=== PATIENT | female | born 1950 | race African-American/Black ===

== ENCOUNTER 2016-08-16 08:04 | Outpatient (CLI) | payer MEDICARE, MEDICAID ==
[~2016-08-16 08:04] MED LIST: ACETAMINOPHEN 325 MG TABLET PO PRN; DIPHENHYDRAMINE HCL 50 MG/ML VIAL IV PRN; FERRIC CARBOXYMALTOSE 750 MG in NORMAL SALINE 250 ML IV PRN; NORMAL SALINE 250 ML IV PRN
[2016-08-16 09:12] VITALS: BP 104/69
== END 2016-08-16 10:18 | disposition home or self-care (01) ==
LOC: II 08:04 → 5TH 08:07 → II 10:18
PROVIDERS: ATTEND Specialist
PROC: 3E033GC Introduction of Other Therapeutic Substance into Peripheral Vein, Percutaneous Approach (ICD-10-PCS; principal; 2016-08-16)
DX: D50.8 Other iron deficiency anemias (principal); K90.9 Intestinal malabsorption, unspecified
CPT/HCPCS: 96365; 96375; A9270; J1200; J7050; J1439; 96374

== ENCOUNTER 2016-08-23 09:24 | Outpatient (CLI) | payer MEDICARE, MEDICAID ==
[~2016-08-23 09:24] MED LIST changes: -DIPHENHYDRAMINE HCL 50 MG/ML VIAL IV PRN
[2016-08-23] MEDS: DIPHENHYDRAMINE HCL 50 MG/ML VIAL IV PRN ×2 (09:38→09:48)
== END 2016-08-23 10:28 | disposition home or self-care (01) ==
LOC: II 09:24 → 5TH 09:32 → II 10:28
PROVIDERS: ATTEND Specialist
PROC: 3E033GC Introduction of Other Therapeutic Substance into Peripheral Vein, Percutaneous Approach (ICD-10-PCS; principal; 2016-08-23)
DX: D50.8 Other iron deficiency anemias (principal); K90.9 Intestinal malabsorption, unspecified
CPT/HCPCS: 96365; 96375; A9270; J1200; J7050; J1439; 96374

== ENCOUNTER 2016-09-04 10:34 | Observation (INO) | payer MEDICARE, MEDICAID ==
--- NOTE | 2016-09-04 10:41 | ER Document Report ---
ED Medical Screen (RME) - General Chief Complaint: Slurred Speech Stated Complaint: WEAKNESS Time seen by provider: 10:39 Mode of Arrival: Wheelchair Information source: Patient Notes: 66 year old female presents to ED for slurred speech increased weakness and heaviness to the left arm jerking motion to the left arm for the last 3 days. She's had TIAs and strokes in the past with left-sided weakness. She does have a facial droop to the left. States has a little bit of a headache. She states her family tried to get her to, couple days ago she did not want to. I have greeted and performed a rapid initial assessment of this patient. A comprehensive ED assessment and evaluation of the patient, analysis of test results and completion of medical decision making process will be conducted by an additional ED providers. TRAVEL OUTSIDE OF THE [place] IN LAST 30 DAYS: No - Related Data Allergies/Adverse Reactions: No Known Allergies Allergy (Verified 07/04/16 09:25) Past Medical History - Past Medical History Cardiac Medical History: Reports: Hx Hypercholesterolemia Denies: Hx Coronary Artery Disease, Hx Heart Attack, Hx Hypertension Pulmonary Medical History: Reports: Hx Bronchitis, Hx COPD, Hx Pneumonia - hx of Denies: Hx Asthma Neurological Medical History: Denies: Hx Cerebrovascular Accident, Hx Seizures Renal/ Medical History: Reports: Hx Kidney Stones GI Medical History: Reports: Hx Gastroesophageal Reflux Disease, Hx Ulcer. Denies: Hx Hepatitis, Hx Hiatal Hernia Musculoskeltal Medical History: Reports Hx Arthritis - Back & legs Psychiatric Medical History: Reports: Hx Anxiety, Hx Depression, Hx Schizophrenia Infectious Medical History: Denies: Hx Hepatitis Past Surgical History: Reports: Hx Cholecystectomy, Hx Hysterectomy, Hx Orthopedic Surgery - Cervical fusion, Hx Tubal Ligation. Denies: Hx Mastectomy , Hx Open Heart Surgery, Hx Pacemaker - Immunizations Immunizations up to date: Yes Hx Diphtheria, Pertussis, Tetanus Vaccination: No - unknown
[2016-09-04 11:42] LABS: ABSOLUTE EOSINOPHILS # (AUTO) 0.2 10^3/uL (0.0-0.6); ABSOLUTE LYMPHOCYTES (AUTO) 1.9 10^3/uL (0.5-4.7); ABSOLUTE MONOCYTES (AUTO) 0.4 10^3/uL (0.1-1.4); ABSOLUTE NEUT (AUTO) 2.5 10^3/uL (1.7-8.2); BASOPHILS % (AUTO) 0.3 % (0-2); EOSINOPHILS % (AUTO) 3.6 % (0-6); HEMATOCRIT 33.7 % (36.0-47.0); HEMOGLOBIN 10.4 g/dL (12.0-15.5); HGB HCT DIFFERENCE -2.5; MEAN CORPUSCULAR HEMOGLOBIN 23.2 pg (27.0-33.4); MEAN CORPUSCULAR HGB CONC 30.9 g/dL (32.0-36.0); MEAN CORPUSCULAR VOLUME 75 fl (80-97); MONOCYTES % (AUTO) 8.7 % (3-13); RED BLOOD COUNT 4.49 10^6/uL (3.72-5.28); RED CELL DISTRIBUTION WIDTH 17.3 % (11.5-14.0); SEGMENTED NEUTROPHILS % (AUTO) 49.4 % (42-78); WHITE BLOOD COUNT 5.1 10^3/uL (4.0-10.5)
[2016-09-04 11:45] LABS: PROTHROMBIN TIME 11.7 SEC (11.4-15.4)
[2016-09-04 11:46] LABS: PARTIAL THROMBOPLASTIN TIME 24.2 SEC (23.5-35.8)
[2016-09-04 11:55] LABS: ALANINE AMINOTRANSFERASE 61 U/L (9-52); ALBUMIN 4.2 g/dL (3.5-5.0); ALKALINE PHOSPHATASE 66 U/L (38-126); ANION GAP 9 (5-19); ASPARTATE AMINO TRANSFERASE 48 U/L (14-36); BILIRUBIN,TOTAL 0.4 mg/dL (0.2-1.3); BLOOD UREA NITROGEN 14 mg/dL (7-20); CALCIUM 9.3 mg/dL (8.4-10.2); CARBON DIOXIDE 31 mmol/L (22-30); CHLORIDE 102 mmol/L (98-107); CREATINE KINASE 79 U/L (30-135); GLUCOSE 71 mg/dL (75-110); SODIUM 142.1 mmol/L (137-145); TOTAL PROTEIN 7.3 g/dL (6.3-8.2)
[2016-09-04 12:22] LABS: CREATINE KINASE MB 0.63 ng/mL (<4.55)
[2016-09-04 12:23] LABS: TROPONIN I < 0.012 ng/mL
--- NOTE | 2016-09-04 13:40 | ER Document Report ---
[id number] Patient Notes: Patient is a 66 year old female with significant past medical history including CVA in 2013 that presents to the emergency department today with complaints of "feeling sick". Upon questioning, the patient elaborates and includes that she has been having left sided upper/lower extremity weakness and slurred speech. Patient states she has been having visual disturbances as well. Patient states all of these complaints began two days ago and have remained present. Patient states she has had a headache and chest pain as well but the chest pain subsided yesterday. Patient denies any falls or shortness of breath. TRAVEL OUTSIDE OF THE [place] IN LAST 30 DAYS: No - HPI Patient complains to provider of: Speech Impairment, Vision Changes, Weakness Onset: Other - x2 days Symptoms are: Worse/persistent Duration: Continues in ED Quality of pain: Achy Loss of consciousness: No loss of consciousness New weakness: LUE, LLE Impaired speech/swallowing: Difficult Vision problem/glaucoma: Yes Similar symptoms previously: Yes Recently seen / treated by doctor: Yes <MARILUZ JARRELL - Last Filed: 09/04/16 14:29> <THANIA CASTELLON - Last Filed: 09/19/16 01:02> - General Chief Complaint: S/S of Possible Stroke Stated Complaint: WEAKNESS - Related Data Allergies/Adverse Reactions: No Known Allergies Allergy (Verified 09/04/16 10:39) Home Medications: Current Home Medications Aspirin/Dipyridamole [Aggrenox 25 mg-200 mg Capsule] 1 each PO DAILY 09/04/16 [ History] Buprenorphine [Butrans] 1 each TD MO@1000 09/04/16 [History] Calcium Carb & Citrate/Vit D3 [Calcium + D3 ER Tablet] 1 each PO DAILY 09/04/16 [History] Doxepin HCl 150 mg PO QHS 09/04/16 [History] Esomeprazole Magnesium [Nexium 24Hr] 20 mg PO DAILY 09/04/16 [History] Past Medical History - General Information source: Patient - Social History Smoking Status: Never Smoker Cigarette use (# per day): No Chew tobacco use (# tins/day): No Frequency of alcohol use: None Drug Abuse: None Lives with: Family Family History: Reviewed & Not Pertinent Patient has suicidal ideation: No Patient has homicidal ideation: No - Past Medical History Cardiac Medical History: Reports: Hx Hypercholesterolemia Pulmonary Medical History: Reports: Hx Bronchitis, Hx COPD, Hx Pneumonia - hx of Neurological Medical History: Reports: Hx Migraine Renal/ Medical History: Reports: Hx Kidney Stones GI Medical History: Reports: Hx Gastroesophageal Reflux Disease, Hx Ulcer Musculoskeltal Medical History: Reports Hx Arthritis - Back & legs Psychiatric Medical History: Reports: Hx Anxiety, Hx Depression, Hx Schizophrenia Past Surgical History: Reports: Hx Cholecystectomy, Hx Hysterectomy, Hx Orthopedic Surgery - Cervical fusion, Hx Tubal Ligation - Immunizations Immunizations up to date: Yes Hx Diphtheria, Pertussis, Tetanus Vaccination: No - unknown Hx Pneumococcal Vaccination: 08/12/09 <MARILUZ JARRELL - Last Filed: 09/04/16 14:29> Review of Systems - Review of Systems Constitutional: No symptoms reported EENT: No symptoms reported Cardiovascular: See HPI, Chest pain Respiratory: denies: Short of breath Gastrointestinal: No symptoms reported Genitourinary: No symptoms reported Female Genitourinary: No symptoms reported Musculoskeletal: No symptoms reported Skin: No symptoms reported Hematologic/Lymphatic: No symptoms reported Neurological/Psychological: See HPI, Headaches, Other - Slurred speech, Left Arm /Leg weakness -: Yes All other systems reviewed and negative <MARILUZ JARRELL - Last Filed: 09/04/16 14:29> Physical Exam - Vital signs Vitals: Temp Pulse Resp BP Pulse Ox 98.0 F 112 H 18 125/77 98 09/04/16 10:40 09/04/16 10:40 09/04/16 10:40 09/04/16 10:40 09/04/16 10:40 - General General appearance: Appears well, Alert In distress: None - HEENT Head: Normocephalic, Atraumatic Eyes: Normal Extraocular movements intact: Yes - Respiratory Respiratory status: No respiratory distress Chest status: Nontender Breath sounds: Normal - Cardiovascular Rhythm: Regular Heart sounds: Normal auscultation Murmur: No - Abdominal Inspection: Normal Distension: No distension Bowel sounds: Normal Tenderness: Nontender - Extremities General upper extremity: Nontender. No: Edema General lower extremity: Nontender. No: Edema - Neurological Cognition: Normal Speech: Other - slurred speech Motor strength normal: RUE, RLE Notes: 2/4 strength in both upper and lower extremities on the left, right sided facial droop. - Psychological Associated symptoms: Normal affect, Normal mood - Skin Skin Temperature: Warm Skin Moisture: Dry Skin Color: Normal <MARILUZ JARRELL - Last Filed: 09/04/16 14:29> - Vital signs Vitals: Temp Pulse Resp BP Pulse Ox 98.0 F 112 H 18 125/77 98 09/04/16 10:40 09/04/16 10:40 09/04/16 10:40 09/04/16 10:40 09/04/16 10:40 <THANIA CASTELLON - Last Filed: 09/19/16 01:02> Course - Vital Signs Vital signs: Temp Pulse Resp BP Pulse Ox 98.0 F 85 25 H 111/75 98 09/04/16 10:40 09/04/16 12:10 09/04/16 12:10 09/04/16 12:10 09/04/16 12:10 - Laboratory Result Diagrams: 09/04/16 11:15 09/04/16 11:15 Laboratory results interpreted by me: 09/04/16 09/04/16 11:15 11:15 Hgb 10.4 L Hct 33.7 L MCV 75 L MCH 23.2 L MCHC 30.9 L RDW 17.3 H Carbon Dioxide 31 H Glucose 71 L AST 48 H ALT 61 H <MARILUZ JARRELL - Last Filed: 09/04/16 14:29> - Re-evaluation Re-evalutation: 09/04/16 14:27 I personally performed the services described in the documentation, reviewed and edited the documentation which was dictated to my scribe in my presence, and it accurately records my words and actions. Patient presents emergency Department with a 2 day history of slurred speech left upper extremity left lower extremity weakness. She has history of CVA in the past and uses a walker or cane for left-sided weakness she does not normally have slurred speech that the slurred speech started 2 days ago and has been consistent which brought her in. She said she's definitely weaker in the left upper extremity left lower extremity to the point where she can't ambulate with walker and a cane. Denies any history of fall well-appearing nontoxic does have slurred speech on examination otherwise normal mental status 2 out of 4 strength in left upper extremity left lower extremity compared to 5 out of 5 on the right. Negative acute CT of the head labs are stable EKG is stable. We will admit to the hospital CVA not in the window of opportunity for thrombolytics further assessment and evaluation - Vital Signs Vital signs: Temp Pulse Resp BP Pulse Ox 98.0 F 85 25 H 111/75 98 09/04/16 10:40 09/04/16 12:10 09/04/16 12:10 09/04/16 12:10 09/04/16 12:10 - Laboratory Result Diagrams: 09/04/16 11:15 09/04/16 11:15 Laboratory results interpreted by me: 09/04/16 09/04/16 11:15 11:15 Hgb 10.4 L Hct 33.7 L MCV 75 L MCH 23.2 L MCHC 30.9 L RDW 17.3 H Carbon Dioxide 31 H Glucose 71 L AST 48 H ALT 61 H - EKG Interpretation by Me Additional EKG results interpreted by me: 09/04/16 14:25 EKG interpreted by myself normal sinus rhythm at [address] segment elevation or depression <THANIA CASTELLON - Last Filed: 09/19/16 01:02> Critical Care Note - Critical Care Note Total time excluding time spent on procedures (mins): 45 <THANIA CASTELLON - Last Filed: 09/19/16 01:02> ED [employer]/Exc Criteria ED NIH Stroke Scale Discharge <MARILUZ JARRELL - Last Filed: 09/04/16 14:29> - Discharge Admitting Provider: Hospitalist Unit Admitted: Telemetry <THANIA CASTELLON - Last Filed: 09/19/16 01:02> - Discharge Clinical Impression: CVA (cerebral vascular accident) Qualifiers: CVA mechanism: other Qualified Code(s): I63.8 - Other cerebral infarction Condition: Stable Disposition: ADMITTED INPATIENT Scribe Documentation - Scribe Written by Patel:: Patel Bae, 09/04/16 [id number] acting as scribe for :: Stevo <MARILUZ JARRELL - Last Filed: 09/04/16 14:29>
[2016-09-04 14:41] LABS: APPEARANCE,URINE CLEAR; BILIRUBIN,URINE NEGATIVE (NEGATIVE); GLUCOSE, URINE NEGATIVE (NEGATIVE); KETONES,URINE NEGATIVE (NEGATIVE); LEUKOCYTE ESTERASE,URINE NEGATIVE (NEGATIVE); NITRITE,URINE NEGATIVE (NEGATIVE); PROTEIN,URINE NEGATIVE (NEGATIVE); URINE SPECIFIC GRAVITY 1.012; UROBILINOGEN,URINE NEGATIVE mg/dL (<2.0)
[2016-09-04] MEDS ORDERED: DOCUSATE SODIUM 100 MG CAPSULE PO PRN (16:47)
[2016-09-04] MEDS ORDERED: ONDANSETRON HCL INJ/PF 4 MG/2 ML SDV IV PRN (16:47)
[2016-09-04] MEDS ORDERED: ACETAMINOPHEN 325 MG TABLET PO PRN (16:47)
[2016-09-04] MEDS ORDERED: TRAMADOL HCL 50 MG TABLET PO PRN (16:56)
--- NOTE | 2016-09-04 17:21 | PDOC H&P ---
History of Present Illness Admission Date/PCP: 09/04/16 14:45 BATOOL THOMAS PA-C Patient complains of: Worsening left-sided weakness and slurring of speech History of Present Illness: DIPESH BRAUN is a 66 year old female, with prior history of stroke with residual slurring of speech and left-sided weakness walks using a walker or cane percentage to the emergency room with worsening symptoms for the past 3 days. Patient noted dragging the left side more than usual and having more speech difficulty than usual. Patient does have a headache, but no doubling of vision, dizziness, lightheadedness or any fever and chills. No sinus congestion as well. Patient did have some chest pain 2 days ago characterized as tightness that resolved yesterday. The patient went to the emergency room, had multiple TIAs in the past, recent echocardiogram June 2016 shows a normal ejection fraction with no source of emboli. Carotid Doppler on February 2016 shows no hemodynamically significant stenosis. Initial CT scan in the emergency room was negative for any acute abnormality. The patient was then referred for admission. Past Medical History Past Medical History: Medication reconciliation pending verification from the patient's pharmacist. Cardiac Medical History: Reports: Hyperlipidema Denies: Coronary Artery Disease, Myocardial Infarction, Hypertension Pulmonary Medical History: Reports: Bronchitis, Chronic Obstructive Pulmonary Disease (COPD), Pneumonia - hx of Denies: Asthma Neurological Medical History: Reports: Ischemic CVA, Migraine Denies: Seizures Renal/ Medical History: Reports: Nephrolithiasis GI Medical History: Reports: Gastroesophageal Reflux Disease Denies: Hepatitis, Hiatal Hernia Musculoskeltal Medical History: Reports: Arthritis - Back & legs Psychiatric Medical History: Reports: Depression, General Anxiety Disorder Hematology: Reports: Anemia - Thalassemia trait, Sickle Cell Disease, Bleeding Tendencies Past Surgical History Past Surgical History: Reports: Cholecystectomy, Hysterectomy, Orthopedic Surgery - Cervical fusion, Tubal Ligation Denies: Amputation, Mastectomy, Pacemaker Social History Information Source: Patient Lives with: Family Smoking Status: Never Smoker Frequency of Alcohol Use: None Hx Recreational Drug Use: No Drugs: None Hx Prescription Drug Abuse: No Family History Family History: Hypertension Parental Family History Reviewed: Yes Children Family History Reviewed: Yes Sibling(s) Family History Reviewed.: Yes Medication/Allergy Home Medications: Aspirin/Acetaminophen/Caffeine [Excedrin Migraine Caplet] 1 tab-cap PO DAILY PRN 05/04/16 Aspirin/Dipyridamole [Aggrenox 25 mg-200 mg Capsule] 1 each PO DAILY 05/04/16 Buprenorphine [Butrans] 1 each TD ASDIR PRN 05/04/16 Calcium Carb & Citrate/Vit D3 [Calcium + D3 ER Tablet] 1 each PO DAILY 05/04/16 Doxepin HCl 150 mg PO QHS 05/04/16 Folic Acid 1 mg PO DAILY 05/04/16 Famotidine 40 mg PO BID #60 tablet 05/19/16 Nicotine Polacrilex [Nicotine Lozenge] 4 mg BC ASDIR PRN 05/24/16 Nicotine [Nicotine Patch] 1 each TD DAILY 05/24/16 Allergies/Adverse Reactions: No Known Allergies Allergy (Verified 09/04/16 10:39) Review of Systems Constitutional: PRESENT: headache(s), weakness - Left side. ABSENT: chills, fever(s), weight gain, weight loss Eyes: PRESENT: visual disturbances - Blurring of vision chronically, other - No eye pain Ears: ABSENT: hearing changes Nose, Mouth, and Throat: ABSENT: mouth pain, sore throat, vertigo Cardiovascular: PRESENT: chest pain. ABSENT: dyspnea on exertion, edema, orthropnea, palpitations Respiratory: ABSENT: cough, dyspnea, hemoptysis, sputum Gastrointestinal: ABSENT: abdominal pain, constipation, diarrhea, hematemesis, hematochezia, melena, nausea, vomiting Genitourinary: ABSENT: dysuria, hematuria Musculoskeletal: ABSENT: joint swelling Integumentary: ABSENT: pruritus, rash, wounds Neurological: PRESENT: abnormal gait - Chronic, uses a walker and cane for ambulation, abnormal speech - Chronic, but worse today.. ABSENT: confusion, dizziness, focal weakness, frequent falls, numbness, paresthesias, syncope Psychiatric: ABSENT: hallucinations, homidical ideation, suicidal ideation Endocrine: ABSENT: cold intolerance, heat intolerance, polydipsia, polyphagia, polyuria Hematologic/Lymphatic: ABSENT: easy bleeding, easy bruising Allergic/Immunologic: ABSENT: seasonal rhinorrhea Physical Exam Vital Signs: Temp Pulse Resp BP Pulse Ox 98.0 F 91 13 113/81 93 09/04/16 10:40 09/04/16 16:17 09/04/16 16:20 09/04/16 16:20 09/04/16 16:20 General appearance: PRESENT: no acute distress, cooperative, well-developed Head exam: PRESENT: atraumatic, normocephalic Eye exam: PRESENT: conjunctiva pink, EOMI, PERRLA. ABSENT: scleral icterus Ear exam: PRESENT: normal external ear exam. ABSENT: drainage Mouth exam: PRESENT: moist, neck supple, tongue midline, other - Uses dentures Throat exam: ABSENT: post pharyngeal erythema, tonsillar erythema Neck exam: ABSENT: carotid bruit, JVD, lymphadenopathy, thyromegaly Respiratory exam: PRESENT: clear to auscultation gerard. ABSENT: rales, rhonchi, wheezes Cardiovascular exam: PRESENT: RRR, +S1, +S2. ABSENT: diastolic murmur, gallop, rubs, systolic murmur Pulses: PRESENT: normal dorsalis pedis pul Vascular exam: PRESENT: normal capillary refill GI/Abdominal exam: PRESENT: normal bowel sounds, soft. ABSENT: distended, guarding, mass, organolmegaly, rebound, tenderness Rectal exam: PRESENT: deferred Extremities exam: PRESENT: full ROM, other - Trace lower extremity edema bilateral. ABSENT: calf tenderness, clubbing Neurological exam: PRESENT: alert, awake, oriented to person, oriented to place , oriented to time, oriented to situation, other - Speech is fluid but relates mild slurring, shallow left nasolabial fold, manual muscle testing 4 minus over 5 on the left, 4+ on the right. Psychiatric exam: PRESENT: appropriate affect, normal mood. ABSENT: agitated, homicidal ideation, suicidal ideation Focused psych exam: ABSENT: restlessness Skin exam: PRESENT: dry, intact, warm. ABSENT: cyanosis, rash Results Impressions: Head CT 09/04/16 10:37 IMPRESSION: NORMAL BRAIN CT WITHOUT CONTRAST. Assessment & Plan - Diagnosis (1) CVA (cerebral vascular accident) Qualifiers: CVA mechanism: other Qualified Code(s): I63.8 - Other cerebral infarction Is this a current diagnosis for this admission?: Yes (2) TIA (transient ischemic attack) Qualifiers: Transient cerebral ischemia type: unspecified Qualified Code(s): G45.9 - Transient cerebral ischemic attack, unspecified Is this a current diagnosis for this admission?: Yes (3) Chest pain Qualifiers: Chest pain type: unspecified Qualified Code(s): R07.9 - Chest pain, unspecified Is this a current diagnosis for this admission?: Yes (4) Anemia of chronic disease Is this a current diagnosis for this admission?: Yes (5) Chronic obstructive pulmonary disease (COPD) Qualifiers: Emphysema type: unspecified Is this a current diagnosis for this admission?: Yes (6) Migraine Qualifiers: Migraine type: unspecified Status migrainosus presence: without status migrainosus Intractability: not intractable Qualified Code(s): G43.909 - Migraine, unspecified, not intractable, without status migrainosus Is this a current diagnosis for this admission?: Yes (7) GERD (gastroesophageal reflux disease) Qualifiers: Esophagitis presence: without esophagitis Qualified Code(s): K21.9 - Gastro-esophageal reflux disease without esophagitis Is this a current diagnosis for this admission?: Yes (8) Anxiety and depression Is this a current diagnosis for this admission?: Yes - Time Time Spent: 30 to 50 Minutes - Plan Summary Plan Summary: The patient will be admitted to observation telemetry. We will continue the patient's Aggrenox and add aspirin. We will obtain MRI of the brain. Patient already had a recent echocardiogram and carotid Doppler. We will have physical therapy evaluate the patient. We will have speech therapy evaluate the swallowing. A fasting lipid panel will be obtained. Anemia profile will also be done. We will check serial cardiac enzymes 3. Further testing depends on the initial evaluation as outlined above.
[2016-09-04] MEDS ORDERED: ENOXAPARIN SODIUM INJ 40 MG/0.4 ML DISP.SYRIN SUBCUT ONE (17:45)
--- NOTE | 2016-09-04 18:42 | EKG REPORT ---
SEVERITY:- NORMAL ECG - SINUS RHYTHM : Confirmed by: Tammy Hendrix MD 04-Sep-2016 18:40:47
[2016-09-04 18:48] LABS: CREATINE KINASE 52 U/L (30-135)
[2016-09-04 20:00] LABS: FOLATE > 20.00 ng/mL (>2.76)
[2016-09-04] MEDS ORDERED: (PENDING PHARMACY ID) (Doxepin Hcl [Doxepin Hcl] 150 MG) PO SCH (22:00)
[2016-09-04] MEDS ORDERED: DOXEPIN HCL 25 MG CAPSULE PO ONE (23:30)
[2016-09-05] MEDS: LABETALOL HCL INJ 20 MG/4 ML DISP.SYRIN IV PRN ×5 (03:25→16:54)
[2016-09-05] MEDS ORDERED: LANSOPRAZOLE 30 MG TAB.RAP.DR PO SCH (06:00)
[2016-09-05 07:33] LABS: CHOLESTEROL 151.51 mg/dL (0-200); Direct HDL 34 mg/dL (>40); TRIGLYCERIDES 183 mg/dL (<150)
[2016-09-05 07:44] LABS: DIRECT LDL 88 mg/dL (<100)
[2016-09-05] MEDS ORDERED: ENOXAPARIN SODIUM INJ 40 MG/0.4 ML DISP.SYRIN SUBCUT SCH (08:00)
[2016-09-05 08:02] LABS: VLDL CHOLESTEROL 36.6 mg/dL (10-31)
[2016-09-05] MEDS ORDERED: ASPIRIN/DIPYRIDAMOLE 25-200 MG 1 CAP.SR CPMP.12HR PO SCH (10:00)
[2016-09-05] MEDS ORDERED: FOLIC ACID 1 MG TABLET PO SCH (10:00)
[2016-09-05] MEDS ORDERED: ASPIRIN 81 MG TABLET, CHEWABLE PO SCH (10:00)
--- NOTE | 2016-09-05 16:32 | Physician Advisory Note ---
Physician Advisor ProgressNote .: [facility], I have reviewed the medical record for this patient. Physician Advisor Statement: Possible documentation opportunities if attending agrees: 1A. "Acute TIA of ___ [site] w/worsened Lt nondominant hemiplegia & dysarthria "? - or - 1B. "Acute Rt-sided thrombotic [or embolic, or other etiology] ___ artery* CVA with cerebral infarction, with worsened Lt nondominant hemiparesis & dysarthria, both resolved/improved " [*Ant/middle/post cerebral , sup cerebellar, or ant/post inf cerebellar artery?] - or - 1C. "Acute due to atherosclerotic cerebrovascular dz with Lt nondominant hemiparesis & dysarthria, resolved. " [ or due to ] [ cerebrovascular insufficiency vs "reversible cerebrovascular vasoconstriction syndrome" - vs "Acute cerebral ischemia"] 2. ? - "chronic Lt hemiplegia due to possible previous CVA" [or ...] 3. "Chest pain, most likely due to ____" ["noncardiac" is not specific enough for coding, though] 4. "Chronic Anemia of chronic sickle thall dz" [or ...] - Need to specify type of chronic dz now. As always, if concerned about any unstable VS or abnormal labs, please comment on them & note what doing about them, & please document each day the potential clinical problems you are concerned could occur if pt not kept in hospital for tx at this time. Thanks for your help with documentation accuracy/specificity improvement! Sarai Borja MD [facility] Physician Advisor, Fellow of Hospital Medicine
--- NOTE | 2016-09-05 16:50 | PDOC DISCHARGE SUMMARY ---
General - Admit/Disc Date/PCP Admission Date/Primary Care Provider: 09/04/16 16:47 BATOOL THOMAS PA-C Discharge Date: 09/05/16 - Discharge Diagnosis (1) TIA (transient ischemic attack) Is this a current diagnosis for this admission?: Yes (2) Chest pain Is this a current diagnosis for this admission?: Yes (3) Anemia of chronic disease Is this a current diagnosis for this admission?: Yes (4) Chronic obstructive pulmonary disease (COPD) Is this a current diagnosis for this admission?: Yes (5) Migraine Is this a current diagnosis for this admission?: Yes (6) GERD (gastroesophageal reflux disease) Is this a current diagnosis for this admission?: Yes (7) Anxiety and depression Is this a current diagnosis for this admission?: Yes (8) History of stroke Is this a current diagnosis for this admission?: Yes - Additional Information Discharge Diet: Cardiac - low-fat low-salt Discharge Activity: Activity As Tolerated, Balance Activity w/Rest Home Medications: Aspirin/Dipyridamole [Aggrenox 25 mg-200 mg Capsule] 1 each PO DAILY 09/04/16 Buprenorphine [Butrans] 1 each TD MO@1000 09/04/16 Calcium Carb & Citrate/Vit D3 [Calcium + D3 ER Tablet] 1 each PO DAILY 09/04/16 Doxepin HCl 150 mg PO QHS 09/04/16 Esomeprazole Magnesium [Nexium 24Hr] 20 mg PO DAILY 09/04/16 Aspirin [Aspirin 81 mg Chewable Tablet] 81 mg PO DAILY tab.chew 09/05/16 Tramadol HCl [Ultram 50 mg Tablet] 50 mg PO Q8HP PRN #30 tablet 09/05/16 Additional Information: Stress test as outpatient with primary care physician History of Present Illness Patient complains of: Increasing weakness and slurring of speech History of Present Illness: DIPESH BRAUN is a 66 year old female, with prior history of stroke with residual slurring of speech and left-sided weakness walks using a walker or cane percentage to the emergency room with worsening symptoms for the past 3 days. Patient noted dragging the left side more than usual and having more speech difficulty than usual. Patient does have a headache, but no doubling of vision, dizziness, lightheadedness or any fever and chills. No sinus congestion as well. Patient did have some chest pain 2 days ago characterized as tightness that resolved yesterday. The patient went to the emergency room, had multiple TIAs in the past, recent echocardiogram June 2016 shows a normal ejection fraction with no source of emboli. Carotid Doppler on February 2016 shows no hemodynamically significant stenosis. Initial CT scan in the emergency room was negative for any acute abnormality. The patient was then referred for admission. Hospital Course Hospital Course: The patient was admitted to telemetry under observation. An MRI of the brain was ordered. The patient was placed on antiplatelet therapy with aspirin in addition to her Aggrenox. She was given supplemental oxygen and likewise DVT prophylaxis with Lovenox. Serial cardiac enzymes were obtained and they were negative for myocardial infarction. Patient does not want to have a stress test done while in the hospital facility. Speech therapy was obtained and recommended to have therapy on an outpatient basis for improvement in function. Physical therapy will be added as well with home health. MRI of the brain eventually was obtained and was negative for any acute stroke. Patient had a recent Doppler of her carotids that was negative for significant stenosis. She had a recent echocardiogram done as well showing no significant valvular disease. The patient's symptoms had improved. Likely transient ischemic attack could have attributed to her symptoms of which she has always been aware. The rest of the hospital stay is unremarkable. Physical Exam Vital Signs: Temp Pulse Resp BP Pulse Ox 98.2 F 102 H 19 115/81 98 09/05/16 15:51 09/05/16 16:00 09/05/16 16:00 09/05/16 16:00 09/05/16 16:00 Intake & Output 09/04/16 09/05/16 09/06/16 06:59 06:59 06:59 Intake Total 5 0 Balance 5 0 Weight 65.4 kg General appearance: PRESENT: no acute distress, cooperative Head exam: PRESENT: normocephalic Eye exam: PRESENT: EOMI Mouth exam: PRESENT: moist, neck supple Neck exam: ABSENT: JVD Respiratory exam: PRESENT: clear to auscultation gerard Cardiovascular exam: PRESENT: RRR GI/Abdominal exam: PRESENT: normal bowel sounds, soft. ABSENT: distended, tenderness Extremities exam: ABSENT: pedal edema Neurological exam: PRESENT: alert, awake, oriented to situation, other - Shallow left nasolabial fold unchanged, right-sided 4+/5, left side 4-/5. Psychiatric exam: PRESENT: normal mood. ABSENT: agitated Focused psych exam: ABSENT: restlessness Skin exam: PRESENT: dry, warm. ABSENT: cyanosis Results Laboratory Results: 09/04/16 09/05/16 18:30 06:39 Iron 124 TIBC 273 % Saturation 45 Ferritin 907.00 H Triglycerides 183 H Cholesterol 151.51 LDL Cholesterol Direct 88 VLDL Cholesterol 36.6 H HDL Cholesterol 34 L Vitamin B12 281.0 Folate > 20.00 09/04/16 09/04/16 09/05/16 18:30 18:30 00:26 Creatine Kinase 52 61 Troponin I < 0.012 09/05/16 09/05/16 09/05/16 00:26 06:39 06:39 Creatine Kinase 58 Troponin I < 0.012 0.017 Impressions: Head CT 09/04/16 10:37 IMPRESSION: NORMAL BRAIN CT WITHOUT CONTRAST. Head MRI 09/05/16 07:09 IMPRESSION: NORMAL MRI OF THE BRAIN WITHOUT INTRAVENOUS GADOLINIUM CONTRAST. Qualifiers PATEINT BEING DISCHARGED WITH ANY OF THE FOLLOWING DIAGNOSIS?: No Plan Discharge Plan: Follow-up with primary care physician in one week. Time Spent: Less than 30 Minutes
[2016-09-05 16:56] VITALS: BP 114/79
[2016-09-05] MEDS ORDERED: DOXEPIN HCL 25 MG CAPSULE PO SCH (22:00)
== END 2016-09-05 17:09 | disposition home health service (06) ==
LOC: ER 10:34 → INTOOBSV 14:45 → EH 14:45 → UNDOADMOB 14:45 → EH 16:47 → 3N 09-05 01:50
DX: G45.9 Transient cerebral ischemic attack, unspecified (principal); R07.9 Chest pain, unspecified; D57.40 Sickle-cell thalassemia without crisis; J44.9 Chronic obstructive pulmonary disease, unspecified; G43.909 Migraine, unspecified, not intractable, without status migrainosus; K21.9 Gastro-esophageal reflux disease without esophagitis; F41.8 Other specified anxiety disorders; E78.5 Hyperlipidemia, unspecified; M19.90 Unspecified osteoarthritis, unspecified site; Z79.82 Long term (current) use of aspirin
CPT/HCPCS: 93005; 99291; 51701; 36415 ×2; 82553; 82607; 82550 ×2; 82728; 82746; 83540; 83550; 85025; 85610; 85730; 85045; 80053; 81001; 84484 ×2; 80061; 70551; 70450; 93010; 97162; 92610; 92523; 97167; G0378 ×3; A9270 ×6; J1650 ×2; J3490; G8978; G8979; G8980; G8999; G9186; G9158; G8987; G8988; G8989

== ENCOUNTER → 2017-04-22 | Outpatient (CLI) | payer MEDICARE, MEDICAID ==
--- NOTE | 2017-04-22 11:32 | WOMENS IMAGING REPORT ---
EXAM DESCRIPTION: BILAT SCREENING MAMMO W/CAD COMPLETED DATE/TIME: 04/22/2017 8:38 am REASON FOR STUDY: SCREENING MAMMO Z12.31 ENCNTR SCREEN MAMMOGRAM FOR MALIGNANT NEOPLASM OF LILY COMPARISON: 2011 TECHNIQUE: Standard craniocaudal and mediolateral oblique views of each breast recorded using digita l acquisition. LIMITATIONS: None. FINDINGS: No masses, calcifications or architectural distortion. No areas of suspicion. Read with the assistance of CAD. .[facility] - R2 Cenova Version 1.3 .[facility] Imaging - R2 Cenova Version 1.3 .[facility] Imaging - R2 Cenova Version 2.4 .[facility] [place]2 Cenova Version 2.4 .[facility] - R2 Balance Truer Version 9.2 IMPRESSION: NORMAL MAMMOGRAM. BIRADS 1. BREAST DENSITY: c. The breasts are heterogeneously dense, which may obscure small masses. BIRAD: 1 NEGATIVE RECOMMENDATION: ROUTINE SCREENING COMMENT: The patient has been notified of the results by letter per SA requirements. Additional no tification policies are in place for contacting patient with suspicious or incomplete findings. Quality ID #[id number]: The [employer] recommends an annual screening mammogram for women aged 40 years or over. This facility utilizes a reminder system to ensure that all patients receive reminder letters, and/or direct phone calls for appointments. This includes reminders for routine scr eening mammograms, diagnostic mammograms, or other Breast Imaging Interventions when appropriate. Th is patient will be placed in the appropriate reminder system. The [employer] (ACR) has developed recommendations for screening MRI of the breast s in certain patient populations, to be used in conjunction with mammography. Breast MRI surveillanc e may be appropriate for women with more than 20% lifetime risk of developing breast cancer as deter mined by genetic testing, significant family history of the disease, or history of mantle radiation f or Hodgkins Disease. ACR Practice Guidelines 2008. TECHNICAL DOCUMENTATION: FINDING NUMBER: (1) ASSESSMENT: (1) JOB ID: [id number] [employer]- All Rights Reserved
== END ==
LOC: WI 08:02
PROVIDERS: ATTEND Physician Assistant
DX: Z12.31 Encounter for screening mammogram for malignant neoplasm of breast (principal)
CPT/HCPCS: 77067; G0202

== ENCOUNTER → 2017-06-28 | Outpatient (CLI) | payer MEDICARE, MEDICAID ==
--- NOTE | 2017-06-28 11:34 | RADIOLOGY REPORT (SQ) ---
EXAM DESCRIPTION: CHEST PA/LATERAL COMPLETED DATE/TIME: 06/28/2017 11:21 am REASON FOR STUDY: COUGH COMPARISON: CT angio chest 03/05/2015 Chest films 05/29/2015, 02/10/2016 EXAM PARAMETERS: NUMBER OF VIEWS: two views TECHNIQUE: Digital Frontal and Lateral radiographic views of the chest acquired. RADIATION DOSE: NA LIMITATIONS: none FINDINGS: LUNGS AND PLEURA: No acute infiltrates. No pleural effusion or pneumothorax. Minimal lef t basilar scarring or atelectasis similar compared to CT angio chest 03/05/2015. MEDIASTINUM AND HILAR STRUCTURES: No masses or contour abnormalities. HEART AND VASCULAR STRUCTURES: Heart normal size. No evidence for failure. BONES: Multiple old healed right rib fractures. Lower cervical fusion hardware. HARDWARE: Clips right upper quadrant post cholecystectomy OTHER: No other significant finding. IMPRESSION: No acute findings TECHNICAL DOCUMENTATION: JOB ID: [id number] [employer]- All Rights Reserved
== END ==
LOC: OD 11:04
PROVIDERS: ATTEND Physician Assistant
DX: R05 Cough (principal)
CPT/HCPCS: 71020

== ENCOUNTER 2017-07-04 16:26 | Emergency (ER) | payer MEDICARE, MEDICAID ==
--- NOTE | 2017-07-04 18:04 | RADIOLOGY REPORT (SQ) ---
EXAM DESCRIPTION: CT HEAD WITHOUT COMPLETED DATE/TIME: 07/04/2017 5:41 pm REASON FOR STUDY: Sharp pain right scalp for 2 days, Hx stroke 3 COMPARISON: MRI brain 09/05/[address] exams since 12/03/2006, most recently 09/04/2016 TECHNIQUE: Axial images acquired through the brain without intravenous contrast. Images reviewed wi th bone, brain and subdural windows. Images stored on PACS. All CT scanners at this facility use dose modulation, iterative reconstruction, and/or weight based d osing when appropriate to reduce radiation dose to as low as reasonably achievable (ALARA). [facility]: Dose Right [facility]: CareDose [facility]: Dose Right [facility]: Teradose 4D [facility]: Duplia RADIATION DOSE: CT Rad equipment meets quality standard of care and radiation dose reduction techniq ues were employed. CTDIvol: 64.6 mGy. DLP: 1034 mGy-cm. mGy. LIMITATIONS: Motion artifact FINDINGS: VENTRICLES: Normal size and contour. CEREBRUM: No masses. No hemorrhage. No midline shift. No evidence for acute infarction. Normal gra y/white matter differentiation. No areas of low density in the white matter. CEREBELLUM: No masses. No hemorrhage. No alteration of density. No evidence for acute infarction. EXTRAAXIAL SPACES: No fluid collections. No masses. ORBITS AND GLOBE: No intra- or extraconal masses. Normal contour of globe without masses. CALVARIUM: No fracture. PARANASAL SINUSES: No fluid or mucosal thickening. SOFT TISSUES: No mass or hematoma. OTHER: No other significant finding. IMPRESSION: Motion artifact. Limited negative study EVIDENCE OF ACUTE STROKE: NO. COMMENT: Quality ID # [id number]: Final reports with documentation of one or more dose reduction techniques (e.g., Automated exposure control, adjustment of the mA and/or kV according to patient size, use of iterative reconstruction technique) TECHNICAL DOCUMENTATION: JOB ID: [id number] [employer]- All Rights Reserved
[2017-07-04] MEDS ORDERED: HYDROCODONE/ACETAMINOPHEN 5-325 MG 6 TAB/DSPK PO PRN ×2 (18:26→18:28)
[2017-07-04 18:31] VITALS: BP 106/77
--- NOTE | 2017-07-04 18:34 | ER Document Report ---
ED Headache - General Chief Complaint: Headache Stated Complaint: HEADACHE Time Seen by Provider: 07/04/17 16:53 Notes: Patient says she is experiencing a sharp pain in the right side of her scalp since Saturday. She has a history of migraine headaches which she gets headaches all over her abdomen, but this pain is different. She is also having her 1 of her migraine headaches. The sharp pain comes and goes. She is tried Aleve and Tylenol and Tylenol 3's which she has to take for her migraine headaches, which are global in nature. Her vision is somewhat blurred. Denies any fever. Is nauseated but not vomiting. No head congestion or sinus congestions. Denies fever. Patient has had 3 strokes in the past, primarily affecting her left side, resulting in her walking with a cane or walker. TRAVEL OUTSIDE OF THE [place] IN LAST 30 DAYS: No - Related Data Allergies/Adverse Reactions: No Known Allergies Allergy (Verified 07/04/17 16:27) Past Medical History - Social History Smoking Status: Unknown if Ever Smoked Cigarette use (# per day): No Family History: Reviewed & Not Pertinent, Hypertension - Past Medical History Cardiac Medical History: Reports: Hx Hypercholesterolemia Denies: Hx Coronary Artery Disease, Hx Heart Attack, Hx Hypertension Pulmonary Medical History: Reports: Hx Bronchitis, Hx COPD, Hx Pneumonia - hx of Denies: Hx Asthma Neurological Medical History: Reports: Hx Cerebrovascular Accident - 3 prior strokes resulting in left-sided weakness., Hx Migraine. Denies: Hx Seizures Renal/ Medical History: Reports: Hx Kidney Stones GI Medical History: Reports: Hx Gastroesophageal Reflux Disease, Hx Ulcer Musculoskeltal Medical History: Reports Hx Arthritis - Back & legs Psychiatric Medical History: Reports: Hx Anxiety, Hx Depression, Hx Schizophrenia Past Surgical History: Reports: Hx Cholecystectomy, Hx Gynecologic Surgery - Pelvic abscess surgery, Hx Hysterectomy, Hx Orthopedic Surgery - Cervical fusion , Hx Tubal Ligation, Other - Cataract surgery - Immunizations Immunizations up to date: Yes Hx Diphtheria, Pertussis, Tetanus Vaccination: No - unknown Hx Pneumococcal Vaccination: 08/12/09 Review of Systems - Review of Systems Notes: REVIEW OF SYSTEMS: CONSTITUTIONAL : Denies fever. EENT: Denies eye, ear, nose or mouth or throat pain or other symptoms. CARDIOVASCULAR: Denies chest pain. RESPIRATORY: Denies cough, chest congestion, or shortness of breath. GASTROINTESTINAL: Denies abdominal pain or vomiting, or diarrhea. Has some nausea. GENITOURINARY: Denies difficulty or painful urinating, urinary frequency, blood in urine. MUSCULOSKELETAL: Denies back or neck pain. Denies joint pain or swelling. SKIN: Denies rash or skin lesions. NEUROLOGICAL: Denies LOC or altered mental status. Denies sensory loss or motor deficits. ALL OTHER SYSTEMS REVIEWED AND NEGATIVE. Physical Exam - Vital signs Vitals: Temp Pulse Resp BP Pulse Ox 98.1 F 85 22 H 141/75 H 96 07/04/17 16:27 07/04/17 16:27 07/04/17 16:27 07/04/17 16:27 07/04/17 16:27 Interpretation: Normal - Notes Notes: PHYSICAL EXAMINATION: GENERAL: Well-appearing, in no acute distress. Vital signs are all essentially normal. HEAD: Atraumatic, normocephalic. EYES: Pupils equal round and reactive to light, extraocular movements intact. ENT: oropharynx clear without exudates. Moist mucous membranes. NECK: Normal range of motion, supple. LUNGS: Breath sounds clear and equal bilaterally. HEART: Regular rate and rhythm without murmurs. ABDOMEN: Soft, nontender. No guarding or rebound. BACK: No tenderness throughout entire back. EXTREMITIES: Normal range of motion without pain. NEUROLOGICAL: Normal speech, patient's gait is affected by her residual weakness of the left side for which she needs to use a cane in order to walk.. Normal sensory, motor, and reflex exams. Awake, alert, and oriented x3. PSYCH: Normal mood, normal affect. SKIN: Warm, dry, no rashes. Course - Vital Signs Vital signs: Temp Pulse Resp BP Pulse Ox 97.8 F 78 20 106/77 98 07/04/17 18:29 07/04/17 18:29 07/04/17 18:29 07/04/17 18:29 07/04/17 18:29 - Diagnostic Test Radiology reviewed: Image reviewed, Reports reviewed - CT scan was limited by motion artifact, but no acute conditions noted. Discharge - Discharge Clinical Impression: Headache Condition: Stable Disposition: HOME, SELF-CARE Additional Instructions: HEADACHE: The physician does not feel that the headache you are experiencing has a serious underlying cause. Most headaches are due to emotional stress, with resultant muscle tension (tension headache). Occasionally, headaches are secondary to changes in the blood vessels of the scalp (vascular headache and migraine headache). Sometimes, a headache is the first symptom of another developing illness, such as a viral infection. You have no evidence of stroke, bleeding, meningitis, or other serious cause of your headache. The treatment of headaches varies with the severity and cause of the pain. Not all headaches need pain shots. In fact, there is evidence that using narcotics for headaches may make them worse in the long run. The physician will determine the therapy that's in your best interest. If you develop a fever, if the headache is different from any you've previously experienced, or if the headache progressively worsens, then call your physician at once or go to the emergency room. Your CT scan did not show any acute abnormality. There is no evidence of another stroke. ORAL NARCOTIC MEDICATION: You have been given a prescription for pain control. This medication is a narcotic. It's best taken with food, as nausea can result if taken on an empty stomach. Don't operate machinery or drive within six hours of taking this medication. Do not combine this medicine with alcohol, or with any medication which can cause sedation (such as cold tablets or sleeping pills) unless you get permission from the physician. Narcotics tend to cause constipation. If possible, drink plenty of fluids and eat a diet high in fiber and fruits. FOLLOW-UP CARE: If you have been referred to a physician for follow-up care, call the physician s office for an appointment as you were instructed or within the next two days. If you experience worsening or a significant change in your symptoms, notify the physician immediately or return to the Emergency Department at any time for re-evaluation. Follow-up with your primary care provider on Saturday if you are not doing any better. Return to the emergency department for reevaluation at any time if you have further concerns. Referrals: BATOOL THOMAS PA-C [Primary Care Provider] - Follow up in 3-5 days
== END 2017-07-04 19:20 | disposition home or self-care (01) ==
LOC: ER 16:26
DX: R51 Headache (principal); Z79.899 Other long term (current) drug therapy
CPT/HCPCS: 99283; 70450; A9270

== ENCOUNTER 2017-07-28 08:42 | Emergency (ER) | payer MEDICARE, MEDICAID ==
[2017-07-28 08:49] VITALS: BP 113/75
[2017-07-28] MEDS ORDERED: CYCLOBENZAPRINE HCL 10 MG TABLET PO ONE (09:29)
--- NOTE | 2017-07-28 09:34 | ER Document Report ---
ED Fall - General Chief Complaint: Fall Stated Complaint: FALL/NECK PAIN Time Seen by Provider: 07/28/17 09:13 Mode of Arrival: Ambulatory Information source: Patient Notes: Patient is a 67-year-old female with history of 3 strokes and left-sided weakness who presents to the ER today for a fall after she lost her footing going to the bathroom yesterday. Patient states that she fell onto her knees and caught herself with the door jam with her hands. Patient is complaining that since the fall she is felt not to her left upper chest, collarbone and pain with rotating her head to the left or looking upwards. She states that she can look to the right without any pain. She also complains of right lower back pain with no radiation down her legs or numbness or tingling. She denies any loss of bladder or bowel function. TRAVEL OUTSIDE OF THE [place] IN LAST 30 DAYS: No - Related data Allergies/Adverse Reactions: No Known Allergies Allergy (Verified 07/04/17 16:27) Past Medical History - General Information source: Patient - Social History Smoking Status: Current Some Day Smoker Chew tobacco use (# tins/day): No Frequency of alcohol use: None Drug Abuse: None Family History: Reviewed & Not Pertinent, Hypertension Patient has suicidal ideation: No Patient has homicidal ideation: No - Past Medical History Cardiac Medical History: Reports: Hx Hypercholesterolemia Denies: Hx Coronary Artery Disease, Hx Heart Attack, Hx Hypertension Pulmonary Medical History: Reports: Hx Bronchitis, Hx COPD, Hx Pneumonia - hx of Denies: Hx Asthma Neurological Medical History: Reports: Hx Cerebrovascular Accident - 3 prior strokes resulting in left-sided weakness., Hx Migraine. Denies: Hx Seizures Renal/ Medical History: Reports: Hx Kidney Stones. Denies: Hx Peritoneal Dialysis GI Medical History: Reports: Hx Gastroesophageal Reflux Disease, Hx Ulcer. Denies: Hx Hepatitis, Hx Hiatal Hernia Musculoskeltal Medical History: Reports Hx Arthritis - Back & legs Psychiatric Medical History: Reports: Hx Anxiety, Hx Depression, Hx Schizophrenia Infectious Medical History: Denies: Hx Hepatitis Past Surgical History: Reports: Hx Cholecystectomy, Hx Gynecologic Surgery - Pelvic abscess surgery, Hx Hysterectomy, Hx Orthopedic Surgery - Cervical fusion , Hx Tubal Ligation, Other - Cataract surgery. Denies: Hx Mastectomy, Hx Open Heart Surgery, Hx Pacemaker - Immunizations Immunizations up to date: Yes Hx Diphtheria, Pertussis, Tetanus Vaccination: No - unknown Hx Pneumococcal Vaccination: 08/12/09 Review of Systems - Review of Systems Constitutional: No symptoms reported EENT: No symptoms reported Cardiovascular: No symptoms reported Respiratory: No symptoms reported Gastrointestinal: No symptoms reported Genitourinary: No symptoms reported Female Genitourinary: No symptoms reported Musculoskeletal: See HPI Skin: See HPI Hematologic/Lymphatic: No symptoms reported Neurological/Psychological: No symptoms reported Physical Exam - Vital signs Vitals: Temp Pulse Resp BP Pulse Ox 98.5 F 102 H 16 113/75 98 07/28/17 08:48 07/28/17 08:48 07/28/17 08:48 07/28/17 08:48 07/28/17 08:48 - Notes Notes: PHYSICAL EXAMINATION: GENERAL: Appears older than stated age, walking with cane, in no acute distress. HEAD: Atraumatic, normocephalic. EYES: Pupils equal round and reactive to light, extraocular movements intact, sclera anicteric, conjunctiva are normal. NECK: Limited range of motion with rotation of the head to the left and extension looking upwards, supple without lymphadenopathy LUNGS: CTAB and equal. No wheezes rales or rhonchi. HEART: Regular rate and rhythm without murmurs EXTREMITIES: tender to right medial clavicle, Normal range of motion, no pitting edema. No cyanosis. NEUROLOGICAL: Cranial nerves grossly intact. Normal sensory/motor exams. PSYCH: Normal mood, normal affect. SKIN: Warm, Dry, normal turgor, no rashes or lesions noted Course - Re-evaluation Re-evalutation: 07/28/17 10:39 Clavicle and cervical x-rays negative for any acute pathology today. Patient will be given a low dose of Flexeril and discharged home. - Vital Signs Vital signs: Temp Pulse Resp BP Pulse Ox 98.5 F 102 H 16 113/75 98 07/28/17 08:48 07/28/17 08:48 07/28/17 08:48 07/28/17 08:48 07/28/17 08:48 Discharge - Discharge Clinical Impression: Neck pain Fall Qualifiers: Encounter type: initial encounter Qualified Code(s): W19.XXXA - Unspecified fall, initial encounter Condition: Stable Disposition: HOME, SELF-CARE Additional Instructions: Return immediately for any new or worsening symptoms. Follow up with primary care provider, call tomorrow to make followup appointment. Prescriptions: Cyclobenzaprine HCl [Flexeril 5 mg Tablet] 5 mg PO TID #15 tablet
--- NOTE | 2017-07-28 10:33 | RADIOLOGY REPORT (SQ) ---
EXAM DESCRIPTION: CLAVICLE LEFT COMPLETED DATE/TIME: 07/28/2017 10:04 am REASON FOR STUDY: fall, pain COMPARISON: Chest films 06/28/2017 NUMBER OF VIEWS: Two views. TECHNIQUE: Frontal and angled images were acquired of the left clavicle. LIMITATIONS: None. FINDINGS: MINERALIZATION: Osteopenic BONES: No acute fracture or dislocation. No worrisome bone lesions. No widening of the acromioclavi cular display fabricator. No gross glenohumeral malalignment. SOFT TISSUES: No obvious swelling or foreign body. OTHER: Lower cervical fusion hardware. IMPRESSION: NEGATIVE STUDY OF THE LEFT CLAVICLE. NO RADIOGRAPHIC EVIDENCE OF ACUTE INJURY. TECHNICAL DOCUMENTATION: JOB ID: [id number] [employer]- All Rights Reserved
--- NOTE | 2017-07-28 10:34 | RADIOLOGY REPORT (SQ) ---
EXAM DESCRIPTION: CERV SP 3 VIEW OR LESS COMPLETED DATE/TIME: 07/28/2017 10:04 am REASON FOR STUDY: fall, pain COMPARISON: Cervical spine films 09/13/2010 NUMBER OF VIEWS: Three views. TECHNIQUE: AP, lateral and odontoid radiographic images acquired of the cervical spine. LIMITATIONS: None. FINDINGS: MINERALIZATION: Osteoporotic ALIGNMENT: Anatomic. VERTEBRAE: Vertebral bodies of normal height. DISCS: Old fusion with anterior hardware at C5, C6, and C7. Advanced disc space loss of height at C3 -4 and C4-5 HARDWARE: None in the spine. SOFT TISSUES: No masses or calcifications. Lung apices clear. OTHER: No other significant finding. IMPRESSION: No acute findings TECHNICAL DOCUMENTATION: JOB ID: [id number] [employer]- All Rights Reserved
== END 2017-07-28 10:44 | disposition home or self-care (01) ==
LOC: ER 08:42
DX: M54.2 Cervicalgia (principal); R53.1 Weakness; M54.5 Low back pain; W19.XXXA Unspecified fall, initial encounter; F17.200 Nicotine dependence, unspecified, uncomplicated
CPT/HCPCS: 99283; 72040; 73000; A9270

== ENCOUNTER 2017-10-09 15:14 | Emergency (ER) | payer MEDICARE, MEDICAID ==
--- NOTE | 2017-10-09 16:24 | ER Document Report ---
ED General - General Chief Complaint: Numbness Stated Complaint: NUMB ON LEFT SIDE Time Seen by Provider: 10/09/17 15:44 Notes: Patient says she is experiencing sharp pains in the left side of her neck since Saturday. It hurts to turn her head to the right. She has had this once previously many years ago and it lasted 1 day and went away and she has never had any more problem. She recalls no unusual activity and definitely no injury to the neck. Also, for these 2 days, her left arm feels heavy and numb. The numbness includes her hand and fingers of the left arm. Does not involve the right arm and does not involve the legs. Patient has had previous TIAs, mini strokes, but has not had these symptoms with those conditions. Patient is currently on Aggrenox to prevent TIAs. Says she had surgery and a metal plate was placed in her throat for scoliosis. Patient says the doctor made a mistake and that was supposed to go in her lower back?? TRAVEL OUTSIDE OF THE [place] IN LAST 30 DAYS: No - Related Data Allergies/Adverse Reactions: No Known Allergies Allergy (Verified 10/09/17 15:18) Past Medical History - Social History Smoking Status: Unknown if Ever Smoked Family History: Reviewed & Not Pertinent, Hypertension Patient has suicidal ideation: No Patient has homicidal ideation: No - Past Medical History Cardiac Medical History: Reports: Hx Hypercholesterolemia Pulmonary Medical History: Reports: Hx Bronchitis, Hx COPD, Hx Pneumonia - hx of Neurological Medical History: Reports: Hx Cerebrovascular Accident - 3 prior strokes resulting in left-sided weakness., Hx Migraine, Other - has some neurologic disorder causes odd head and neck movements when speaki Renal/ Medical History: Reports: Hx Kidney Stones GI Medical History: Reports: Hx Gastroesophageal Reflux Disease, Hx Ulcer Musculoskeltal Medical History: Reports Hx Arthritis - Back & legs Psychiatric Medical History: Reports: Hx Anxiety, Hx Depression, Hx Schizophrenia Infectious Medical History: Denies: Hx Hepatitis Past Surgical History: Reports: Hx Cholecystectomy, Hx Gynecologic Surgery - Pelvic abscess surgery, Hx Hysterectomy, Hx Orthopedic Surgery - Cervical fusion , Hx Tubal Ligation, Other - Cataract surgery - Immunizations Immunizations up to date: Yes Hx Diphtheria, Pertussis, Tetanus Vaccination: No - unknown Hx Pneumococcal Vaccination: 08/12/09 Review of Systems - Review of Systems Notes: REVIEW OF SYSTEMS: CONSTITUTIONAL : Denies fever, but has had some chills. EENT: Denies ear, nose or mouth or throat pain or other symptoms. Patient had cataract surgery in June and then had laser treatments of her eyes in August. Supposed to be using eyedrops every hour. CARDIOVASCULAR: Denies chest pain. RESPIRATORY: Denies cough, chest congestion, or shortness of breath. GASTROINTESTINAL: Denies abdominal pain or nausea, vomiting, or diarrhea. GENITOURINARY: Denies difficulty or painful urinating, urinary frequency, blood in urine. MUSCULOSKELETAL: Denies back or neck pain. Denies joint pain or swelling. SKIN: Denies rash or skin lesions. NEUROLOGICAL: Denies LOC or altered mental status. Denies headache. Denies sensory loss or motor deficits. 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 Patient's not sure what her condition is, perhaps Parkinson's, although she does not exhibit any true tremor. Patient says she has seen a neurologist for this and was told that there was no treatment for it. She does not currently see a neurologist. ALL OTHER SYSTEMS REVIEWED AND NEGATIVE. Physical Exam - Vital signs Vitals: Temp Pulse Resp BP Pulse Ox 98.9 F 93 16 132/77 H 98 10/09/17 15:21 10/09/17 15:21 10/09/17 15:21 10/09/17 15:21 10/09/17 15:21 Interpretation: Normal - Notes Notes: PHYSICAL EXAMINATION: GENERAL: Well-appearing, in no acute distress. Vital signs are essentially normal. HEAD: Atraumatic, normocephalic. EYES: Pupils equal round and reactive to light, extraocular movements intact. ENT: oropharynx clear without exudates. Moist mucous membranes. NECK: Normal range of motion, supple. Tender left side of the neck, but I do not see any swelling or deformity present. No change in voice and no difficulty swallowing. Patient exhibits athetoid motions of her head and neck when she talks. See my discussion of this issue under review of systems. LUNGS: Breath sounds clear and equal bilaterally. HEART: Regular rate and rhythm without murmurs. ABDOMEN: Soft, nontender. No guarding or rebound. No masses. BACK: No tenderness throughout entire back. EXTREMITIES: Normal range of motion without pain. Patient can move her left arm. She seems to have normal sensation. She has excellent pulses at the wrist and good capillary nail bed filling. NEUROLOGICAL: Normal speech, normal gait. Normal sensory, motor, and reflex exams. Awake, alert, and oriented x3. PSYCH: Normal mood, normal affect. SKIN: Warm, dry, no rashes. Course - Re-evaluation Re-evalutation: 10/10/17 01:09 All of the patient's studies are showing normal results. If patient did have a small stroke 2 days ago, I do not see anything additional that she is going to have accomplished by being admitted to the hospital. She already is on Aggrenox and is very knowledgeable of her health and condition. She is in agreement that there is nothing they were going to provide her in the hospital at this time that she cannot do or have done at home - Vital Signs Vital signs: Temp Pulse Resp BP Pulse Ox 97.9 F 89 18 146/85 H 100 10/09/17 19:25 10/09/17 19:25 10/09/17 19:25 10/09/17 19:25 10/09/17 19:25 - Laboratory Result Diagrams: 10/09/17 15:44 10/09/17 15:44 Laboratory results interpreted by me: 10/09/17 10/09/17 10/09/17 15:44 15:44 17:48 Hgb 9.9 L Hct 30.8 L MCV 74 L MCH 23.8 L RDW 15.8 H Est GFR (Non-Af Amer) 54 L Total Bilirubin < 0.1 L Urine Blood SMALL H Discharge - Discharge Clinical Impression: Left arm weakness, TIA (transient ischemic attack), Neck pain on left side Condition: Stable Disposition: HOME, SELF-CARE Additional Instructions: Transient Ischemic Attack You have been diagnosed as having a possible transient ischemic attack (TIA ). This is caused when an artery to the brain has been temporarily blocked. It can result in visual changes, difficulty with speech, and weakness or numbness -- usually limited to one side of the body. TIA symptoms usually resolve within an hour, but a TIA is serious, as it may be a warning sign of an impending stroke. To prevent further episodes, you may be placed on medication to reduce the possibility that your platelets will aggregate and form blood clots in the arteries that supply the brain. Usually, this includes aspirin and sometimes other platelet inhibitors. Further evaluation is often necessary to make an exact diagnosis as to where these blood clots are originating, and if anything else needs to be done to correct the problem. Call the physician or go to the emergency room if episodes occur with increasing frequency. If symptoms occur that don't go away within a few minutes , call 911. You may have had a small stroke Stroke occurs when a blood vessel to the brain is blocked. Symptoms of stroke can include visual changes, confusion, difficulty with speech, and weakness or numbness of the face, arm, or leg. Some strokes are extremely serious, while others cause hardly any symptoms at all. Not all strokes require hospitalization. The symptoms of stroke usually improve with time. Physical therapy and exercise help you recover. To avoid further episodes, you may be placed on medication to slow blood clotting. This may include aspirin or sometimes other "blood thinning" medicine. Further evaluation is often necessary to see where the blood clots are originating. Call 911 or go to the nearest emergency room at once if you have any stroke symptoms. You should return if there is increasing confusion or inappropriate sleepiness, spreading areas of weakness, increasing headache, decreasing vision, or vomiting. There does not appear to be any additional workup or treatment that is needed. Continue to take the current medications that you have, including the Aggrenox. I would recommend you call your primary care provider, Ms. Thomas tomorrow for follow-up evaluation and care. Return if you develop new or worsening symptoms of any sort. FOLLOW-UP CARE: If you have been referred to a physician for follow-up care, call the physician s office for an appointment as you were instructed or within the next two days. If you experience worsening or a significant change in your symptoms, notify the physician immediately or return to the Emergency Department at any time for re-evaluation. Referrals: BATOOL THOMAS PA-C [Primary Care Provider] - Follow up as needed
[2017-10-09 16:47] LABS: ABSOLUTE EOSINOPHILS # (AUTO) 0.1 10^3/uL (0.0-0.6); ABSOLUTE LYMPHOCYTES (AUTO) 1.9 10^3/uL (0.5-4.7); ABSOLUTE MONOCYTES (AUTO) 0.3 10^3/uL (0.1-1.4); ABSOLUTE NEUT (AUTO) 3.5 10^3/uL (1.7-8.2); BASOPHILS % (AUTO) 0.4 % (0-2); EOSINOPHILS % (AUTO) 1.9 % (0-6); HEMATOCRIT 30.8 % (36.0-47.0); HEMOGLOBIN 9.9 g/dL (12.0-15.5); LYMPHOCYTES % (AUTO) 32.8 % (13-45); MEAN CORPUSCULAR HEMOGLOBIN 23.8 pg (27.0-33.4); MEAN CORPUSCULAR VOLUME 74 fl (80-97); MONOCYTES % (AUTO) 5.4 % (3-13); PLATELET COUNT 256 10^3/uL (150-450); RED BLOOD COUNT 4.15 10^6/uL (3.72-5.28); RED CELL DISTRIBUTION WIDTH 15.8 % (11.5-14.0); SEGMENTED NEUTROPHILS % (AUTO) 59.5 % (42-78); TOTAL CELLS COUNTED % (AUTO) 100 %; WHITE BLOOD COUNT 5.8 10^3/uL (4.0-10.5)
[2017-10-09 16:49] LABS: ALANINE AMINOTRANSFERASE 26 U/L (9-52); ALKALINE PHOSPHATASE 57 U/L (38-126); ANION GAP 7 (5-19); ASPARTATE AMINO TRANSFERASE 17 U/L (14-36); BLOOD UREA NITROGEN 14 mg/dL (7-20); CALCIUM 9.6 mg/dL (8.4-10.2); CARBON DIOXIDE 30 mmol/L (22-30); CHLORIDE 103 mmol/L (98-107); GLUCOSE 77 mg/dL (75-110); POTASSIUM 4.4 mmol/L (3.6-5.0); SODIUM 139.9 mmol/L (137-145); TOTAL PROTEIN 7.3 g/dL (6.3-8.2)
[2017-10-09 16:53] LABS: BILIRUBIN,TOTAL < 0.1 mg/dL (0.2-1.3)
--- NOTE | 2017-10-09 17:53 | RADIOLOGY REPORT (SQ) ---
EXAM DESCRIPTION: CTA HEAD COMPLETED DATE/TIME: 10/09/2017 5:33 pm REASON FOR STUDY: Left arm weakness, questionable stroke COMPARISON: Non contrasted brain CT scan dated 07/04/2017 TECHNIQUE: Pre and post IV contrast scanning, thin section axial imaging through the brain to evalua te the arterial structures. Source and MIP images are saved and reviewed on PACS. Advanced 3D imaging as volume-rendering, MIPs, SSD performed? yes All CT scanners at this facility use dose modulation, iterative reconstruction, and/or weight based d osing when appropriate to reduce radiation dose to as low as reasonably achievable (ALARA). [facility]: Dose Right [facility]: CareDose [facility]: Dose Right [facility]: Teradose 4D [facility]: Trovali CONTRAST TYPE AND DOSE: 70 yokasta Isovue 370 RENAL FUNCTION: Creatinine 1.02 LIMITATIONS: None. FINDINGS: [place]: The anterior, middle, posterior cerebral arteries are all patent. No ev idence of aneurysm or focal stenosis. POSTERIOR CIRCULATION: The distal vertebral arteries are patent as is the basilar artery. No aneurysm . BRAIN: No gross enhancing lesions as visualized. The superior cerebral hemispheres are not included in the field of view. BONES: Intact as visualized. SINUSES: No fluid or mucosal thickening. OTHER: No other significant finding. IMPRESSION: NO CTA EVIDENCE OF STENOSIS OR ANEURYSM OF THE [place]. TECHNICAL DOCUMENTATION: JOB ID: [id number] Quality ID # 436: Final reports with documentation of one or more dose reduction techniques (e.g., Au tomated exposure control, adjustment of the mA and/or kV according to patient size, use of iterative reconstruction technique) 2010 [employer]- All Rights Reserved Reading location - IP/workstation name: [email or web address]
--- NOTE | 2017-10-09 17:57 | RADIOLOGY REPORT (SQ) ---
EXAM DESCRIPTION: CTA NECK COMPLETED DATE/TIME: 10/09/2017 5:33 pm REASON FOR STUDY: Left neck pain? Swelling, left arm weakness COMPARISON: None. TECHNIQUE: Axial dynamic scanning technique with dynamic contrast enhancement through the extra-aircraft delivery checker nial carotid and vertebral arteries. Multiplanar reconstruction. 3-D MIPS and Volume-rendered imag es acquired at the workstation and saved to PACS. Images are reviewed in soft tissue, bone, lung w indows. All CT scanners at this facility use dose modulation, iterative reconstruction, and/or weight based d osing when appropriate to reduce radiation dose to as low as reasonably achievable (ALARA). [facility]: Dose Right [facility]: CareDose [facility]: Dose Right [facility]: Teradose 4D [facility]: [employer] CONTRAST TYPE AND DOSE: contrast/concentration: Isovue 370.00 mg/ml; Total Contrast Delivered: 70.0 ml; Total Saline Delivered: 75.0 ml RENAL FUNCTION: Creatinine 1.02 LIMITATIONS: None. FINDINGS: AORTIC ARCH: Normal three-vessel origin. Bilateral subclavian arteries are patent. No d issection. RIGHT CAROTIDS: Patent common, internal and external carotid arteries without suggestion of significa nt stenosis or irregular plaque. No dissection. RIGHT VERTEBRAL: Patent. No dissection. LEFT CAROTIDS: Patent common, internal and external carotid arteries without suggestion of significan t stenosis or irregular plaque. No dissection. LEFT VERTEBRAL: Patent. No dissection. OTHER: Postsurgical and degenerative changes are identified in the cervical spine. Small left thyroid nodule is identified. OTHER: 3-D reconstructions confirm findings.. IMPRESSION: NORMAL CTA OF THE EXTRA-CRANIAL CAROTID AND VERTEBRAL ARTERIES. COMMENT: Quality ID #[id number]: Measurements of distal internal carotid diameter were used as the denomina tor for stenosis measurement. TECHNICAL DOCUMENTATION: JOB ID: [id number] Quality ID # 436: Final reports with documentation of one or more dose reduction techniques (e.g., Au tomated exposure control, adjustment of the mA and/or kV according to patient size, use of iterative reconstruction technique) 2010 [employer]- All Rights Reserved Reading location - IP/workstation name: [email or web address]
[2017-10-09 18:13] LABS: APPEARANCE,URINE CLEAR; BILIRUBIN,URINE NEGATIVE (NEGATIVE); COLOR,URINE STRAW; GLUCOSE, URINE NEGATIVE (NEGATIVE); KETONES,URINE NEGATIVE (NEGATIVE); LEUKOCYTE ESTERASE,URINE NEGATIVE (NEGATIVE); NITRITE,URINE NEGATIVE (NEGATIVE); PROTEIN,URINE NEGATIVE (NEGATIVE); URINE SPECIFIC GRAVITY 1.003; UROBILINOGEN,URINE NEGATIVE mg/dL (<2.0)
[2017-10-09 19:27] VITALS: BP 146/85
--- NOTE | 2017-10-10 13:00 | EKG REPORT ---
SEVERITY:- BORDERLINE ECG - SINUS RHYTHM BORDERLINE PROLONGED QT INTERVAL : Confirmed by: Hector Freeman MD 10-Oct-2017 13:00:12
== END 2017-10-09 19:25 | disposition home or self-care (01) ==
LOC: ER 15:14
DX: G45.9 Transient cerebral ischemic attack, unspecified (principal); M54.2 Cervicalgia; R20.0 Anesthesia of skin; M79.602 Pain in left arm; Z86.73 Personal history of transient ischemic attack (TIA), and cerebral infarction without residual deficits
CPT/HCPCS: 36415; 70496; 70498; 80053; 81001; 85025; 93005; 93010; 99284

== ENCOUNTER → 2017-10-23 | Outpatient (CLI) | payer MEDICARE, MEDICAID ==
--- NOTE | 2017-10-23 14:13 | RADIOLOGY REPORT (SQ) ---
EXAM DESCRIPTION: CHEST PA/LATERAL COMPLETED DATE/TIME: 10/23/2017 1:56 pm REASON FOR STUDY: OTH SYMPTOMS SIGNS INV. CIRC AND RESP,DYSPHAGIA COMPARISON: 06/28/2017 EXAM PARAMETERS: NUMBER OF VIEWS: two views TECHNIQUE: Digital Frontal and Lateral radiographic views of the chest acquired. RADIATION DOSE: NA LIMITATIONS: none FINDINGS: LUNGS AND PLEURA: No opacities, masses or pneumothorax. No pleural effusion. MEDIASTINUM AND HILAR STRUCTURES: No masses or contour abnormalities. HEART AND VASCULAR STRUCTURES: Heart normal size. No evidence for failure. BONES: No acute findings. Old healed right rib fractures are again identified. HARDWARE: Orthopedic hardware is again identified in the lower cervical spine OTHER: No other significant finding. IMPRESSION: No significant interval change. No acute findings. Other findings as noted above TECHNICAL DOCUMENTATION: JOB ID: [id number] [employer]- All Rights Reserved Reading location - IP/workstation name: [email or web address]
--- NOTE | 2017-10-23 14:29 | RADIOLOGY REPORT (SQ) ---
EXAM DESCRIPTION: SOFT TISSUE NECK COMPLETED DATE/TIME: 10/23/2017 1:56 pm REASON FOR STUDY: OTH SYMPTOMS SIGNS INV. CIRC AND RESP,DYSPHAGIA R13.10 DYSPHAGIA, UNSPECIFIED R 09.89 OTH SYMPTOMS AND SIGNS INVOLVING THE CIRC AND RESP SY COMPARISON: CTA of the neck dated 10/09/2017 NUMBER OF VIEWS: Two views. TECHNIQUE: AP and lateral radiographic image of the soft tissues of the neck. LIMITATIONS: None. FINDINGS: EPIGLOTTIS: Normal. Contour normal. Aryepiglottic folds normal. PREVERTEBRAL SOFT TISSUES: Normal. No soft tissue swelling. SUBGLOTTIC AREA: Normal. No narrowing. RETROPHARYNGEAL SPACE: Normal. No soft tissue masses. BONES: Orthopedic hardware is identified in the lower cervical spine. Degenerative changes are ident ified LUNG APICES: Normal. OTHER: No radiopaque foreign body. No other significant finding. IMPRESSION: No significant findings. TECHNICAL DOCUMENTATION: JOB ID: [id number] [employer]- All Rights Reserved Reading location - IP/workstation name: [email or web address]
== END ==
LOC: OD 13:38
PROVIDERS: ATTEND Nurse Practitioner Acute Care
DX: R13.10 Dysphagia, unspecified (principal); R09.89 Other specified symptoms and signs involving the circulatory and respiratory systems
CPT/HCPCS: 70360; 71046

== ENCOUNTER 2017-11-01 23:20 | Emergency (ER) | payer MEDICARE, MEDICAID ==
[2017-11-01 23:26] VITALS: BP 131/81
[2017-11-01] MEDS ORDERED: OXYMETAZOLINE HCL 0.05% NASAL SPRAY 15 ML BOTTLE NASL ONE (23:38)
--- NOTE | 2017-11-02 00:39 | ER Document Report ---
ED General - General Chief Complaint: Nose Bleed Stated Complaint: NOSE BLEED Time Seen by Provider: 11/01/17 23:38 Notes: Patient is a 67 year old female currently anticoagulated Aggrenox who presents with concerns of an intermittent nosebleed today. Patient states that she has had small amounts of dribbling blood from her nostril intermittently throughout the day. However, she reports that the bleeding has spontaneously stopped prior to my assessment without intervention. She notes that she has frequent nosebleeds similar to when she has had today. She has not seen her primary doctor regarding today's concerns. She denies any abdominal pain, hematemesis, shortness of breath, or facial trauma. No syncope, lightheadedness, orthostasis , exertional dyspnea, or chest pain. She has not noted that anything improves or worsens her symptoms. TRAVEL OUTSIDE OF THE [place] IN LAST 30 DAYS: No - Related Data Allergies/Adverse Reactions: No Known Allergies Allergy (Verified 10/09/17 15:18) Past Medical History - General Information source: Patient - Social History Smoking Status: Current Every Day Smoker Chew tobacco use (# tins/day): No Frequency of alcohol use: None Drug Abuse: None Lives with: Family Family History: Reviewed & Not Pertinent, Hypertension Patient has suicidal ideation: No Patient has homicidal ideation: No - Past Medical History Cardiac Medical History: Reports: Hx Hypercholesterolemia Denies: Hx Coronary Artery Disease, Hx Heart Attack, Hx Hypertension Pulmonary Medical History: Reports: Hx Bronchitis, Hx COPD, Hx Pneumonia - hx of Denies: Hx Asthma Neurological Medical History: Reports: Hx Cerebrovascular Accident - 3 prior strokes resulting in left-sided weakness., Hx Migraine. Denies: Hx Seizures Renal/ Medical History: Reports: Hx Kidney Stones. Denies: Hx Peritoneal Dialysis GI Medical History: Reports: Hx Gastroesophageal Reflux Disease, Hx Ulcer. Denies: Hx Hepatitis, Hx Hiatal Hernia Musculoskeltal Medical History: Reports Hx Arthritis - Back & legs Psychiatric Medical History: Reports: Hx Anxiety, Hx Depression, Hx Schizophrenia Infectious Medical History: Denies: Hx Hepatitis Past Surgical History: Reports: Hx Cholecystectomy, Hx Gynecologic Surgery - Pelvic abscess surgery, Hx Hysterectomy, Hx Orthopedic Surgery - Cervical fusion , Hx Tubal Ligation, Other - Cataract surgery. Denies: Hx Mastectomy, Hx Open Heart Surgery, Hx Pacemaker - Immunizations Immunizations up to date: Yes Hx Diphtheria, Pertussis, Tetanus Vaccination: No - unknown Hx Pneumococcal Vaccination: 08/12/09 Review of Systems - Review of Systems Notes: Constitutional: Negative for fever. HENT: Negative for sore throat. Positive for nosebleed Eyes: Negative for visual changes. Cardiovascular: Negative for chest pain. Respiratory: Negative for shortness of breath. Gastrointestinal: Negative for abdominal pain, vomiting or diarrhea. Genitourinary: Negative for dysuria. Musculoskeletal: Negative for back pain. Skin: Negative for rash. Neurological: Negative for headaches, weakness or numbness. 10 point ROS negative except as marked above and in HPI. Physical Exam - Vital signs Vitals: Temp Pulse Resp BP Pulse Ox 98.4 F 108 H 18 131/81 H 99 11/01/17 23:24 11/01/17 23:24 11/01/17 23:24 11/01/17 23:24 11/01/17 23:24 Interpretation: Tachycardic - Resolved at the time of my assessment Notes: PHYSICAL EXAMINATION: GENERAL: Well-appearing, well-nourished and in no acute distress. HEAD: Atraumatic, normocephalic. EYES: Pupils equal round and reactive to light, extraocular movements intact, sclera anicteric, conjunctiva are normal. ENT: nares patent, Small abrasion to the proximal septum on the right, oropharynx clear without exudates. Moist mucous membranes. NECK: Normal range of motion, supple without lymphadenopathy LUNGS: Breath sounds clear to auscultation bilaterally and equal. No wheezes rales or rhonchi. HEART: Regular rate and rhythm without murmurs ABDOMEN: Soft, nontender, normoactive bowel sounds. No guarding, no rebound. No masses appreciated. EXTREMITIES: Normal range of motion, no pitting or edema. No cyanosis. NEUROLOGICAL: No focal neurological deficits. Moves all extremities spontaneously and on command. PSYCH: Normal mood, normal affect. SKIN: Warm, Dry, normal turgor, no rashes or lesions noted. Course - Re-evaluation Re-evalutation: 11/02/17 00:38 Patient presents with a small amount of bleeding from her right nostril which has since stopped. There is a small excoriation to the nasal septum on the right with associated dry skin to the area. Patient notes that the bleeding was very small today and is otherwise hemodynamically within normal limits. No tachycardia at time of assessment and no hypotension. Given the absence of any significant bleeding, symptoms or signs to suggest a clinically significant bleed prior to hospitalization, I do not see indication for labs or imaging at this time. I have instructed the patient to continue to moisturize the inside of her nose and provide her Afrin that she can use at home as needed should she redevelop a small bleed. At this time will discharge with return precautions and follow-up recommendations. Verbal discharge instructions given a the bedside and opportunity for questions given. Medication warnings reviewed. Patient is in agreement with this plan and has verbalized understanding of return precautions and the need for primary care follow-up in the next 24-72 hours. - Vital Signs Vital signs: Temp Pulse Resp BP Pulse Ox 98.4 F 108 H 18 131/81 H 99 11/01/17 23:24 11/01/17 23:24 11/01/17 23:24 11/01/17 23:24 11/01/17 23:24 Discharge - Discharge Clinical Impression: Nosebleed Condition: Good Disposition: HOME, SELF-CARE Additional Instructions: You were seen today for a nosebleed. If this restarts please apply direct pressure to the area for 15 minutes without releasing pressure. You can use 4- 5 sprays the Afrin (oxymetazoline) spray that was given to you here in the emergency room into the affected side prior to applying the pressure. You need to apply vasaline or a similar product along the inside of the side of the nose that is bleeding twice daily to help heal the inside of your nose. Please return to emergency department if these measures do not control the bleeding. Please also return if you pass out, have significant pain of the nose or face, or any other symptoms that are concerning to you. Your primary care doctor regarding today's visit.it. Referrals: BATOOL THOMAS PA-C [Primary Care Provider] - Follow up as needed
== END 2017-11-02 01:20 | disposition home or self-care (01) ==
LOC: ER 23:20
DX: R04.0 Epistaxis (principal); F17.200 Nicotine dependence, unspecified, uncomplicated; E78.00 Pure hypercholesterolemia, unspecified; J44.9 Chronic obstructive pulmonary disease, unspecified; Z90.49 Acquired absence of other specified parts of digestive tract; Z90.710 Acquired absence of both cervix and uterus; Z98.1 Arthrodesis status
CPT/HCPCS: 99283; J3490

== ENCOUNTER → 2017-11-01 | Outpatient (CLI) | payer MEDICARE, MEDICAID ==
--- NOTE | 2017-11-01 09:38 | RADIOLOGY REPORT (SQ) ---
EXAM DESCRIPTION: HIP LEFT AP/LATERAL COMPLETED DATE/TIME: 11/01/2017 9:26 am REASON FOR STUDY: PAIN IN LEFT HIP M25.552 PAIN IN LEFT HIP COMPARISON: 10/01/2010 NUMBER OF VIEWS: Two views. TECHNIQUE: AP pelvis and additional frog-leg view of the left hip. LIMITATIONS: None. FINDINGS: MINERALIZATION: Osteopenic LEFT HIP: No fracture or dislocation. No worrisome bone lesions. RIGHT HIP: No fracture or dislocation. No worrisome bone lesions. PUBIS AND ISCHIUM: No fracture. PELVIS: No fracture. SACRUM: No fracture or dislocation. No worrisome bone lesions. LOWER LUMBAR SPINE: No fracture or dislocation. No worrisome bone lesions. No significant disc disea se. SOFT TISSUES: No findings. OTHER: No other significant finding. IMPRESSION: NEGATIVE STUDY OF THE LEFT HIP AND PELVIS. NO RADIOGRAPHIC EVIDENCE OF ACUTE INJURY. TECHNICAL DOCUMENTATION: JOB ID: [id number] [employer]- All Rights Reserved Reading location - IP/workstation name: [email or web address]
== END ==
LOC: OD 09:08
PROVIDERS: ATTEND Physician Assistant
DX: M25.552 Pain in left hip (principal)

== ENCOUNTER 2017-11-02 20:27 | Emergency (ER) | payer MEDICARE, MEDICAID ==
[2017-11-02] MEDS ORDERED: OXYMETAZOLINE HCL 0.05% NASAL SPRAY 15 ML BOTTLE NASL ONE (21:24)
--- NOTE | 2017-11-02 21:24 | ER Document Report ---
ED ENT - General Chief Complaint: Nose Bleed Stated Complaint: NOSE BLEED Time Seen by Provider: 11/02/17 21:11 Notes: 67-year-old female. Recent CVA. On Aggrenox. Recurrent nosebleed. Was seen in the emergency department last night but the bleeding had stopped. He received some Afrin and instructions to continue with Afrin at home. Patient states that she has tried it but it has started bleeding again. Requesting a nasal packing. States that she has had her nose packed on several occasions. Lives with her brother. Denies any other symptoms other than a headache at this time TRAVEL OUTSIDE OF THE [place] IN LAST 30 DAYS: No - HPI Onset: Yesterday - Related Data Allergies/Adverse Reactions: No Known Allergies Allergy (Verified 10/09/17 15:18) Past Medical History - General Information source: Patient - Social History Smoking Status: Smoker,Current Status Unk Frequency of alcohol use: None Drug Abuse: None Lives with: Family Family History: Reviewed & Not Pertinent, Hypertension - Past Medical History Cardiac Medical History: Reports: Hx Hypercholesterolemia Denies: Hx Coronary Artery Disease, Hx Heart Attack, Hx Hypertension Pulmonary Medical History: Reports: Hx Bronchitis, Hx COPD, Hx Pneumonia - hx of Denies: Hx Asthma Neurological Medical History: Reports: Hx Cerebrovascular Accident - 3 prior strokes resulting in left-sided weakness., Hx Migraine. Denies: Hx Seizures Renal/ Medical History: Reports: Hx Kidney Stones. Denies: Hx Peritoneal Dialysis GI Medical History: Reports: Hx Gastroesophageal Reflux Disease, Hx Ulcer. Denies: Hx Hepatitis, Hx Hiatal Hernia Musculoskeltal Medical History: Reports Hx Arthritis - Back & legs Psychiatric Medical History: Reports: Hx Anxiety, Hx Depression, Hx Schizophrenia Infectious Medical History: Denies: Hx Hepatitis Past Surgical History: Reports: Hx Cholecystectomy, Hx Gynecologic Surgery - Pelvic abscess surgery, Hx Hysterectomy, Hx Orthopedic Surgery - Cervical fusion , Hx Tubal Ligation, Other - Cataract surgery. Denies: Hx Mastectomy, Hx Open Heart Surgery, Hx Pacemaker - Immunizations Immunizations up to date: Yes Hx Diphtheria, Pertussis, Tetanus Vaccination: No - unknown Hx Pneumococcal Vaccination: 08/12/09 Review of Systems - Review of Systems Constitutional: denies: Fever, Malaise, Weakness EENT: See HPI, Other - Nosebleed Cardiovascular: denies: Chest pain, Palpitations, Syncope, Dizziness Respiratory: denies: Cough, Hurts to breathe, Short of breath, Wheezing Skin: denies: Lesions, Lumps, Rash Hematologic/Lymphatic: Easy bleeding, Easy bruising. denies: Anemia, Blood clots Physical Exam - Vital signs Vitals: Temp Pulse BP Pulse Ox 98.4 F 100 121/79 98 11/02/17 20:39 11/02/17 20:39 11/02/17 20:39 11/02/17 20:39 Interpretation: Tachycardic - General General appearance: Alert - HEENT Head: Normocephalic - Small amount of bleeding in the right nare Eyes: Normal - Respiratory Respiratory status: No respiratory distress Chest status: Nontender Breath sounds: Normal Chest palpation: Normal - Cardiovascular Rhythm: Regular Heart sounds: Normal auscultation Murmur: No Course - Re-evaluation Re-evalutation: 11/02/17 22:31 Consent was obtained for nasal packing. A 5.5 Rhino Rocket was inserted without complications. Antibiotics given. DC - Vital Signs Vital signs: Temp Pulse Resp BP Pulse Ox 98.4 F 100 121/79 98 11/02/17 20:39 11/02/17 20:39 11/02/17 20:39 11/02/17 20:39 Discharge - Discharge Clinical Impression: Epistaxis Condition: Good Disposition: HOME, SELF-CARE Instructions: Nosebleed Instructions ([facility]) Additional Instructions: Take medications as prescribed. Return in 3 days or follow-up with your regular doctor for removal of nasal packing. Return for any further concerns. Prescriptions: Amoxicillin 500 mg PO TID 3 Days #9 capsule Referrals: BATOOL THOMAS PA-C [Primary Care Provider] - Follow up as needed
[2017-11-02] MEDS ORDERED: AMOXICILLIN TRIHYDRATE 500 MG CAPSULE PO ONE (21:52)
[2017-11-02] MEDS ORDERED: OXYCODONE-ACETAMINOPHEN 5-325 MG TABLET PO ONE (21:52)
[2017-11-02] MEDS ORDERED: HYDROCODONE/ACETAMINOPHEN 5-325 MG (6 TAB/ER DISP) PO PRN (23:00)
[2017-11-02 23:13] VITALS: BP 121/83
== END 2017-11-02 23:13 | disposition home or self-care (01) ==
LOC: ER 20:27
DX: R04.0 Epistaxis (principal); J44.9 Chronic obstructive pulmonary disease, unspecified; Z86.73 Personal history of transient ischemic attack (TIA), and cerebral infarction without residual deficits; Z79.02 Long term (current) use of antithrombotics/antiplatelets
CPT/HCPCS: 99282; 30901; A9270 ×3; J3490

== ENCOUNTER 2017-11-05 07:07 | Emergency (ER) | payer MEDICARE, MEDICAID ==
--- NOTE | 2017-11-05 07:51 | ER Document Report ---
HPI - HPI Patient complains to provider of: Nasal packing removal request Onset: Other - 11-02 Pain Level: 5 Context: 67-year-old female was seen in the emergency department twice on November 02 for right nares bleeding. The second visit required a Rhino Rocket placed and she was put on amoxicillin 3 times a day #9. She continues Aggrenox. She has not seen any blood anteriorly but she felt like it was bleeding again. Her blood pressure was found to be 83/62 and when it was rechecked with a smaller cuff because she is tiny the blood pressure was 86/60. I reviewed her old records and only saw a blood pressure in the 90s once. So this low blood pressure is unusual for her. She says she does get periods of dizziness. She wears a pain patch as well as taking Percocet every 8 hours. No nausea or vomiting. No chest pain shortness of breath or abdominal pain. Give her a 500 cc bolus and recheck her vital signs, Nexium lab work. Associated Symptoms: None Exacerbated by: Denies Relieved by: Denies Similar symptoms previously: Yes Recently seen / treated by doctor: Yes - ROS ROS below otherwise negative: Yes Systems Reviewed and Negative: Yes All other systems reviewed and negative - REPRODUCTIVE Reproductive: DENIES: : Past Medical History - General Information source: Patient - Social History Smoking Status: Unknown if Ever Smoked Frequency of alcohol use: None Drug Abuse: None Lives with: Family - Brother Family History: Reviewed & Not Pertinent, Hypertension - Past Medical History Cardiac Medical History: Reports: Hx Hypercholesterolemia Pulmonary Medical History: Reports: Hx Bronchitis, Hx COPD, Hx Pneumonia - hx of Neurological Medical History: Reports: Hx Cerebrovascular Accident - 3 prior strokes resulting in left-sided weakness., Hx Migraine Renal/ Medical History: Reports: Hx Kidney Stones. Denies: Hx Peritoneal Dialysis GI Medical History: Reports: Hx Gastroesophageal Reflux Disease, Hx Ulcer Musculoskeltal Medical History: Reports Hx Arthritis - Back & legs Psychiatric Medical History: Reports: Hx Anxiety, Hx Depression, Hx Schizophrenia Infectious Medical History: Denies: Hx Hepatitis Past Surgical History: Reports: Hx Cholecystectomy, Hx Gynecologic Surgery - Pelvic abscess surgery, Hx Hysterectomy, Hx Orthopedic Surgery - Cervical fusion , Hx Tubal Ligation, Other - Cataract surgery - Immunizations Immunizations up to date: Yes Hx Diphtheria, Pertussis, Tetanus Vaccination: No - unknown Hx Pneumococcal Vaccination: 08/12/09 Vertical Provider Document - CONSTITUTIONAL Agree With Documented VS: Yes - hypotensive Exam Limitations: No Limitations General Appearance: No Apparent Distress - INFECTION CONTROL TRAVEL OUTSIDE OF THE [place] IN LAST 30 DAYS: No - HEENT HEENT: Normocephalic Notes: no posterior pharynx bleeding, right rhino rocket in place, 36 hours would be 22 :30 tonight - NECK Neck: Supple - RESPIRATORY Respiratory: Breath Sounds Normal, No Respiratory Distress - CARDIOVASCULAR Cardiovascular: Regular Rate, Regular Rhythm - GI/ABDOMEN Gastrointestinal: Abdomen Soft, Abdomen Non-Tender - MUSCULOSKELETAL/EXTREMETIES Musculoskeletal/Extremeties: BRENDA, BRENDAN - NEURO Level of Consciousness: Awake, Alert - DERM Integumentary: Warm, Dry Course - Re-evaluation Re-evalutation: 11/05/17 11:45 No bleeding after nasal Rhino Rocket removal. Bacitracin applied to a erythematous area in the base of the right nostril. Patient feels better and blood pressure has improved baseline. Hemoglobin is her baseline. - Vital Signs Vital signs: Temp Pulse Resp BP Pulse Ox 99.0 F 94 18 83/62 L 93 11/05/17 07:20 11/05/17 07:20 11/05/17 07:20 11/05/17 07:20 11/05/17 07:20 - Laboratory Result Diagrams: 11/05/17 08:35 11/05/17 08:35 Discharge - Discharge Clinical Impression: Frequent nosebleeds Condition: Good Disposition: HOME, SELF-CARE Instructions: ENT, Nosebleed Instructions ([facility]) Additional Instructions: See ENT doctor about the frequent nosebleeds Do not sniff snort blow your nose for at least 2 days Return to the emergency room if nosebleeds recurs Referrals: BATOOL THOMAS PA-C [Primary Care Provider] - Follow up as needed
[2017-11-05] MEDS ORDERED: NORMAL SALINE 1000 ML 500 ML IV ONE (08:07)
[2017-11-05 08:54] LABS: ABSOLUTE EOSINOPHILS # (AUTO) 0.1 10^3/uL (0.0-0.6); ABSOLUTE LYMPHOCYTES (AUTO) 1.6 10^3/uL (0.5-4.7); ABSOLUTE MONOCYTES (AUTO) 0.2 10^3/uL (0.1-1.4); ABSOLUTE NEUT (AUTO) 3.8 10^3/uL (1.7-8.2); BASOPHILS % (AUTO) 0.7 % (0-2); EOSINOPHILS % (AUTO) 1.5 % (0-6); HEMATOCRIT 33.8 % (36.0-47.0); HEMOGLOBIN 10.7 g/dL (12.0-15.5); LYMPHOCYTES % (AUTO) 28.2 % (13-45); MEAN CORPUSCULAR HEMOGLOBIN 23.6 pg (27.0-33.4); MEAN CORPUSCULAR HGB CONC 31.7 g/dL (32.0-36.0); MEAN CORPUSCULAR VOLUME 75 fl (80-97); MONOCYTES % (AUTO) 3.6 % (3-13); PLATELET COUNT 289 10^3/uL (150-450); RED BLOOD COUNT 4.54 10^6/uL (3.72-5.28); RED CELL DISTRIBUTION WIDTH 15.9 % (11.5-14.0); TOTAL CELLS COUNTED % (AUTO) 100 %; WHITE BLOOD COUNT 5.8 10^3/uL (4.0-10.5)
[2017-11-05 09:14] LABS: ALANINE AMINOTRANSFERASE 20 U/L (9-52); ALBUMIN 4.7 g/dL (3.5-5.0); ALKALINE PHOSPHATASE 68 U/L (38-126); ANION GAP 7 (5-19); ASPARTATE AMINO TRANSFERASE 24 U/L (14-36); BILIRUBIN,DIRECT 0.5 mg/dL (0.0-0.4); BILIRUBIN,TOTAL 0.5 mg/dL (0.2-1.3); BLOOD UREA NITROGEN 16 mg/dL (7-20); CARBON DIOXIDE 35 mmol/L (22-30); CHLORIDE 102 mmol/L (98-107); GLUCOSE 81 mg/dL (75-110); POTASSIUM 4.1 mmol/L (3.6-5.0); SODIUM 143.9 mmol/L (137-145); TOTAL PROTEIN 9.2 g/dL (6.3-8.2)
[2017-11-05 12:33] VITALS: BP 97/66
== END 2017-11-05 12:33 | disposition home or self-care (01) ==
LOC: ER 07:07
DX: Z48.00 Encounter for change or removal of nonsurgical wound dressing (principal); R04.0 Epistaxis; R42 Dizziness and giddiness; J44.9 Chronic obstructive pulmonary disease, unspecified; Z79.02 Long term (current) use of antithrombotics/antiplatelets; Z79.891 Long term (current) use of opiate analgesic
CPT/HCPCS: 99283; 36415; 85025; 80053; J7030

== ENCOUNTER 2017-12-13 11:25 | Emergency (ER) | payer MEDICARE, MEDICAID ==
[2017-12-13 11:33] VITALS: BP 125/82
--- NOTE | 2017-12-13 11:54 | ER Document Report ---
HPI - HPI Pain Level: 5 Notes: Patient is a 67-year-old female with a history of recurrent nosebleeds that she is on Aggrenox status post CVA who presents to the ED complaining of a mild nosebleed just prior to arrival. Patient states that there is no heavy bleeding. She is eating and drinking without difficulties. She is urinating normally and having normal bowel movements. Patient states that she otherwise feels well. Denies any drug allergies. No other concerns or complaints at this time. Patient states that she has been using her Afrin on occasion. She has not been seen by ENT as she lost the number. Denies any headache, fever, head injury, neck pain, changes in vision/speech/mentation/hearing, URI, sore throat, chest pain, palpitations, syncope, cough, shortness of breath, wheeze, dyspnea, abdominal pain, nausea/vomiting/diarrhea, urinary retention, dysuria, hematuria, or rash. - ROS Systems Reviewed and Negative: Yes All other systems reviewed and negative - CONSTITUTIONAL Constitutional: DENIES: Fever, Chills - NEURO Neurology: REPORTS: Headache - NOSE BLEED. DENIES: Weakness, Vision blurred, Dizzinesss / Vertigo - CARDIOVASCULAR Cardiovascular: DENIES: Chest pain - RESPIRATORY Respiratory: DENIES: Trouble Breathing, Coughing - GASTROINTESTINAL Gastrointestinal: DENIES: Abdominal Pain, Black / Bloody Stools - URINARY Urinary: DENIES: Dysuria, Urgency, Frequency - REPRODUCTIVE Reproductive: DENIES: : - MUSCULOSKELETAL Musculoskeletal: DENIES: Extremity pain Past Medical History - Social History Smoking Status: Current Every Day Smoker Chew tobacco use (# tins/day): No Frequency of alcohol use: None Drug Abuse: None Family History: Reviewed & Not Pertinent, Hypertension Patient has suicidal ideation: No Patient has homicidal ideation: No - Past Medical History Cardiac Medical History: Reports: Hx Hypercholesterolemia Denies: Hx Coronary Artery Disease, Hx Heart Attack, Hx Hypertension Pulmonary Medical History: Reports: Hx Bronchitis, Hx COPD, Hx Pneumonia - hx of Denies: Hx Asthma Neurological Medical History: Reports: Hx Cerebrovascular Accident - 3 prior strokes resulting in left-sided weakness., Hx Migraine. Denies: Hx Seizures Renal/ Medical History: Reports: Hx Kidney Stones. Denies: Hx Peritoneal Dialysis GI Medical History: Reports: Hx Gastroesophageal Reflux Disease, Hx Ulcer. Denies: Hx Hepatitis, Hx Hiatal Hernia Musculoskeltal Medical History: Reports Hx Arthritis - Back & legs Psychiatric Medical History: Reports: Hx Anxiety, Hx Depression, Hx Schizophrenia Infectious Medical History: Denies: Hx Hepatitis Past Surgical History: Reports: Hx Cholecystectomy, Hx Gynecologic Surgery - Pelvic abscess surgery, Hx Hysterectomy, Hx Orthopedic Surgery - Cervical fusion , Hx Tubal Ligation, Other - Cataract surgery. Denies: Hx Mastectomy, Hx Open Heart Surgery, Hx Pacemaker - Immunizations Immunizations up to date: Yes Hx Diphtheria, Pertussis, Tetanus Vaccination: No - unknown Hx Pneumococcal Vaccination: 08/12/09 Vertical Provider Document - CONSTITUTIONAL Agree With Documented VS: Yes Notes: PHYSICAL EXAMINATION: GENERAL: Well-appearing, well-nourished and in no acute distress. A&Ox4. Answers questions appropriately. Moves comfortably w/o notable distress HEAD: Atraumatic, normocephalic. EYES: Pupils equal round and reactive to light, extraocular movements intact, sclera anicteric, conjunctiva are normal. ENT: EAC clear b/l. TM's intact b/l without erythema, fluid, or perforation. Nares patent and with scant dried bloody discharge. There is no active bleeding noted. oropharynx mild erythema without exudates or blood noted. No tonsilar hypertrophy without erythema or exudate. No palatine shift. Uvula midline. No tongue protrusion. No drooling, hoarseness, or airway compromise. Moist mucous membranes. No sinus tenderness. NECK: Normal range of motion, supple without lymphadenopathy. No rigidity/ meningismus. LUNGS: Breath sounds clear to auscultation bilaterally and equal. No wheezes rales or rhonchi. HEART: Regular rate and rhythm without murmurs, rubs, gallops. PSYCH: Normal mood, normal affect. SKIN: Warm, Dry, normal turgor, no rashes or lesions noted. - INFECTION CONTROL TRAVEL OUTSIDE OF THE [place] IN LAST 30 DAYS: No Course - Re-evaluation Re-evalutation: 12/13/17 11:51 Patient is a 67-year-old female who presents to the ED with recurrence of her nosebleed as she is on Aggrenox. Vitals are acceptable. PE is otherwise unremarkable. Patient is hemodynamically stable without any signs or symptoms concerning for acute blood loss. She has no tachycardia, tachypnea, or hypoxia. There is no active bleeding on exam. There is a small noted abrasion which I believe is the source of her bleeding to the right lateral nare. No other labs or imaging warranted at this time based on H&P. Patient declined any packing as she does not like that in her nose and cannot tolerate it. Advised patient to continue Afrin and light packing on her own. She needs to call ENT today to schedule an appointment for further evaluation and management. Recheck with your PCM in 3-5 days as well. Return to the ED with any worsening/concerning symptoms otherwise as reviewed discharge. Patient is in agreement. - Vital Signs Vital signs: Temp Pulse Resp BP Pulse Ox 98.7 F 86 15 125/82 100 12/13/17 11:31 12/13/17 11:31 12/13/17 11:31 12/13/17 11:31 12/13/17 11:31 Discharge - Discharge Clinical Impression: Nosebleed Condition: Stable Disposition: HOME, SELF-CARE Instructions: Nosebleed Instructions ([facility]) Additional Instructions: Maintain adequate fluid and food intake Monitor symptoms closely for any acute changes or uncontrollable nosebleeds and seek medical attention if so Monitor for any worsening symptoms Recheck with your PCM in 2-3 days Call ENT today to schedule an appointment for further evaluation and management Return to the ED with any worsening symptoms and/or development of fever, headache, chest pain, palpitations, syncope, shortness of breath, trouble breathing, abdominal pain, n/v/d, blood in stool/urine, weakness, or other worsening symptoms that are concerning to you. Forms: Smoking Cessation Education Referrals: KRISTIN ALVARADO DO [ASSOCIATE] - 12/16/17
== END 2017-12-13 11:59 | disposition home or self-care (01) ==
LOC: ER 11:25
DX: S00.31XA Abrasion of nose, initial encounter (principal); X58.XXXA Exposure to other specified factors, initial encounter; Z79.02 Long term (current) use of antithrombotics/antiplatelets; Z86.73 Personal history of transient ischemic attack (TIA), and cerebral infarction without residual deficits; R51 Headache; F17.200 Nicotine dependence, unspecified, uncomplicated
CPT/HCPCS: 99283

== ENCOUNTER 2017-12-30 09:05 | Emergency (ER) | payer MEDICARE, MEDICAID ==
--- NOTE | 2017-12-30 09:44 | ER Document Report ---
ED General - General Chief Complaint: Weakness Stated Complaint: RIGHT HAND WEAKNESS Time Seen by Provider: 12/30/17 09:25 Mode of Arrival: Medic Information source: Patient, Emergency Med Personnel, [facility] Records Notes: 67-year-old female with COPD, GERD, previous CVA 4 presents with complaint of left-sided weakness that started greater than 24 hours ago as well as right sided facial droop that started last week. Patient reports that her previous strokes did leave her with left-sided weakness that she now feels is worse. She is also currently complaining of a headache and diffuse body pain. She denies any recent falls, chest pain, shortness of breath. She denies any recent illnesses. Patient states her last stroke was in September 2017. TRAVEL OUTSIDE OF THE [place] IN LAST 30 DAYS: No - HPI Onset: Last week Onset/Duration: Gradual, Worse Quality of pain: Achy Severity: Mild Associated symptoms: Headache, Weakness Exacerbated by: Denies Relieved by: Denies Similar symptoms previously: Yes Recently seen / treated by doctor: Yes - Related Data Allergies/Adverse Reactions: No Known Allergies Allergy (Verified 12/30/17 09:19) Past Medical History - General Information source: Patient, Emergency Med Personnel, [facility] Records - Social History Smoking Status: Former Smoker Chew tobacco use (# tins/day): No Drug Abuse: None Lives with: Family Family History: Reviewed & Not Pertinent, Hypertension Patient has suicidal ideation: No Patient has homicidal ideation: No - Past Medical History Cardiac Medical History: Reports: Hx Hypercholesterolemia Denies: Hx Coronary Artery Disease, Hx Heart Attack, Hx Hypertension Pulmonary Medical History: Reports: Hx Bronchitis, Hx COPD, Hx Pneumonia - hx of Denies: Hx Asthma Neurological Medical History: Reports: Hx Cerebrovascular Accident - 3 prior strokes resulting in left-sided weakness., Hx Migraine. Denies: Hx Seizures Renal/ Medical History: Reports: Hx Kidney Stones. Denies: Hx Peritoneal Dialysis GI Medical History: Reports: Hx Gastroesophageal Reflux Disease, Hx Ulcer. Denies: Hx Hepatitis, Hx Hiatal Hernia Musculoskeltal Medical History: Reports Hx Arthritis - Back & legs Psychiatric Medical History: Reports: Hx Anxiety, Hx Depression, Hx Schizophrenia Infectious Medical History: Denies: Hx Hepatitis Past Surgical History: Reports: Hx Cholecystectomy, Hx Gynecologic Surgery - Pelvic abscess surgery, Hx Hysterectomy, Hx Orthopedic Surgery - Cervical fusion , Hx Tubal Ligation, Other - Cataract surgery. Denies: Hx Mastectomy, Hx Open Heart Surgery, Hx Pacemaker - Immunizations Immunizations up to date: Yes Hx Diphtheria, Pertussis, Tetanus Vaccination: No - unknown Hx Pneumococcal Vaccination: 08/12/09 Review of Systems - Review of Systems Constitutional: Weakness. denies: Fever EENT: denies: Blurred vision, Difficulty swallowing Cardiovascular: denies: Chest pain, Palpitations, Dizziness Respiratory: denies: Short of breath Gastrointestinal: denies: Abdominal pain Genitourinary: denies: Dysuria Female Genitourinary: No symptoms reported Musculoskeletal: Muscle pain Skin: No symptoms reported Hematologic/Lymphatic: denies: Easy bleeding Neurological/Psychological: Weakness. denies: Confusion -: Yes All other systems reviewed and negative Physical Exam - Vital signs Vitals: Temp Pulse Resp BP Pulse Ox 98.9 F 106 H 15 121/78 93 12/30/17 09:11 12/30/17 09:11 12/30/17 09:11 12/30/17 09:11 12/30/17 09:11 Interpretation: Normal, Tachycardic - Notes Notes: PHYSICAL EXAMINATION: GENERAL: Well-appearing, well-nourished and in no acute distress. HEAD: Atraumatic, normocephalic. EYES: Pupils equal round and reactive to light, extraocular movements intact, conjunctiva are normal. ENT: Nares patent, oropharynx clear without exudates. Moist mucous membranes. NECK: Normal range of motion, supple without lymphadenopathy LUNGS: Breath sounds clear to auscultation bilaterally and equal. No wheezes rales or rhonchi. HEART: Regular rate and rhythm without murmurs ABDOMEN: Soft, nontender, nondistended abdomen. No guarding, no rebound. No masses appreciated. Female : deferred Musculoskeletal: Normal range of motion, no pitting or edema. No cyanosis. NEUROLOGICAL: GCS 15, right-sided facial droop, NIH 2 for slurred speech, facial droop. PSYCH: Normal mood, normal affect. SKIN: Warm, Dry, normal turgor, no rashes or lesions noted. Course - Re-evaluation Re-evalutation: Laboratory 12/30/17 12/30/17 12/30/17 10:10 10:10 10:10 WBC 5.6 RBC 4.37 Hgb 10.3 L Hct 32.5 L MCV 75 L MCH 23.5 L MCHC 31.6 L RDW 16.0 H Plt Count 273 Seg Neutrophils % 59.4 Lymphocytes % 30.1 Monocytes % 6.3 Eosinophils % 3.9 Basophils % 0.3 Absolute Neutrophils 3.3 Absolute Lymphocytes 1.7 Absolute Monocytes 0.4 Absolute Eosinophils 0.2 Absolute Basophils 0.0 PT 11.8 INR 0.83 APTT 29.2 Sodium 144.2 Potassium 4.1 Chloride 101 Carbon Dioxide 35 H Anion Gap 8 BUN 15 Creatinine 0.89 Est GFR ( Amer) > 60 Est GFR (Non-Af Amer) > 60 Glucose 78 Calcium 9.5 Total Bilirubin 0.2 Direct Bilirubin 0.2 Neonat Total Bilirubin Not Reportable Neonat Direct Bilirubin Not Reportable Neonat Indirect Bili Not Reportable AST 18 ALT 14 Alkaline Phosphatase 59 Creatine Kinase 101 CK-MB (CK-2) Troponin I Total Protein 7.1 Albumin 3.9 12/30/17 10:10 WBC RBC Hgb Hct MCV MCH MCHC RDW Plt Count Seg Neutrophils % Lymphocytes % Monocytes % Eosinophils % Basophils % Absolute Neutrophils Absolute Lymphocytes Absolute Monocytes Absolute Eosinophils Absolute Basophils PT INR APTT Sodium Potassium Chloride Carbon Dioxide Anion Gap BUN Creatinine Est GFR ( Amer) Est GFR (Non-Af Amer) Glucose Calcium Total Bilirubin Direct Bilirubin Neonat Total Bilirubin Neonat Direct Bilirubin Neonat Indirect Bili AST ALT Alkaline Phosphatase Creatine Kinase CK-MB (CK-2) 1.45 Troponin I < 0.012 Total Protein Albumin Head CT 12/30/17 00:00 IMPRESSION: MILD CHRONIC CHANGES OF ATROPHY AND MICROVASCULAR ISCHEMIA. NO ACUTE PROCESS. EVIDENCE OF ACUTE STROKE: NO. Chest X-Ray 12/30/17 09:40 IMPRESSION: NO ACUTE RADIOGRAPHIC FINDING IN THE CHEST. Head MRI 12/30/17 10:20 IMPRESSION: NORMAL MRI OF THE BRAIN WITHOUT INTRAVENOUS GADOLINIUM CONTRAST. EVIDENCE OF ACUTE STROKE: NO. 67-year-old female with COPD, GERD, previous CVA 4 presents with complaint of left-sided weakness that started greater than 24 hours ago as well as right sided facial droop that started last week. Patient reports that her previous strokes did leave her with left-sided weakness that she now feels is worse. She is also currently complaining of a headache and diffuse body pain. She denies any recent falls, chest pain, shortness of breath. She denies any recent illnesses. Patient states her last stroke was in September 2017. NIH performed and 2 for slurred speech and facial droop. Vital signs stable upon arrival. EKG was obtained and showed the patient to be in normal sinus rhythm and with significant left ventricular hypertrophy. Patient without any significant laboratory findings. MRI showed no acute evidence of stroke. 12/30/17 13:09 Patient's primary care provider contacted. 12/30/17 13:20 I spoke to the patient's primary care provider beth Camp at phone #[phone] [facility] who states that the patient has a baseline facial droop ,and is noncompliant with her medications. She did state that she will have the patient come into the office within the next few days and refer her back to neuro care. I did discuss this with the patient who is comfortable with discharge home. Patient provided the opportunity to ask questions, and express concerns. Discharge instructions discussed. Patient is agreeable with discharge home. Return indications explained and discussed with the patient who displays understanding. Patient encouraged to return to the emergency department immediately with any concerns. 12/31/17 09:43 12/31/17 09:44 - Vital Signs Vital signs: Temp Pulse Resp BP Pulse Ox 98.9 F 85 20 117/91 H 97 12/30/17 09:11 12/30/17 09:20 12/30/17 13:24 12/30/17 13:21 12/30/17 13:24 - Laboratory Result Diagrams: 12/30/17 10:10 12/30/17 10:10 Laboratory results interpreted by me: 12/30/17 12/30/17 10:10 10:10 Hgb 10.3 L Hct 32.5 L MCV 75 L MCH 23.5 L MCHC 31.6 L RDW 16.0 H Carbon Dioxide 35 H - Diagnostic Test Radiology reviewed: Image reviewed, Reports reviewed Discharge - Discharge Clinical Impression: Weakness, Facial droop as late effect of cerebrovascular accident (CVA), History of stroke Condition: Good Disposition: HOME, SELF-CARE Instructions: Transient Ischemic Attack ([facility]), Weakness ([facility]) Additional Instructions: I spoke to your primary care provider beth Camp who will arrange to see you in the office in the next 1-2 days. Also you are to follow-up with neurology at phone number [phone]. Please return to the emergency department if you experience any worsening weakness. Referrals: BETH CAMP, LASHAE-C [Primary Care Provider] - Follow up in 3-5 days ED NIH Stroke Scale - NIH Stroke Scale When completed:: Before Alteplase *: 1. NIH scale should be completed with appropriate accompanying assessment tools. *: 2. The NIH should reflect what the patient is capable of doing and should not be coached by the clinician. 1a. Level of Consciousness: 0=Alert;keenly responsive -: 1=Drowsy -: 2=Obtunded -: 3=Coma/unresponsive or reflex to noxious stimuli. 1a. Responses: 0 1b. Orientation Questions: a. What month is it? -: b. How old are you? -: 0=Answers both questions correctly. -: 1=Answers one question correctly or patient is intubated or has orotracheal trauma. -: 2=Answers neither question correctly. 1b. Responses: 0 1c. Response to commands: a. Open and close eyes? -: b. Lead Mechanical Engineer and release hand? -: Credit is given despite weakness. Demonstration of task is permitted. Substitute command if hands cannot be used. -: 0=Performs both tasks correctly -: 1=Performs one task correctly -: 2=Performs neither task correctly 1c. Responses: 0 2. Gaze: Establish eye contact and instruct patient to "Follow my finger" -: 0=Normal -: 1=Partial gaze palsy. Gaze is abnormal in one or both eyes, but where forced deviation or total gaze paresis is not present. -: 2=Forced deviation or total gaze paresis. 2. Responses: 0 3. Visual Jarquin: Sees fingers in all four quadrants. -: 0=No visual loss. -: 1=Partial hemianopsia. -: 2=Complete hemianopsia. -: 3=Bilateral hemianopsia (including Cortical blindness) 3. Responses: 0 4. Facial Movement: Instruct patient to: -: a. Show me your teeth -: b. Raise your eyebrows -: c. Close your eyes -: d. Smile -: 0=Normal symmetrical movement -: 1=Minor paralysis (flattened nasolabial fold, asymmetry on smiling). -: 2=Partial paralysis (total or near total paralysis of lower face). -: 3=Complete paralysis of upper and lower face 4. Responses: 1 5. Motor functions (left arm): Alternate sides and extend each arm with palms down (90 degrees if sitting or 45 degrees for supine). -: 0=No drift;limb holds for full 10 seconds. -: 1=Drift; limb holds but drifts down before full 10 seconds, but does not hit bed. -: 2=Some effort against gravity; limb cannot get to or maintain position. -: 3=No effort against gravity; limb falls. -: 4=No movement. -: UN=Amputation, joint fusion, explain in comments. 5. Responses (left arm): 0 5. Motor Functions (right arm): Alternate sides and extend each arm with palms down (90 degrees if sitting or 45 degrees for supine). -: 0=No drift;limb holds for full 10 seconds. -: 1=Drift; limb holds but drifts down before full 10 seconds, but does not hit bed. -: 2=Some effort against gravity; limb cannot get to or maintain position. -: 3=No effort against gravity; limb falls. -: 4=No movement. -: UN=Amputation, joint fusion, explain in comments. 5. Responses (right arm): 0 6. Motor Functions (left leg): With patient lying supine, alternate sides and extend each leg (30 degrees always while supine). -: 0=No drift, leg holds position for full 5 seconds -: 1=Drift; leg falls before full 5 seconds but does not hit bed. -: 2=Some effort against gravity, leg falls to bed but some effort against gravity. -: 3=No effort against gravity, leg falls to bed immediately. -: 4=No movement. -: UN=Amputation, joint fusion; explain in comments. 6. Responses (left leg): 0 6. Motor Functions (right leg): With patient lying supine, alternate sides and extend each leg (30 degrees always while supine). -: 0=No drift, leg holds position for full 5 seconds -: 1=Drift; leg falls before full 5 seconds but does not hit bed. -: 2=Some effort against gravity, leg falls to bed but some effort against gravity. -: 3=No effort against gravity, leg falls to bed immediately. -: 4=No movement. -: UN=Amputation, joint fusion; explain in comments. 6. Responses (right leg): 0 7. Limb Ataxia: With eyes open instruct patient to: -: a. "Touch your finger to your nose". -: b. "Touch your heel to your hoover" -: 0=Absent -: 1=Present in one limb. -: 2=Present in two limbs. -: UN=Amputation or joint fusion; explain in comments. 7. Responses: 0 8. Sensory: Test sensation using pinprick or noxious stimuli. Test as many body parts as possible. -: 0=Normal;no sensory loss -: 1=Mile to moderate sensory loss (patient feels pin prick but is less sharp on affected side). -: 2=Severe or total sensory loss. 8. Responses: 0 9. Best Language: Instruct patient to: -: a. "Describe what you see in this picture." -: b. "Name the items in this picture." -: c. "Read these sentences." -: 0=No aphasia, normal -: 1=Mild to moderate aphasia. -: 2=Severe aphasia -: 3=Mute, global aphasia, no usable speech or auditory comprehension. 9. Responses: 0 10. Articulation, Dysarthia: Instruct patient to: -: "Read these words" or "Repeat these words" -: 0=Normal -: 1=Mild to moderate; patient may slur some words but can be understood without difficulty. -: 2=Severe; patients speech so slurred as to be unintelligible in the absence of dysphasia. -: UN=Intubated or other physical barrier, explain in comments. 10. Responses: 1 11. Extinction or inattention: 0=No abnormality -: 1= Visual, tactile, auditory, spatial, or personal inattention or extinction to bilateral simulation in one or the sensory modalities. -: 2=Profound lis-inattention or lis-inattention to more than one modality; does not recognize own hand. 11. Responses: 0 Total Score: 2
--- NOTE | 2017-12-30 10:08 | RADIOLOGY REPORT (SQ) ---
EXAM DESCRIPTION: CT HEAD WITHOUT COMPLETED DATE/TIME: 12/30/2017 9:51 am REASON FOR STUDY: Stroke Protocol COMPARISON: None. TECHNIQUE: Axial images acquired through the brain without intravenous contrast. Images reviewed wi th bone, brain and subdural windows. Additional sagittal and coronal reconstructions were generated. Images stored on PACS. All CT scanners at this facility use dose modulation, iterative reconstruction, and/or weight based d osing when appropriate to reduce radiation dose to as low as reasonably achievable (ALARA). [facility]: Dose Right [facility]: CareDose [facility]: Dose Right [facility]: Teradose 4D [facility]: [employer] RADIATION DOSE: CT Rad equipment meets quality standard of care and radiation dose reduction techniq ues were employed. CTDIvol: 53.2 mGy. DLP: 1044 mGy-cm. mGy. LIMITATIONS: None. FINDINGS: VENTRICLES: Prominent. CEREBRUM: No masses. No hemorrhage. No midline shift. Areas of low density in the white matter mos t likely due to chronic micro-vascular ischemic change. No evidence for acute infarction. CEREBELLUM: No masses. No hemorrhage. No alteration of density. No evidence for acute infarction. EXTRAAXIAL SPACES: Mild age-related involutional change. No fluid collections. No masses. ORBITS AND GLOBE: No intra- or extraconal masses. Normal contour of globe without masses. CALVARIUM: No fracture. PARANASAL SINUSES: No fluid or mucosal thickening. SOFT TISSUES: No mass or hematoma. OTHER: No other significant finding. IMPRESSION: MILD CHRONIC CHANGES OF ATROPHY AND MICROVASCULAR ISCHEMIA. NO ACUTE PROCESS. EVIDENCE OF ACUTE STROKE: NO. COMMENT: Pertinent positive or negative findings of the imaging study reported as a CRITICAL EXAM brittani ROTH DO at10:03 on 12/30/2017. Category of Critical Exam: Stroke alert. TECHNICAL DOCUMENTATION: JOB ID: [id number] Quality ID # [id number]: Final reports with documentation of one or more dose reduction techniques (e.g., Au tomated exposure control, adjustment of the mA and/or kV according to patient size, use of iterative reconstruction technique) 2010 [employer]- All Rights Reserved Reading location - IP/workstation name: [email or web address]
--- NOTE | 2017-12-30 10:10 | RADIOLOGY REPORT (SQ) ---
EXAM DESCRIPTION: CHEST 2 VIEWS COMPLETED DATE/TIME: 12/30/2017 9:56 am REASON FOR STUDY: weakness COMPARISON: 02/10/2016 EXAM PARAMETERS: NUMBER OF VIEWS: two views TECHNIQUE: Digital Frontal and Lateral radiographic views of the chest acquired. RADIATION DOSE: NA LIMITATIONS: none FINDINGS: LUNGS AND PLEURA: No opacities, masses or pneumothorax. No pleural effusion. MEDIASTINUM AND HILAR STRUCTURES: No masses or contour abnormalities. HEART AND VASCULAR STRUCTURES: Heart normal size. No evidence for failure. BONES: No acute findings. HARDWARE: None in the chest. OTHER: No other significant finding. IMPRESSION: NO ACUTE RADIOGRAPHIC FINDING IN THE CHEST. TECHNICAL DOCUMENTATION: JOB ID: [id number] [employer]- All Rights Reserved Reading location - IP/workstation name: [email or web address]
[2017-12-30 10:36] LABS: ABSOLUTE EOSINOPHILS # (AUTO) 0.2 10^3/uL (0.0-0.6); ABSOLUTE LYMPHOCYTES (AUTO) 1.7 10^3/uL (0.5-4.7); ABSOLUTE MONOCYTES (AUTO) 0.4 10^3/uL (0.1-1.4); ABSOLUTE NEUT (AUTO) 3.3 10^3/uL (1.7-8.2); BASOPHILS % (AUTO) 0.3 % (0-2); EOSINOPHILS % (AUTO) 3.9 % (0-6); HEMATOCRIT 32.5 % (36.0-47.0); HEMOGLOBIN 10.3 g/dL (12.0-15.5); LYMPHOCYTES % (AUTO) 30.1 % (13-45); MEAN CORPUSCULAR HEMOGLOBIN 23.5 pg (27.0-33.4); MEAN CORPUSCULAR HGB CONC 31.6 g/dL (32.0-36.0); MEAN CORPUSCULAR VOLUME 75 fl (80-97); MONOCYTES % (AUTO) 6.3 % (3-13); PLATELET COUNT 273 10^3/uL (150-450); RED BLOOD COUNT 4.37 10^6/uL (3.72-5.28); SEGMENTED NEUTROPHILS % (AUTO) 59.4 % (42-78); TOTAL CELLS COUNTED % (AUTO) 100 %; WHITE BLOOD COUNT 5.6 10^3/uL (4.0-10.5)
[2017-12-30 10:45] LABS: INTERNATIONAL RATION (INR) 0.83; PROTHROMBIN TIME 11.8 SEC (11.4-15.4)
[2017-12-30 10:46] LABS: PARTIAL THROMBOPLASTIN TIME 29.2 SEC (23.5-35.8)
[2017-12-30 10:59] LABS: ALANINE AMINOTRANSFERASE 14 U/L (9-52); ALBUMIN 3.9 g/dL (3.5-5.0); ALKALINE PHOSPHATASE 59 U/L (38-126); ANION GAP 8 (5-19); ASPARTATE AMINO TRANSFERASE 18 U/L (14-36); BILIRUBIN,DIRECT 0.2 mg/dL (0.0-0.4); BILIRUBIN,TOTAL 0.2 mg/dL (0.2-1.3); BLOOD UREA NITROGEN 15 mg/dL (7-20); CALCIUM 9.5 mg/dL (8.4-10.2); CARBON DIOXIDE 35 mmol/L (22-30); CHLORIDE 101 mmol/L (98-107); CREATINE KINASE 101 U/L (30-135); GLUCOSE 78 mg/dL (75-110); POTASSIUM 4.1 mmol/L (3.6-5.0); SODIUM 144.2 mmol/L (137-145); TOTAL PROTEIN 7.1 g/dL (6.3-8.2)
[2017-12-30 11:13] LABS: CREATINE KINASE MB 1.45 ng/mL (<4.55)
[2017-12-30 11:14] LABS: TROPONIN I < 0.012 ng/mL
--- NOTE | 2017-12-30 12:28 | RADIOLOGY REPORT (SQ) ---
EXAM DESCRIPTION: MRI HEAD WITHOUT COMPLETED DATE/TIME: 12/30/2017 12:03 pm REASON FOR STUDY: stroke sx's COMPARISON: MRI brain 06/21/2016, 09/05/2016 CT brain 10/09/2017, 12/30/2017 TECHNIQUE: Multiplanar imaging includes non-contrasted T1, T2, FLAIR, and diffusion with ADC map seq uences. Images stored on PACS. LIMITATIONS: None. FINDINGS: ANATOMY: No significant developmental anomalies. Normal vascular flow voids. Pituitary fos sa normal. CSF SPACES: Normal in size and contour. No hemorrhage. CEREBRUM: Sulci and gyri normal in size and contour. Normal white matter signal on FLAIR imaging. No evidence of hemorrhage, mass, or extraaxial fluid collection. POSTERIOR FOSSA: No signal alteration. No hemorrhage. No edema, masses or mass effect. Internal shelby tory canals, cerebello-pontine angles, mastoids normal. DIFFUSION IMAGING: Negative for acute or sub-acute infarction. ORBITS: Post cataract surgery PARANASAL SINUSES: No fluid levels. Mucosa normal. OTHER: Advanced degenerative disc changes at C3-4, on sagittal midline T1 image 13. IMPRESSION: NORMAL MRI OF THE BRAIN WITHOUT INTRAVENOUS GADOLINIUM CONTRAST. EVIDENCE OF ACUTE STROKE: NO. TECHNICAL DOCUMENTATION: JOB ID: [id number] [employer]- All Rights Reserved Reading location - IP/workstation name: [email or web address]
--- NOTE | 2017-12-30 13:01 | EKG REPORT ---
SEVERITY:- ABNORMAL ECG - SINUS RHYTHM LEFT VENTRICULAR HYPERTROPHY : Confirmed by: Hector Freeman MD 30-Dec-2017 13:00:57
[2017-12-30 13:32] VITALS: BP 117/91
== END 2017-12-30 13:33 | disposition home or self-care (01) ==
LOC: ER 09:05
DX: I69.392 Facial weakness following cerebral infarction (principal); I69.354 Hemiplegia and hemiparesis following cerebral infarction affecting left non-dominant side; Z91.14 Patient's other noncompliance with medication regimen; J44.9 Chronic obstructive pulmonary disease, unspecified; R51 Headache; Z87.891 Personal history of nicotine dependence; M79.1 Myalgia; I51.7 Cardiomegaly
CPT/HCPCS: 36415; 70450; 70551; 71046; 80053; 82550; 82553; 84484; 85025; 85610; 85730; 93005; 93010; 99285

== ENCOUNTER → 2018-01-07 | Outpatient (CLI) | payer MEDICARE, MEDICAID ==
--- NOTE | 2018-01-07 10:21 | WOMENS IMAGING REPORT ---
EXAM DESCRIPTION: BONE DENSITY HIP/SPINE COMPLETED DATE/TIME: 01/07/2018 9:38 am REASON FOR STUDY: UNSPECIFIED BONE DISORDER; M89.9 M89.9 DISORDER OF BONE, UNSPECIFIED COMPARISON: Sacrum and coccyx films 09/13/2010 Left hip films 11/01/2017 TECHNIQUE: Dual-Energy X-ray Absorptiometry (DEXA) of the AP Spine and Hip. LIMITATIONS: None. FINDINGS: LUMBAR SPINE: The bone mineral density (BMD) measured from L1-L4 in the AP projection correlates with a T-score of -2.9, which is osteoporotic as defined by the World Health Organization. HIP: The bone mineral density (BMD) measured in the left femoral neck at the hip correlates with a T-score of -2.0, which is osteopenic as defined by the World Health Organization. IMPRESSION: 1. LUMBAR SPINE: Osteoporotic 2. HIP: Osteopenic COMMENT: The World Health Organization defines low BMD as follows: T-score: Normal: Greater than -1.0 Osteopenia: Between -1.0 and -2.5 Osteoporosis: Less than -2.5 without fractures Established osteoporosis: Less than -2.5 with fractures In general, you may wish to consider: Diagnosis Treatment Follow-up DEXA Normal BMD Prevention 2-3 years Osteopenia Prevention/Therapy 1-2 years Osteoporosis Therapy Yearly TECHNICAL DOCUMENTATION: JOB ID: [id number]- All Rights Reserved Reading location - IP/workstation name: [email or web address]
== END ==
LOC: WI 09:07
PROVIDERS: ATTEND Nurse Practitioner Family
DX: M89.9 Disorder of bone, unspecified (principal)
CPT/HCPCS: 77080

== ENCOUNTER → 2018-02-03 | Outpatient (CLI) | payer MEDICARE, MEDICAID ==
--- NOTE | 2018-02-03 14:06 | RADIOLOGY REPORT (SQ) ---
EXAM DESCRIPTION: CHEST PA/LATERAL COMPLETED DATE/TIME: 02/03/2018 1:24 pm REASON FOR STUDY: OTHER CHEST PAIN COMPARISON: 12/30/2017 EXAM PARAMETERS: NUMBER OF VIEWS: two views TECHNIQUE: Digital Frontal and Lateral radiographic views of the chest acquired. RADIATION DOSE: NA LIMITATIONS: none FINDINGS: LUNGS AND PLEURA: New parenchymal opacity at the left lung base. Right lung is clear. MEDIASTINUM AND HILAR STRUCTURES: No masses or contour abnormalities. HEART AND VASCULAR STRUCTURES: Heart normal size. No evidence for failure. BONES: Multiple rib fractures. HARDWARE: None in the chest. OTHER: No other significant finding. IMPRESSION: New parenchymal opacity at the left base likely pneumonia. TECHNICAL DOCUMENTATION: JOB ID: [id number] [employer]- All Rights Reserved Reading location - IP/workstation name: [email or web address]
== END ==
LOC: RAD 13:12
PROVIDERS: ATTEND Nurse Practitioner Acute Care
DX: R07.89 Other chest pain (principal)
CPT/HCPCS: 71046

== ENCOUNTER 2018-02-06 10:17 | Observation (INO) | payer MEDICARE, MEDICAID ==
[2018-02-06] MEDS ORDERED: ASPIRIN 81 MG TABLET, CHEWABLE PO ONE (11:05)
--- NOTE | 2018-02-06 11:08 | ER Document Report ---
ED Medical Screen (RME) - General Chief Complaint: Chest Pain > 30 Stated Complaint: CHEST PAIN Time Seen by Provider: 02/06/18 11:00 Notes: RAPID MEDICAL EVALUATION DISCLOSURE I have seen this patient as part of a Rapid Medical Evaluation and, if applicable, placed any initially appropriate orders. The patient will be seen and fully evaluated, including a full history and physical exam, by a provider ( in Main ED or Fast Track) when a room becomes available. 68-year-old female here with complaints of midsternal chest pain radiating to the left with diaphoresis ongoing for the past 1 week. The symptoms have been constant. She has not had any lightheadedness shortness of breath nausea vomiting. The symptoms are not worse with exertion or breathing. Her doctor saw her for this several days ago and put her on antibiotics, of which she does not know the name, and she is not feeling any better after being on it for 2 days. She denies any cough congestion runny nose fevers chills. Denies prior history of ME hypertension diabetes hyperlipidemia PE DVT. EXAM CTAB RRR TRAVEL OUTSIDE OF THE [place] IN LAST 30 DAYS: No - Related Data Allergies/Adverse Reactions: No Known Allergies Allergy (Verified 02/06/18 10:20) Past Medical History - Social History Chew tobacco use (# tins/day): No Frequency of alcohol use: None Drug Abuse: None - Past Medical History Cardiac Medical History: Reports: Hx Hypercholesterolemia Denies: Hx Coronary Artery Disease, Hx Heart Attack, Hx Hypertension Pulmonary Medical History: Reports: Hx Bronchitis, Hx COPD, Hx Pneumonia - hx of Denies: Hx Asthma Neurological Medical History: Reports: Hx Cerebrovascular Accident - 3 prior strokes resulting in left-sided weakness., Hx Migraine. Denies: Hx Seizures Renal/ Medical History: Reports: Hx Kidney Stones. Denies: Hx Peritoneal Dialysis GI Medical History: Reports: Hx Gastroesophageal Reflux Disease, Hx Ulcer. Denies: Hx Hepatitis, Hx Hiatal Hernia Musculoskeltal Medical History: Reports Hx Arthritis - Back & legs Psychiatric Medical History: Reports: Hx Anxiety, Hx Depression, Hx Schizophrenia Infectious Medical History: Denies: Hx Hepatitis Past Surgical History: Reports: Hx Cholecystectomy, Hx Gynecologic Surgery - Pelvic abscess surgery, Hx Hysterectomy, Hx Orthopedic Surgery - Cervical fusion , Hx Tubal Ligation, Other - Cataract surgery. Denies: Hx Mastectomy, Hx Open Heart Surgery, Hx Pacemaker - Immunizations Immunizations up to date: Yes Hx Diphtheria, Pertussis, Tetanus Vaccination: No - unknown Physical Exam - Vital signs Vitals: Temp Pulse Resp BP Pulse Ox 98.8 F 95 20 121/77 96 02/06/18 10:35 02/06/18 10:35 02/06/18 10:35 02/06/18 10:35 02/06/18 10:35 Course - Vital Signs Vital signs: Temp Pulse Resp BP Pulse Ox 98.8 F 95 20 121/77 96 02/06/18 10:35 02/06/18 10:35 02/06/18 10:35 02/06/18 10:35 02/06/18 10:35 Doctor's Discharge - Discharge Referrals: DARÍO FORMAN NP [Primary Care Provider] - Follow up as needed
[2018-02-06 11:46] LABS: ABSOLUTE EOSINOPHILS # (AUTO) 0.1 10^3/uL (0.0-0.6); ABSOLUTE LYMPHOCYTES (AUTO) 1.4 10^3/uL (0.5-4.7); ABSOLUTE MONOCYTES (AUTO) 0.2 10^3/uL (0.1-1.4); ABSOLUTE NEUT (AUTO) 2.4 10^3/uL (1.7-8.2); BASOPHILS % (AUTO) 0.6 % (0-2); EOSINOPHILS % (AUTO) 3.4 % (0-6); HEMATOCRIT 30.7 % (36.0-47.0); HEMOGLOBIN 9.7 g/dL (12.0-15.5); LYMPHOCYTES % (AUTO) 32.8 % (13-45); MEAN CORPUSCULAR HEMOGLOBIN 23.4 pg (27.0-33.4); MEAN CORPUSCULAR HGB CONC 31.5 g/dL (32.0-36.0); MEAN CORPUSCULAR VOLUME 74 fl (80-97); MONOCYTES % (AUTO) 5.9 % (3-13); PLATELET COUNT 218 10^3/uL (150-450); RED BLOOD COUNT 4.13 10^6/uL (3.72-5.28); RED CELL DISTRIBUTION WIDTH 16.1 % (11.5-14.0); SEGMENTED NEUTROPHILS % (AUTO) 57.3 % (42-78); TOTAL CELLS COUNTED % (AUTO) 100 %; WHITE BLOOD COUNT 4.2 10^3/uL (4.0-10.5)
--- NOTE | 2018-02-06 11:52 | RADIOLOGY REPORT (SQ) ---
EXAM DESCRIPTION: CHEST 2 VIEWS COMPLETED DATE/TIME: 02/06/2018 11:40 am REASON FOR STUDY: CP COMPARISON: 12/30/2017 EXAM PARAMETERS: NUMBER OF VIEWS: two views TECHNIQUE: Digital Frontal and Lateral radiographic views of the chest acquired. RADIATION DOSE: NA LIMITATIONS: none FINDINGS: LUNGS AND PLEURA: Linear densities are identified in the left lung base most consistent wi th atelectatic changes although I cannot exclude a minimal pneumonic infiltrate. Remaining lung fiel ds are clear. MEDIASTINUM AND HILAR STRUCTURES: No masses or contour abnormalities. HEART AND VASCULAR STRUCTURES: The configuration of the heart mediastinal structures is unchanged BONES: No acute findings. HARDWARE: None in the chest. OTHER: No other significant finding. IMPRESSION: Minimal left basilar densities as noted above. Remaining lung buitrago are clear. Other findings as noted above TECHNICAL DOCUMENTATION: JOB ID: [id number] [employer]- All Rights Reserved Reading location - IP/workstation name: [email or web address]
[2018-02-06 12:17] LABS: ALANINE AMINOTRANSFERASE 14 U/L (9-52); ALBUMIN 3.7 g/dL (3.5-5.0); ALKALINE PHOSPHATASE 56 U/L (38-126); ANION GAP 11 (5-19); ASPARTATE AMINO TRANSFERASE 14 U/L (14-36); BILIRUBIN,DIRECT 0.2 mg/dL (0.0-0.4); BILIRUBIN,TOTAL 0.2 mg/dL (0.2-1.3); BLOOD UREA NITROGEN 8 mg/dL (7-20); CARBON DIOXIDE 30 mmol/L (22-30); CHLORIDE 108 mmol/L (98-107); GLUCOSE 107 mg/dL (75-110); POTASSIUM 3.5 mmol/L (3.6-5.0); SODIUM 148.6 mmol/L (137-145); TOTAL PROTEIN 6.9 g/dL (6.3-8.2)
--- NOTE | 2018-02-06 13:44 | ER Document Report ---
ED General - General Mode of Arrival: Ambulatory Information source: Patient TRAVEL OUTSIDE OF THE [place] IN LAST 30 DAYS: No <MARILUZ JARRELL - Last Filed: 02/06/18 14:05> <KRISTIN JAIMES - Last Filed: 02/09/18 15:21> - General Chief Complaint: Chest Pain > 30 Stated Complaint: CHEST PAIN Time Seen by Provider: 02/06/18 11:00 Notes: Patient is a 68-year-old female that presents to the emergency today with complaints of chest pain of a one-week duration. Patient describes the pain as a dull pain, stating that it radiates underneath her left arm. Patient has had 6 TIAs in the past and was on blood thinners but she states she stopped taking the blood thinning medications due to frequent nosebleeds. Patient is unsure if she has ever had a stress test. Patient states her pain increases with exertion and arm movement. Patient denies any changes in her pain with breathing, shortness of breath, AK, or PE/DVT. (MARILUZ JARRELL) - Related Data Allergies/Adverse Reactions: No Known Allergies Allergy (Verified 02/06/18 10:20) Past Medical History - General Information source: Patient, [facility] Records - Social History Smoking Status: Never Smoker Cigarette use (# per day): No Chew tobacco use (# tins/day): No Frequency of alcohol use: None Drug Abuse: None Lives with: Family Family History: Reviewed & Not Pertinent, Hypertension Patient has suicidal ideation: No Patient has homicidal ideation: No - Past Medical History Cardiac Medical History: Reports: Hx Hypercholesterolemia Pulmonary Medical History: Reports: Hx Bronchitis, Hx COPD, Hx Pneumonia - hx of Neurological Medical History: Reports: Hx Cerebrovascular Accident - 3 prior strokes resulting in left-sided weakness., Hx Migraine Renal/ Medical History: Reports: Hx Kidney Stones GI Medical History: Reports: Hx Gastroesophageal Reflux Disease, Hx Ulcer Musculoskeltal Medical History: Reports Hx Arthritis - Back & legs Psychiatric Medical History: Reports: Hx Anxiety, Hx Depression, Hx Schizophrenia Past Surgical History: Reports: Hx Cholecystectomy, Hx Gynecologic Surgery - Pelvic abscess surgery, Hx Hysterectomy, Hx Orthopedic Surgery - Cervical fusion , Hx Tubal Ligation, Other - Cataract surgery - Immunizations Immunizations up to date: Yes Hx Diphtheria, Pertussis, Tetanus Vaccination: No - unknown Hx Pneumococcal Vaccination: 08/12/09 <MARILUZ JARRELL - Last Filed: 02/06/18 14:05> Review of Systems - Review of Systems Constitutional: No symptoms reported EENT: No symptoms reported Cardiovascular: See HPI, Chest pain - increases with arm movement and exertion Respiratory: denies: Short of breath Gastrointestinal: No symptoms reported Genitourinary: No symptoms reported Female Genitourinary: No symptoms reported Musculoskeletal: No symptoms reported Skin: No symptoms reported Hematologic/Lymphatic: No symptoms reported Neurological/Psychological: No symptoms reported -: Yes All other systems reviewed and negative <MARILUZ JARRELL - Last Filed: 02/06/18 14:05> Physical Exam <MARILUZ JARRELL - Last Filed: 02/06/18 14:05> <KRISTIN JAIMES - Last Filed: 02/09/18 15:21> - Vital signs Vitals: Temp Pulse Resp BP Pulse Ox 98.8 F 95 20 121/77 96 02/06/18 10:35 02/06/18 10:35 02/06/18 10:35 02/06/18 10:35 02/06/18 10:35 - Notes Notes: Physical Exam: General: Alert, appears well. HEENT: Normocephalic. Atraumatic. PERRL. Extraocular movements intact. Oropharynx clear. Neck: Supple. Non-tender. Respiratory: No respiratory distress. Clear and equal breath sounds bilaterally. Cardiovascular: Regular rate and rhythm. Abdominal: Normal Inspection. Non-tender. No distension. Normal Bowel Sounds. Back: Non-tender. No deformity or step off. Extremities: Moves all four extremities. Upper extremities: Normal inspection. Normal ROM. Lower extremities: Normal inspection. No edema. Normal ROM. Neurological: Normal cognition. AAOx4. Normal speech. Psychological: Normal affect. Normal Mood. Skin: Warm. Dry. Normal color. (MARILUZ JARRELL) Course - Laboratory Result Diagrams: 02/06/18 11:20 02/06/18 11:20 <MARILUZ JARRELL - Last Filed: 02/06/18 14:05> - Laboratory Result Diagrams: 02/06/18 11:20 02/06/18 11:20 - Diagnostic Test Radiology reviewed: Image reviewed - EKG Interpretation by Al EKG shows normal: Sinus rhythm Rate: Normal Rhythm: NSR <KRISTIN JAIMES - Last Filed: 02/09/18 15:21> - Re-evaluation Re-evalutation: 02/06/18 13:57 initial workup negative, admit for CP r/o (KRISTIN JAIMES) - Vital Signs Vital signs: Temp Pulse Resp BP Pulse Ox 99.1 F 98 17 131/65 H 96 02/07/18 18:32 02/07/18 18:32 02/07/18 18:32 02/07/18 18:32 02/07/18 18:32 - Laboratory Laboratory results interpreted by me: 02/06/18 02/06/18 11:20 11:20 Hgb 9.7 L Hct 30.7 L MCV 74 L MCH 23.4 L MCHC 31.5 L RDW 16.1 H Sodium 148.6 H Potassium 3.5 L Chloride 108 H Discharge <MARILUZ JARRELL - Last Filed: 02/06/18 14:05> - Discharge Admitting Provider: [facility] Unit Admitted: Telemetry <KRISTIN JAIMES - Last Filed: 02/09/18 15:21> - Discharge Clinical Impression: Chest pain Qualifiers: Chest pain type: other chest pain Qualified Code(s): R07.89 - Other chest pain Condition: Stable Disposition: ADMITTED OBSERVATION Scribe Attestation: 02/09/18 15:21 I personally performed the services described documentation, reviewed and edited the documentation which was dictated to describe my presence, and it accurately records my words and actions. (KRISTIN JAIMES) Scribe Documentation - Scribe Written by Scribe:: Patel Bae, 02/06/2018 1407 acting as scribe for :: Tato <MARILUZ JARRELL - Last Filed: 02/06/18 14:05>
[2018-02-06] MEDS ORDERED: PROMETHAZINE HCL 25 MG TABLET PO PRN (13:58)
[2018-02-06] MEDS ORDERED: OXYCODONE-ACETAMINOPHEN 5-325 MG TABLET PO PRN (13:58)
[2018-02-06] MEDS ORDERED: IPRATROPIUM/ALBUTEROL 0.5-2.5 MG/3 ML AMPUL NEB PRN (14:09)
--- NOTE | 2018-02-06 14:21 | PDOC H&P ---
History of Present Illness Admission Date/PCP: ALEXA SANCHEZ History of Present Illness: DIPESH BRAUN is a 68 year old black female patient with past medical history of hypertension, GERD, TIA, stroke, COPD, migraine and chronic macrocytic anemia presents with chief complaint of chest pain of one-week duration. She describes the chest pain as dull shooting to her underneath his left arm. This pain is aggravated by movement. She denies any chills, fever, cough, palpitation, diaphoresis, nausea, vomiting, abdominal pain, diarrhea or any urinary complaints. No dizziness, headache, blurry vision or any seizure activity. Her lab works are unremarkable. Past Medical History Cardiac Medical History: Reports: Hyperlipidema Denies: Coronary Artery Disease, Myocardial Infarction, Hypertension Pulmonary Medical History: Reports: Bronchitis, Chronic Obstructive Pulmonary Disease (COPD), Pneumonia - hx of Denies: Asthma Neurological Medical History: Reports: Migraine Denies: Seizures Renal/ Medical History: GI Medical History: Reports: Gastroesophageal Reflux Disease Denies: Hepatitis, Hiatal Hernia Musculoskeltal Medical History: Reports: Arthritis - Back & legs Psychiatric Medical History: Reports: Depression Hematology: Reports: Anemia - Thalassemia trait, Sickle Cell Disease, Bleeding Tendencies Past Surgical History Past Surgical History: Reports: Cholecystectomy, Hysterectomy, Orthopedic Surgery - Cervical fusion, Tubal Ligation, Other - Cataract surgery Denies: Amputation, Mastectomy, Pacemaker Social History Lives with: Family Smoking Status: Never Smoker Frequency of Alcohol Use: None Hx Recreational Drug Use: No Drugs: None Hx Prescription Drug Abuse: No - Advance Directive Resuscitation Status: Full Code Family History Family History: Reviewed & Not Pertinent, CVA, Hypertension Parental Family History Reviewed: Yes Children Family History Reviewed: Yes Sibling(s) Family History Reviewed.: Yes Medication/Allergy Home Medications: Aspirin/Dipyridamole [Aggrenox 25 mg-200 mg Capsule] 1 each PO DAILY 09/04/16 Buprenorphine [Butrans] 1 each TD MO@1000 09/04/16 Calcium Carb, Citrate/Vit D3 [Calcium + D3 ER Tablet] 1 each PO DAILY 09/04/16 Doxepin HCl 150 mg PO QHS 09/04/16 Esomeprazole Magnesium [Nexium 24Hr] 20 mg PO DAILY 09/04/16 Aspirin [Aspirin 81 mg Chewable Tablet] 81 mg PO DAILY tab.chew 09/05/16 Tramadol HCl [Ultram 50 mg Tablet] 50 mg PO Q8HP PRN #30 tablet 09/05/16 Cyclobenzaprine HCl [Flexeril 5 mg Tablet] 5 mg PO TID #15 tablet 07/28/17 Amoxicillin 500 mg PO TID 3 Days #9 capsule 11/02/17 Allergies/Adverse Reactions: No Known Allergies Allergy (Verified 02/06/18 10:20) Physical Exam Vital Signs: Temp Pulse Resp BP Pulse Ox 98.8 F 95 20 121/77 96 02/06/18 10:35 02/06/18 10:35 02/06/18 10:35 02/06/18 10:35 02/06/18 10:35 Intake & Output 02/05/18 02/06/18 02/07/18 06:59 06:59 06:59 Weight 62.2 kg General appearance: PRESENT: no acute distress Head exam: PRESENT: atraumatic, normocephalic Eye exam: PRESENT: conjunctiva pink Neck exam: ABSENT: carotid bruit, JVD, lymphadenopathy, thyromegaly Respiratory exam: PRESENT: clear to auscultation gerard. ABSENT: rales, rhonchi, wheezes Cardiovascular exam: PRESENT: RRR. ABSENT: diastolic murmur, rubs, systolic murmur Neurological exam: PRESENT: alert, awake, oriented to time, oriented to situation Results Laboratory Results: 02/06/18 11:20 02/06/18 11:20 02/06/18 02/06/18 02/06/18 11:20 11:20 11:20 WBC 4.2 RBC 4.13 Hgb 9.7 L Hct 30.7 L MCV 74 L MCH 23.4 L MCHC 31.5 L RDW 16.1 H Plt Count 218 Seg Neutrophils % 57.3 Lymphocytes % 32.8 Monocytes % 5.9 Eosinophils % 3.4 Basophils % 0.6 Absolute Neutrophils 2.4 Absolute Lymphocytes 1.4 Absolute Monocytes 0.2 Absolute Eosinophils 0.1 Absolute Basophils 0.0 Sodium 148.6 H Potassium 3.5 L Chloride 108 H Carbon Dioxide 30 Anion Gap 11 BUN 8 Creatinine 0.93 Est GFR ( Amer) > 60 Est GFR (Non-Af Amer) > 60 Glucose 107 Calcium 9.0 Magnesium 2.3 Total Bilirubin 0.2 AST 14 ALT 14 Alkaline Phosphatase 56 Total Protein 6.9 Albumin 3.7 02/06/18 02/06/18 11:20 11:20 Troponin I < 0.012 NT-Pro-B Natriuret Pep 54 Impressions: Chest X-Ray 02/06/18 11:05 IMPRESSION: Minimal left basilar densities as noted above. Remaining lung buitrago are clear. Other findings as noted above Assessment & Plan - Diagnosis (1) Chest pain Qualifiers: Chest pain type: other chest pain Qualified Code(s): R07.89 - Other chest pain; R07.8 - Other chest pain Is this a current diagnosis for this admission?: Yes Plan: It seems more of noncardiac since the chest pain is elevated by movement and change in position. Cardiac stress test and trend her cardiac enzymes. (2) COPD (chronic obstructive pulmonary disease) Qualifiers: Emphysema type: unspecified Is this a current diagnosis for this admission?: Yes Plan: As needed bronchodilator (3) Hyperlipidemia Is this a current diagnosis for this admission?: Yes Plan: Continue home medication (4) Anxiety and depression Is this a current diagnosis for this admission?: Yes Plan: Currently stable and in remission.
[2018-02-07 00:25] LABS: CREATINE KINASE MB 0.55 ng/mL (<4.55)
--- NOTE | 2018-02-07 00:25 | EKG REPORT ---
SEVERITY:- BORDERLINE ECG - SINUS RHYTHM LVH BY VOLTAGE : Confirmed by: Tammy Hendrix MD 07-Feb-2018 00:24:19
[2018-02-07 00:28] LABS: TROPONIN I < 0.012 ng/mL
[2018-02-07] MEDS ORDERED: LANSOPRAZOLE 30 MG TAB.RAP.DR PO SCH (06:00)
[2018-02-07 06:46] LABS: CHOLESTEROL 131.79 mg/dL (0-200); CREATINE KINASE 77 U/L (30-135); TRIGLYCERIDES 137 mg/dL (<150)
[2018-02-07 06:58] LABS: DIRECT LDL 75 mg/dL (<100)
[2018-02-07 06:59] LABS: CREATINE KINASE MB 0.53 ng/mL (<4.55)
[2018-02-07 07:06] LABS: TROPONIN I < 0.012 ng/mL
[2018-02-07] MEDS ORDERED: (PENDING PHARMACY ID) (Ranitidine Hcl [Ranitidine Hcl] 150 MG) PO SCH (10:00)
[2018-02-07] MEDS ORDERED: LANSOPRAZOLE 30 MG TAB.RAP.DR PO ONE (10:00)
[2018-02-07] MEDS ORDERED: FAMOTIDINE 20 MG TABLET PO SCH (10:00)
[2018-02-07] MEDS ORDERED: ENOXAPARIN SODIUM INJ 40 MG/0.4 ML DISP.SYRIN SUBCUT SCH (10:00)
[2018-02-07] MEDS ORDERED: REGADENOSON INJ 0.4 MG/5 ML DISP.SYRIN IV ONE (11:19)
[2018-02-07 11:53] LABS: CREATINE KINASE MB 0.65 ng/mL (<4.55)
[2018-02-07 11:55] LABS: TROPONIN I < 0.012 ng/mL
--- NOTE | 2018-02-07 13:21 | DRAGON STRESS TEST REPORT ---
INTRAVENOUS LEXISCAN CARDIOLITE STRESS TEST USING SINGLE PHOTON EMMISION COMPUTERIZED TOMOGRAPHIC. DATE OF PROCEDURE: February 07, 2018, INDICATION : Chest pain CARDIAC RISK FACTORS: None identified RESTING EKG: Sinus rhythm without any baseline ST-T wave changes STRESS EKG: No significant ST segment changes noted with LexiScan bolus REASON FOR TERMINATION: Protocol. PROCEDURE REPORT: Baseline heart rate 85 beats per minute with blood pressure of 127/87. Patient had no significant complaints. Patient was bolused with Lexiscan 0.4 mg intravenously followed by saline bolus. Heart rate at 2 minutes post bolus 112 with a blood pressure of 151/86. 3 minutes post bolus heart rate 109 with blood pressure of 149/87. No significant EKG changes were noted. Patient had no significant complaints during the procedure or postprocedure. CONCLUSIONS: Normal EKG and hemodynamic response to IV LexiScan. NUCLEAR DATA: At rest the patient was given 10.78 millicuries of technetium 99 sestamibi injected intravenously. As per protocol rest gated SPECT images were obtained. On day of stress test, the patient was given intravenous LexiScan at a dose of 0.4 mg in 5 mL intravenously, followed by flush with normal saline. Subsequently the stress dose of 31.7 millicuries of technetium 99 sestamibi was injected intravenously. As per protocol stress gated images were obtained. NUCLEAR INTERPRETATION: Both raw and processed data were used for interpretation. Visual, qualitative, computer-generated quantitative data was used. There was good myocardial uptake of technetium compound. Motion artifact and soft tissue attenuations were noted. Increased visceral uptake was noted. No definitive areas of transient perfusion defect noted, No definitive areas of fixed perfusion defect or scars noted. EKG gated imaging showed LV EF at 54 %, rest and stress gated EF similar visually. T. I D. ratio was 1.05. Lung heart ratio noted to be within normal limits 0.41. No significant extracardiac and abnormal radiotracer activities were noted. RV free wall uptake was noted to be WNL. IMPRESSION: Also refer to comments under nuclear interpretation. Also test results needs to be interpreted in the context of pretest probability. 1. No definitive areas of transient perfusion defect noted. 2. There is no definitive scintigraphic evidence of myocardial infarction/scar. 3. EKG gated imaging shows left ventricular ejection fraction of approx. 54 %. 4. Clinical correlation requested as occasionally single vessel disease or balanced ischemia could be missed. In approximately 10% of the cases Lexiscan may not cause adequate vasodilatory stress. RECOMMENDATIONS: Aggressive risk factor modification and medical management. Further evaluation may be needed if continued symptoms or other high risk indicators are noted on clinical evaluation. Close cardiology follow-up is also recommended. Clinical correlation with echocardiogram derived ejection fraction. Inability to exercise by itself can lead to increased cardiovascular event risks. Consider cardiology consultation and or follow-up if clinically indicated. I am available for cardiology evaluation and consultation if requested by the propeller mechanic, unless patient already has a data entry representative. Dr. Salome Campbell. MRCP Board certified in cardiology and sleep medicine. Board certified in nuclear cardiology, adult echocardiography. CRISPIN
--- NOTE | 2018-02-07 18:11 | PDOC DISCHARGE SUMMARY ---
General - Admit/Disc Date/PCP Admission Date/Primary Care Provider: 02/06/18 14:39 BETH HERNADEZLASHAE-Hanny Discharge Date: 02/07/18 - Discharge Diagnosis (1) Chest pain Is this a current diagnosis for this admission?: Yes Summary: Likely Muscular skeletal origin (2) Hyperlipidemia Is this a current diagnosis for this admission?: Yes (3) Anemia of chronic disease Is this a current diagnosis for this admission?: Yes (4) Anxiety and depression Is this a current diagnosis for this admission?: Yes (5) GERD (gastroesophageal reflux disease) Is this a current diagnosis for this admission?: Yes - Additional Information Resuscitation Status: Full Code Discharge Diet: Cardiac Discharge Activity: Activity As Tolerated Home Medications: Alendronate Sodium [Fosamax] 70 mg PO Q7D 02/06/18 Aspirin/Dipyridamole [Aggrenox 25 mg-200 mg Capsule] 1 each PO DAILY 02/06/18 Buprenorphine [Butrans] 1 each TD MO@1000 02/06/18 Doxepin HCl 150 mg PO QHS 02/06/18 Esomeprazole Magnesium [Nexium] 40 mg PO DAILY 02/06/18 Gabapentin [Neurontin 300 mg Capsule] 300 mg PO Q8 02/06/18 Linaclotide [Linzess 145 Mcg Capsule] 145 mcg PO DAILY 02/06/18 Methocarbamol 500 mg PO TIDP PRN 02/06/18 Mirabegron [Myrbetriq] 25 mg PO DAILY 02/06/18 Ranitidine HCl 150 mg PO BID 02/06/18 History of Present Illness History of Present Illness: DIPESH BRAUN is a 68 year old female patient with past medical history of hypertension, GERD, TIA, stroke, COPD, migraine and chronic macrocytic anemia presents with chief complaint of chest pain of one-week duration. She describes the chest pain as dull shooting to her underneath his left arm. This pain is aggravated by movement. She denies any chills, fever, cough, palpitation, diaphoresis, nausea, vomiting, abdominal pain, diarrhea or any urinary complaints. No dizziness, headache, blurry vision or any seizure activity. Her lab works are unremarkable. Hospital Course Hospital Course: He was monitored overnight and had negative cardiac enzymes done and subsequent Cardiolite stress test revealed no evidence of ischemia. Patient's chest pain is resolved. She has remained hemodynamically stable. There has been no evidence of active pneumonia. Patient is been discharged home in stable condition and she has been asked to follow-up with her primary care physician especially if chest pain persist Physical Exam Vital Signs: Temp Pulse Resp BP Pulse Ox 99.1 F 98 17 123/81 96 02/07/18 15:23 02/07/18 15:23 02/07/18 15:23 02/07/18 15:23 02/07/18 15:23 Intake & Output 02/06/18 02/07/18 02/08/18 06:59 06:59 06:59 Intake Total 222 100 Balance 222 100 Weight 62.2 kg General appearance: PRESENT: no acute distress, thin Head exam: PRESENT: atraumatic, normocephalic Eye exam: PRESENT: conjunctiva pink, EOMI, PERRLA. ABSENT: scleral icterus Ear exam: PRESENT: normal external ear exam Mouth exam: PRESENT: moist, tongue midline Neck exam: ABSENT: carotid bruit, JVD, lymphadenopathy, thyromegaly Respiratory exam: PRESENT: clear to auscultation gerard. ABSENT: rales, rhonchi, wheezes Cardiovascular exam: PRESENT: RRR. ABSENT: diastolic murmur, rubs, systolic murmur Pulses: PRESENT: normal dorsalis pedis pul Vascular exam: PRESENT: normal capillary refill GI/Abdominal exam: PRESENT: normal bowel sounds, soft. ABSENT: distended, guarding, mass, organolmegaly, rebound, tenderness Rectal exam: PRESENT: deferred Extremities exam: PRESENT: full ROM. ABSENT: calf tenderness, clubbing, pedal edema Neurological exam: PRESENT: alert, awake, oriented to person, oriented to place , oriented to time, oriented to situation, CN II-XII grossly intact. ABSENT: motor sensory deficit Psychiatric exam: PRESENT: appropriate affect, normal mood. ABSENT: homicidal ideation, suicidal ideation Skin exam: PRESENT: dry, intact, warm. ABSENT: cyanosis, rash Results Laboratory Results: 02/07/18 05:57 Triglycerides 137 Cholesterol 131.79 LDL Cholesterol Direct 75 VLDL Cholesterol 27.0 HDL Cholesterol 38 L 02/06/18 02/06/18 02/06/18 17:50 17:50 17:50 Creatine Kinase 85 CK-MB (CK-2) 6.16 H Troponin I < 0.012 0602/06/18 02/07/18 23:42 23:42 05:57 Creatine Kinase 80 77 CK-MB (CK-2) 0.55 Troponin I < 0.012 02/07/18 02/07/18 02/07/18 05:57 10:13 10:13 Creatine Kinase 77 CK-MB (CK-2) 0.53 0.65 Troponin I < 0.012 < 0.012 Impressions: Chest X-Ray 02/06/18 11:05 IMPRESSION: Minimal left basilar densities as noted above. Remaining lung buitrago are clear. Other findings as noted above Qualifiers - * PATIENT BEING DISCHARGED WITH ANY OF THE FOLLOWING DIAGNOSIS: No Plan Time Spent: Less than 30 Minutes
[2018-02-07 18:34] VITALS: BP 131/65
--- NOTE | 2018-02-08 00:21 | EKG REPORT ---
SEVERITY:- ABNORMAL ECG - SINUS RHYTHM LEFT VENTRICULAR HYPERTROPHY PROLONGED QT INTERVAL : Confirmed by: Tammy Hendrix MD 08-Feb-2018 00:20:56
== END 2018-02-07 18:55 | disposition home or self-care (01) ==
LOC: ER 10:17 → EH 14:39 → 5 17:09
PROVIDERS: ADMIT Internal Medicine; ATTEND Internal Medicine
DX: R07.89 Other chest pain (principal); E78.5 Hyperlipidemia, unspecified; D63.8 Anemia in other chronic diseases classified elsewhere; D53.9 Nutritional anemia, unspecified; D56.3 Thalassemia minor; D57.1 Sickle-cell disease without crisis; F41.9 Anxiety disorder, unspecified; F32.9 Major depressive disorder, single episode, unspecified; K21.9 Gastro-esophageal reflux disease without esophagitis; J43.9 Emphysema, unspecified; I69.354 Hemiplegia and hemiparesis following cerebral infarction affecting left non-dominant side; Z79.899 Other long term (current) drug therapy; Z90.49 Acquired absence of other specified parts of digestive tract; Z82.49 Family history of ischemic heart disease and other diseases of the circulatory system; Z79.82 Long term (current) use of aspirin
CPT/HCPCS: 93005 ×2; 99285; 36415 ×2; 82553 ×2; 82550 ×2; 83735; 85025; 80053; 84484 ×2; 85379; 80061; 83880; 93017; 71046; 78452; 93010 ×2; 94640; G0378 ×3; A9500; J2785; A9270 ×4; J1650; J3490; Q9969; J7620

== ENCOUNTER → 2018-06-04 | Outpatient (CLI) | payer MEDICARE, MEDICAID ==
--- NOTE | 2018-06-04 15:33 | WOMENS IMAGING REPORT ---
EXAM DESCRIPTION: 3D SCREENING MAMMO BILAT COMPLETED DATE/TIME: 06/04/2018 11:43 am REASON FOR STUDY: BILATERAL SCREENING MAMMO /Z12.31 COMPARISON: 2011, 2016 TECHNIQUE: Standard craniocaudal and mediolateral oblique views of each breast recorded using digita l acquisition and breast tomosynthesis. LIMITATIONS: None. FINDINGS: No masses, calcifications or architectural distortion. No areas of suspicion. Read with the assistance of CAD. .[facility] - R2 Cenova Version 1.3 .[facility] Imaging - R2 Cenova Version 1.3 .[facility] Imaging - R2 Cenova Version 2.4 .[facility] - R2 Cenova Version 2.4 .[facility] - R2 Pool Attendant Version 9.2 IMPRESSION: NORMAL MAMMOGRAM. BIRADS 1. BREAST DENSITY: c. The breasts are heterogeneously dense, which may obscure small masses. BIRAD: 1 NEGATIVE RECOMMENDATION: ROUTINE SCREENING COMMENT: The patient has been notified of the results by letter per SA requirements. Additional no tification policies are in place for contacting patient with suspicious or incomplete findings. Quality ID #[id number]: The [employer] recommends an annual screening mammogram for women aged 40 years or over. This facility utilizes a reminder system to ensure that all patients receive reminder letters, and/or direct phone calls for appointments. This includes reminders for routine scr eening mammograms, diagnostic mammograms, or other Breast Imaging Interventions when appropriate. Th is patient will be placed in the appropriate reminder system. The [employer] (ACR) has developed recommendations for screening MRI of the breast s in certain patient populations, to be used in conjunction with mammography. Breast MRI surveillanc e may be appropriate for women with more than 20% lifetime risk of developing breast cancer as deter mined by genetic testing, significant family history of the disease, or history of mantle radiation f or Hodgkins Disease. ACR Practice Guidelines 2008. DBT Technology DBT is a type of tomographic mammography. With conventional mammography, overlapping breast tissue ma y make lesions difficult to detect, even with good compression. DBT uses an x-ray tube that rotates a round the breast, taking images at different angles. These images are then combined to create thin sl ices of the breast that the radiologist can view as a 3D reconstruction. [facility] can perform full-field digital mammograms (2D imaging); or DBT (3D imaging); or both, in a combination mode that quickly performs both the mammogram and the tomosynthesis scan while the breast is still compressed. PQRS 6045F: Fluoroscopic imaging is not utilized for breast tomosynthesis. TECHNICAL DOCUMENTATION: FINDING NUMBER: (1) ASSESSMENT: (1) JOB ID: [id number] [employer]- All Rights Reserved Reading location - IP/workstation name: [email or web address]
== END ==
LOC: WI 10:50
PROVIDERS: ATTEND Nurse Practitioner Family
DX: Z12.31 Encounter for screening mammogram for malignant neoplasm of breast (principal)
CPT/HCPCS: 77063; 77067

== ENCOUNTER 2018-08-09 17:56 | Emergency (ER) | payer MEDICARE, MEDICAID ==
[2018-08-09] MEDS ORDERED: MAGNESIUM SULFATE/D5W 1 GM/100 ML RTUPB IV ONE ×2 (18:47→21:46)
[2018-08-09] MEDS ORDERED: ONDANSETRON HCL INJ/PF 4 MG/2 ML SDV IV ONE (18:47)
[2018-08-09] MEDS ORDERED: NORMAL SALINE 500 ML IV ONE (18:47)
--- NOTE | 2018-08-09 18:49 | ER Document Report ---
ED Medical Screen (RME) - General Chief Complaint: Headache >24 hrs old Stated Complaint: HEADACHE Time Seen by Provider: 08/09/18 18:36 Notes: Patient is a 68-year-old female with history of multiple CVAs in the past that presents to the emergency department for chief complaint of headache and nausea for 1 week. Denies new numbness, weakness or tingling, or neurological deficits ROS: Other than noted above, the 12 point review of systems was reviewed with the patient and were negative, all pertinent findings are included in the HPI. PHYSICAL EXAMINATION: Vital signs reviewed. GENERAL: Well-appearing, well-nourished and in no acute distress. HEAD: Atraumatic, normocephalic. EYES: Pupils equal round extraocular movements intact, conjunctiva are normal. ENT: Nares patent NECK: Normal range of motion CV: Heart regular rate and rhythm LUNGS: No respiratory distress Musculoskeletal: Normal range of motion NEUROLOGICAL: Mild dysarthria, left sided facial droop, chronic PSYCH: Normal mood, normal affect. MDM: Patient seen and examined for rapid initial assessment. Vital signs reviewed. A comprehensive ED assessment and evaluation of the patient, analysis of test results and completion of the medical decision making process will be conducted by additional ED providers. *Note is created using voice recognition software and may contain spelling, syntax or grammatical errors. TRAVEL OUTSIDE OF THE [place] IN LAST 30 DAYS: No - Related Data Allergies/Adverse Reactions: No Known Allergies Allergy (Verified 08/09/18 18:01) Past Medical History - Social History Chew tobacco use (# tins/day): No Frequency of alcohol use: None Drug Abuse: None - Past Medical History Cardiac Medical History: Reports: Hx Hypercholesterolemia Denies: Hx Coronary Artery Disease, Hx Heart Attack, Hx Hypertension Pulmonary Medical History: Reports: Hx Bronchitis, Hx COPD, Hx Pneumonia - hx of Denies: Hx Asthma Neurological Medical History: Reports: Hx Cerebrovascular Accident - 3 prior strokes resulting in left-sided weakness., Hx Migraine. Denies: Hx Seizures Renal/ Medical History: Reports: Hx Kidney Stones. Denies: Hx Peritoneal Dialysis GI Medical History: Reports: Hx Gastroesophageal Reflux Disease, Hx Ulcer. Denies: Hx Hepatitis, Hx Hiatal Hernia Musculoskeltal Medical History: Reports Hx Arthritis - Back & legs Psychiatric Medical History: Reports: Hx Anxiety, Hx Depression, Hx Schizophrenia Infectious Medical History: Denies: Hx Hepatitis Past Surgical History: Reports: Hx Cholecystectomy, Hx Gynecologic Surgery - Pelvic abscess surgery, Hx Hysterectomy, Hx Orthopedic Surgery - Cervical fusion, Hx Tubal Ligation, Other - Cataract surgery. Denies: Hx Mastectomy, Hx Open Heart Surgery, Hx Pacemaker - Immunizations Immunizations up to date: Yes Hx Diphtheria, Pertussis, Tetanus Vaccination: No - unknown Physical Exam - Vital signs Vitals: Temp Pulse Resp BP Pulse Ox 98.1 F 90 16 117/88 H 97 08/09/18 18:05 08/09/18 18:05 08/09/18 18:05 08/09/18 18:05 08/09/18 18:05 Course - Vital Signs Vital signs: Temp Pulse Resp BP Pulse Ox 98.1 F 90 16 117/88 H 97 08/09/18 18:05 08/09/18 18:05 08/09/18 18:05 08/09/18 18:05 08/09/18 18:05 Doctor's Discharge - Discharge Referrals: BETH HERNADEZ FNP-C [Primary Care Provider] - Follow up as needed
--- NOTE | 2018-08-09 19:28 | RADIOLOGY REPORT (SQ) ---
EXAM DESCRIPTION: CT HEAD WITHOUT COMPLETED DATE/TIME: 08/09/2018 7:15 pm REASON FOR STUDY: headache, hx cva COMPARISON: MR 12/30/2017 CT 12/30/2017 TECHNIQUE: Axial images acquired through the brain without intravenous contrast. Images reviewed wi th bone, brain and subdural windows. Additional sagittal and coronal reconstructions were generated. Images stored on PACS. All CT scanners at this facility use dose modulation, iterative reconstruction, and/or weight based d osing when appropriate to reduce radiation dose to as low as reasonably achievable (ALARA). [facility]: Dose Right [facility]: CareDose [facility]: Dose Right [facility]: Teradose 4D [facility]: Smart [employer] RADIATION DOSE: CT Rad equipment meets quality standard of care and radiation dose reduction techniq ues were employed. CTDIvol: 53.2 mGy. DLP: 991 mGy-cm. mGy. LIMITATIONS: None. FINDINGS: VENTRICLES: Normal size and contour. CEREBRUM: No masses. No hemorrhage. No midline shift. No evidence for acute infarction. Normal gra y/white matter differentiation. No areas of low density in the white matter. CEREBELLUM: No masses. No hemorrhage. No alteration of density. No evidence for acute infarction. EXTRAAXIAL SPACES: No fluid collections. No masses. ORBITS AND GLOBE: No intra- or extraconal masses. Normal contour of globe without masses. CALVARIUM: No fracture. PARANASAL SINUSES: No fluid or mucosal thickening. SOFT TISSUES: No mass or hematoma. OTHER: No other significant finding. IMPRESSION: NORMAL BRAIN CT WITHOUT CONTRAST. EVIDENCE OF ACUTE STROKE: NO. COMMENT: Quality ID # [id number]: Final reports with documentation of one or more dose reduction techniques (e.g., Automated exposure control, adjustment of the mA and/or kV according to patient size, use of iterative reconstruction technique) TECHNICAL DOCUMENTATION: JOB ID: [id number] [employer]- All Rights Reserved Reading location - IP/workstation name: [email or web address]
[2018-08-09 19:49] LABS: ABSOLUTE EOSINOPHILS # (AUTO) 0.2 10^3/uL (0.0-0.6); ABSOLUTE LYMPHOCYTES (AUTO) 2.5 10^3/uL (0.5-4.7); ABSOLUTE MONOCYTES (AUTO) 0.3 10^3/uL (0.1-1.4); ABSOLUTE NEUT (AUTO) 3.8 10^3/uL (1.7-8.2); BASOPHILS % (AUTO) 0.4 % (0-2); EOSINOPHILS % (AUTO) 2.6 % (0-6); HEMATOCRIT 34.2 % (36.0-47.0); HEMOGLOBIN 11.2 g/dL (12.0-15.5); LYMPHOCYTES % (AUTO) 36.8 % (13-45); MEAN CORPUSCULAR HEMOGLOBIN 23.6 pg (27.0-33.4); MEAN CORPUSCULAR HGB CONC 32.6 g/dL (32.0-36.0); MEAN CORPUSCULAR VOLUME 72 fl (80-97); MONOCYTES % (AUTO) 4.7 % (3-13); PLATELET COUNT 265 10^3/uL (150-450); RED BLOOD COUNT 4.73 10^6/uL (3.72-5.28); RED CELL DISTRIBUTION WIDTH 16.4 % (11.5-14.0); SEGMENTED NEUTROPHILS % (AUTO) 55.5 % (42-78); TOTAL CELLS COUNTED % (AUTO) 100 %; WHITE BLOOD COUNT 6.8 10^3/uL (4.0-10.5)
[2018-08-09 19:54] LABS: APPEARANCE,URINE SLIGHTLY-CLOUDY; BILIRUBIN,URINE NEGATIVE (NEGATIVE); COLOR,URINE YELLOW; GLUCOSE, URINE NEGATIVE (NEGATIVE); KETONES,URINE NEGATIVE (NEGATIVE); LEUKOCYTE ESTERASE,URINE TRACE (NEGATIVE); NITRITE,URINE NEGATIVE (NEGATIVE); PROTEIN,URINE NEGATIVE (NEGATIVE); URINE SPECIFIC GRAVITY 1.019; UROBILINOGEN,URINE NEGATIVE mg/dL (<2.0)
[2018-08-09 20:04] LABS: ALANINE AMINOTRANSFERASE 10 U/L (9-52); ALBUMIN 4.2 g/dL (3.5-5.0); ALKALINE PHOSPHATASE 65 U/L (38-126); ANION GAP 9 (5-19); ASPARTATE AMINO TRANSFERASE 15 U/L (14-36); BILIRUBIN,DIRECT 0.2 mg/dL (0.0-0.4); BILIRUBIN,TOTAL 0.4 mg/dL (0.2-1.3); BLOOD UREA NITROGEN 21 mg/dL (7-20); CALCIUM 9.5 mg/dL (8.4-10.2); CARBON DIOXIDE 31 mmol/L (22-30); CHLORIDE 102 mmol/L (98-107); GLUCOSE 103 mg/dL (75-110); POTASSIUM 3.8 mmol/L (3.6-5.0); SODIUM 142.2 mmol/L (137-145); TOTAL PROTEIN 7.8 g/dL (6.3-8.2)
[2018-08-09] MEDS ORDERED: METOCLOPRAMIDE HCL INJ/PF 10 MG/2 ML SDV IV ONE (21:29)
[2018-08-09] MEDS ORDERED: KETOROLAC TROMETHAMINE INJ/PF 30 MG/1 ML SDV IV ONE (21:29)
[2018-08-09 21:56] LABS: C-REACTIVE PROTEIN < 5.0 mg/L (<10.0)
--- NOTE | 2018-08-09 22:16 | ER Document Report ---
ED General - General Chief Complaint: Headache >24 hrs old Stated Complaint: HEADACHE Time Seen by Provider: 08/09/18 18:36 Notes: Patient is a 68-year-old female with a past medical history of hypertension, prior CVAs by her report although previous MRI in December of this year did not show any history of previous CVAs, presents complaining of 1 week of a intermittent, global, throbbing headache that has become more constant in the past 2 days. Nothing seems to worsen the headache or trigger it, she has tried [id number] medications without any relief. States that she has a history of headaches similar to this in the past although it has been several years since she had such a headache. She denies any associated weakness, numbness, fever or constitutional symptoms. She has not contacted her primary care physician regarding today's concerns. Denies any head trauma. TRAVEL OUTSIDE OF THE [place] IN LAST 30 DAYS: No - Related Data Allergies/Adverse Reactions: No Known Allergies Allergy (Verified 08/09/18 18:01) Past Medical History - General Information source: Patient - Social History Smoking Status: Former Smoker Chew tobacco use (# tins/day): No Frequency of alcohol use: None Drug Abuse: None Lives with: Family Family History: Reviewed & Not Pertinent, CVA, Hypertension Patient has suicidal ideation: No Patient has homicidal ideation: No - Past Medical History Cardiac Medical History: Reports: Hx Hypercholesterolemia Denies: Hx Coronary Artery Disease, Hx Heart Attack, Hx Hypertension Pulmonary Medical History: Reports: Hx Bronchitis, Hx COPD, Hx Pneumonia - hx of Denies: Hx Asthma Neurological Medical History: Reports: Hx Cerebrovascular Accident - 3 prior strokes resulting in left-sided weakness., Hx Migraine. Denies: Hx Seizures Renal/ Medical History: Reports: Hx Kidney Stones. Denies: Hx Peritoneal Dialysis GI Medical History: Reports: Hx Gastroesophageal Reflux Disease, Hx Ulcer. Denies: Hx Hepatitis, Hx Hiatal Hernia Musculoskeletal Medical History: Reports Hx Arthritis - Back & legs Psychiatric Medical History: Reports: Hx Anxiety, Hx Depression, Hx Schizophrenia Infectious Medical History: Denies: Hx Hepatitis Past Surgical History: Reports: Hx Cholecystectomy, Hx Gynecologic Surgery - Pelvic abscess surgery, Hx Hysterectomy, Hx Orthopedic Surgery - Cervical fusion, Hx Tubal Ligation, Other - Cataract surgery. Denies: Hx Mastectomy, Hx Open Heart Surgery, Hx Pacemaker - Immunizations Immunizations up to date: Yes Hx Diphtheria, Pertussis, Tetanus Vaccination: No - unknown Hx Pneumococcal Vaccination: 08/12/09 Review of Systems - Review of Systems Notes: Constitutional: Negative for fever. HENT: Negative for sore throat. Eyes: Negative for visual changes. Cardiovascular: Negative for chest pain. Respiratory: Negative for shortness of breath. Gastrointestinal: Negative for abdominal pain, vomiting or diarrhea. Genitourinary: Negative for dysuria. Musculoskeletal: Negative for back pain. Skin: Negative for rash. Neurological: Positive for headache 10 point ROS negative except as marked above and in HPI. Physical Exam - Vital signs Vitals: Temp Pulse Resp BP Pulse Ox 98.1 F 90 16 117/88 H 97 08/09/18 18:05 08/09/18 18:05 08/09/18 18:05 08/09/18 18:05 08/09/18 18:05 Interpretation: Normal Notes: PHYSICAL EXAMINATION: GENERAL: Well-appearing, well-nourished and in no acute distress. HEAD: Atraumatic, normocephalic. No pain on palpation of the bilateral temporal arteries. EYES: Pupils equal round and reactive to light, extraocular movements intact, sclera anicteric, conjunctiva are normal. ENT: nares patent, oropharynx clear without exudates. Moist mucous membranes. NECK: Normal range of motion, supple without lymphadenopathy LUNGS: Breath sounds clear to auscultation bilaterally and equal. No wheezes rales or rhonchi. HEART: Regular rate and rhythm without murmurs ABDOMEN: Soft, nontender, normoactive bowel sounds. No guarding, no rebound. No masses appreciated. EXTREMITIES: Normal range of motion, no pitting or edema. No cyanosis. NEUROLOGICAL: Face symmetric. Tongue protrudes midline. Extraocular motions intact. Pupils are 2 mm and equally reactive. Normal speech, normal gait. 5 out of 5 strength in both the distal and proximal upper and lower extremities bilaterally. Sensation is grossly intact throughout. Finger to nose testing n ormal. Pronator drift normal. PSYCH: Normal mood, normal affect. SKIN: Warm, Dry, normal turgor, no rashes or lesions noted. Course - Re-evaluation Re-evalutation: 08/09/18 22:14 Presentation of a headache that appears to be most consistent with tension versus migrainous type headache. Headache was not maximal in onset, patient has no focal neurologic deficits, no nuchal rigidity, vital signs within normal limits, no papilledema, and patient is overall well in appearance. Based on clinical history and examination I do not suspect an acute subarachnoid hemorrhage, dural venous sinus thrombosis, acute meningitis, or intercranial mass. Given of his advanced age a CT the head was obtained which does not history any evidence of an intracranial mass. Labs including ESR and CRP are likewise normal (ESR not above 50, crp undetectable) and history is not consistent with a giant cell arteritis as it is a global headache, no localization over the temporal scalp, no eye involvement. Patient has had resolution of her headache after receiving metoclopramide. At this time will discharge with return precautions and follow-up recommendations. Verbal discharge instructions given a the bedside and opportunity for questions given. Medication warnings reviewed. Patient is in agreement with this plan and has verbalized understanding of return precautions and the need for primary care follow-up in the next 24-72 hours. 08/10/18 03:58 - Vital Signs Vital signs: Temp Pulse Resp BP Pulse Ox 98.2 F 82 16 118/73 98 08/09/18 22:51 08/09/18 22:51 08/09/18 22:51 08/09/18 22:51 08/09/18 22:51 - Laboratory Result Diagrams: 08/09/18 19:23 08/09/18 19:23 Laboratory results interpreted by me: 08/09/18 08/09/18 08/09/18 19:23 19:23 19:23 Hgb 11.2 L Hct 34.2 L MCV 72 L MCH 23.6 L RDW 16.4 H ESR Carbon Dioxide 31 H BUN 21 H Est GFR (Non-Af Amer) 57 L Urine Blood MODERATE H Ur Leukocyte Esterase TRACE H 08/09/18 19:23 Hgb Hct MCV MCH RDW ESR 41 H Carbon Dioxide BUN Est GFR (Non-Af Amer) Urine Blood Ur Leukocyte Esterase - Diagnostic Test Radiology reviewed: Image reviewed, Reports reviewed Radiology results interpreted by me: 08/09/18 22:15 CT head: No acute intracranial bleed or mass Discharge - Discharge Clinical Impression: Headache Qualifiers: Headache type: unspecified Headache chronicity pattern: acute headache Intractability: not intractable Qualified Code(s): R51 - Headache Condition: Good Disposition: HOME, SELF-CARE Additional Instructions: You have been seen in the Emergency Department (ED) for a headache. Please use Tylenol (acetaminophen) or Motrin (ibuprofen) as needed for symptoms, but only as written on the box. As we have discussed, please follow up with your primary care doctor as soon as possible regarding today's ED visit and your headache symptoms. Call your doctor or return to the ED if you have a worsening headache, sudden and severe headache, confusion, slurred speech, facial droop, weakness or numbness in any arm or leg, extreme fatigue, or other symptoms that concern you. Referrals: BETH HERNADEZ, LASHAE-C [Primary Care Provider] - Follow up as needed
[2018-08-09 22:56] VITALS: BP 118/73
== END 2018-08-09 22:56 | disposition home or self-care (01) ==
LOC: ER 17:56
DX: R51 Headache (principal); I10 Essential (primary) hypertension; Z87.891 Personal history of nicotine dependence
CPT/HCPCS: 99284; 96361; 96375; 96365; 36415; 85025; 85652; 86140; 80053; 81001; 84484; 70450; J1885; J2765; J3475; J2405; J7040

== ENCOUNTER → 2018-08-16 | Outpatient (CLI) | payer MEDICARE, MEDICAID ==
--- NOTE | 2018-08-16 17:48 | RADIOLOGY REPORT (SQ) ---
EXAM DESCRIPTION: MRI HEAD WITHOUT COMPLETED DATE/TIME: 08/16/2018 4:09 pm REASON FOR STUDY: NEW DAILY PERSISTENT HEADACHE G44.52 NEW DAILY PERSISTENT HEADACHE ([facility]) COMPARISON: None. TECHNIQUE: Multiplanar imaging includes non-contrasted T1, T2, FLAIR, and diffusion with ADC map seq uences. Images stored on PACS. LIMITATIONS: None. FINDINGS: ANATOMY: No anomalies. Normal vascular flow voids. Pituitary fossa normal. CSF SPACES: Age-appropriate. No extra-axial fluid, hemorrhage or mass. Incidentally noted cavum sep lavern pellucidum. No hydrocephalus. CEREBRUM: Sulci and gyri normal in size and contour. Normal white matter signal on FLAIR imaging. No evidence of hemorrhage, mass, or extraaxial fluid collection. POSTERIOR FOSSA: No signal alteration. No hemorrhage. No edema, masses or mass effect. Internal shelby tory canals, cerebello-pontine angles, mastoids normal. DIFFUSION IMAGING: Negative for acute or sub-acute infarction. ORBITS: No masses. Globes normal. PARANASAL SINUSES: No fluid levels. Mucosa normal. OTHER: No other significant finding. IMPRESSION: No acute or suspicious intracranial abnormality. EVIDENCE OF ACUTE STROKE: NO. TECHNICAL DOCUMENTATION: JOB ID: [id number] [employer]- All Rights Reserved Reading location - IP/workstation name: [email or web address]
== END ==
LOC: RAD 14:47
PROVIDERS: ATTEND Nurse Practitioner Family
DX: G44.52 New daily persistent headache (NDPH) (principal)
CPT/HCPCS: 70551

== ENCOUNTER 2019-02-13 12:58 | Emergency (ER) | payer MEDICARE, MEDICAID ==
[2019-02-13 13:13] VITALS: BP 126/80
--- NOTE | 2019-02-13 15:32 | ER Document Report ---
HPI - HPI Patient complains to provider of: right sided back pain and right sided sciatica x 1 mth Time Seen by Provider: 02/13/19 15:31 Onset/Duration: Gradual, Persistent Quality of pain: Achy Severity: Moderate Pain Level: 3 Exacerbated by: Movement, Walking Relieved by: Remaining still Similar symptoms previously: Yes Recently seen / treated by doctor: No Notes: this is a 69 yr old female pt with the listed pmh, presenting with an acute exacerbation of their lower back pain and sciatica. Patient states that this has been ongoing for a month. Patient states that the pain is a sharp achy 7 out of 10 pain with radiation down her right leg which is typical of her usual pain, nothing different. Patient states that movement and palpation make the pain worse and rest makes the pain better. Patient denies any numbness, tingling, change of bowel or bladder habits or signs or symptoms of saddle anesthesia. Patient states that secondary to the pain, they have come to the emergency department. No spinal surgeries other than a remote cervical fusion. No other fa lls or trauma. no IV drug use. otc meds not helping much. is taking gapabentin and muscle relaxers also which help. has neuro apt in 4 days. states steroids really don't help and was recently on them. no hx of diabetes. no recent abx. no fevers, uti sx, or genitalia complaints. pt able to walk. pt hasn't sought care until now. Patient denies all other complaints at this time. - ROS Systems Reviewed and Negative: Yes All other systems reviewed and negative - to include 10, unless mentioned in the hpi - REPRODUCTIVE Reproductive: DENIES: : Past Medical History - General Information source: Patient - Social History Smoking Status: Unknown if Ever Smoked Frequency of alcohol use: Occasional Drug Abuse: None Family History: CVA, Hypertension Patient has suicidal ideation: No Patient has homicidal ideation: No - Past Medical History Cardiac Medical History: Reports: Hx Hypercholesterolemia Denies: Hx Coronary Artery Disease, Hx Heart Attack, Hx Hypertension Pulmonary Medical History: Reports: Hx Bronchitis, Hx COPD - not on home o2, Hx Pneumonia - hx of Denies: Hx Asthma Neurological Medical History: Reports: Hx Cerebrovascular Accident - 3 prior strokes resulting in left-sided weakness., Hx Migraine. Denies: Hx Seizures Endocrine Medical History: Denies: Hx Diabetes Mellitus Type 1, Hx Diabetes Mellitus Type 2 Renal/ Medical History: Reports: Hx Kidney Stones. Denies: Hx Peritoneal Dialysis GI Medical History: Reports: Hx Gastroesophageal Reflux Disease, Hx Ulcer. Denies: Hx Hepatitis, Hx Hiatal Hernia Musculoskeletal Medical History: Reports Hx Arthritis - Back & legs Psychiatric Medical History: Reports: Hx Anxiety, Hx Depression, Hx Femi izophrenia Infectious Medical History: Denies: Hx Hepatitis Past Surgical History: Reports: Hx Cholecystectomy, Hx Gynecologic Surgery - Pelvic abscess surgery, Hx Hysterectomy, Hx Orthopedic Surgery - Cervical fusion, Hx Tubal Ligation, Other - Cataract surgery. Denies: Hx Mastectomy, Hx Open Heart Surgery, Hx Pacemaker - Immunizations Immunizations up to date: Yes Hx Pneumococcal Vaccination: 08/12/09 Vertical Provider Document - CONSTITUTIONAL Notes: Vital signs: All vital signs were reviewed per nursing notes. Gen. Appearance: Nontoxic, patient of stated age, sitting comfortably in the bed. pleasant, elderly female, smiling, speaking in full sentences, in no sign of pain or resp distress, nontoxic Psychiatric: Alert and oriented x3, pleasant and very conversational, normal affect. Skin: Warm, pink, dry, normal turgor, no rashes. no grossly visible overlying skin changes or signs of trauma. HEENT: Normocephalic, atraumatic, no vitale signs. no raccoon eyes, pupils are equal and reactive to light, extraocular muscles intact, tympanic membranes and canals normal bilat, mucosal membranes moist, pink conjunctiva, no pharyngeal erythema no tonsillar exudate. no drooling, tripoding, voice change or stridor, uvula midline. tongue protrudes midline Neck: Supple, no JVD, no tenderness, no lymphadenopathy. full rom and full strength. no meningeal signs. no signs of central cord syndrome CV: Regular rate and rhythm, no murmurs Lungs: Clear to auscultation bilaterally, no wheezes, symmetrical chest rise. no chest wall ttp Abdomen: Soft, nontender, nondistended, good bowel sounds, no rebound, rigidity, guarding or peritoneal signs. No CVA tenderness bilaterally. This is a nonacute abdomen. No tenderness over McBurney's point. no grossly visible or palpable abdominal hernias Genitalia: pt deferred Rectal: deferred; however, no sign of loss of bowel or bladder, no soiling of clothing Back: There is increased tissue tension over the paralumbar musculature on the bilat sides-R>L. Palpation to this region did reproduce patient's pain exactly. There is no tenderness to palpation along the midline of the cervical, thoracic or lumbar spine. There are no step-offs or deformities noted. no overlying skin changes. Extremities: Distal pulses two out of four, good capillary refill, no edema, cyanosis or clubbing. full rom and full strength in all extremities with pain on right hip flexion and extension. no swelling or ttp of the extremities. normal gait. good hand cigar packer and picker. neg derek sign. neg june squeeze. no drop foot. no shortening or rotation of the limbs. no obvious deformities. Neuro: Cranial nerves II through XII intact, normal speech, cerebellar function intact. Symmetric smile and faces. reflexes wnl. motor and sensation intact to light touch. - INFECTION CONTROL TRAVEL OUTSIDE OF THE [place] IN LAST 30 DAYS: No Course - Re-evaluation Re-evalutation: 02/13/19 16:23 pt here for an acute exacerbation of their chronic low back pain and right sided sciatica. no fall or trauma or change in neurologic so imaging wasn't done. she has gabapentin and muscle relaxers at home and was recently on steroids. will avoid steroids at this time secondary to recent use. pt can cont her gabapentin and muscle relaxers. pain not controlled with otc meds so will dc with a few ultram. she denies prior hx of seizures. gave medication precautions. advised of our narcotic policy and the need to keep her apt with neuro in 4 days without fail. advised sx care. ice/heat to the area. advised to f/u with pcp/neuro/pain management in 1-2 days. return for any worsening symptoms. vss. well appearing. satting well on ra. neurononfocal. pt understands and agrees to plan. she didn't have a driver/refuse collector here and didn't want toradol, tylenol, or motrin here for her pain. just requested a script for pain meds and to be dc'd. On reexam, pt remained stable. nontoxic. well appearing. pain controlled. tolerating po. requesting to go home. neurononfocal. Documentation achieved through voice recording which my lead to some occasional accidental typographical errors. Extensive efforts have been made to proof read documentation to make sure these are the least as possible. According to [place] drug database, the patient has received multiple prescriptions of narcotic pain medicine; however, has not received anything since 08/11/2018 for 60 tramadol, before that she has been on buprenorphine patches, Tylenol with codeine and Vicodin occasionally back in 2017. - Vital Signs Vital signs: Temp Pulse Resp BP Pulse Ox 98.5 F 101 H 16 126/80 H 97 02/13/19 13:12 02/13/19 13:12 02/13/19 13:12 02/13/19 13:12 02/13/19 13:12 Discharge - Discharge Clinical Impression: Acute exacerbation of chronic low back pain, Right sided sciatica Condition: Stable Disposition: HOME, SELF-CARE Instructions: Ice Packs ([facility]), Low Back Pain ([facility]), Muscle Strain ([facility]), Warm Packs ([facility]) Additional Instructions: Follow-up with PCP/neuro/pain management in 1 to 2 days. Return for any worsening symptoms. ice/Heat to your back. Do not drive, work, operate machinery while taking the pain medication. You can continue to take your muscle relaxers and gabapentin. Keep your appointment with your neurologist in 4 days. Prescriptions: Tramadol HCl [Ultram 50 mg Tablet] 50 mg PO QID PRN #12 tab PRN Reason: Referrals: BETH HERNADEZ FNP-C [Primary Care Provider] - Follow up as needed
== END 2019-02-13 16:35 | disposition home or self-care (01) ==
LOC: ER 12:58
DX: G89.29 Other chronic pain (principal); M54.41 Lumbago with sciatica, right side; Z79.899 Other long term (current) drug therapy; J44.9 Chronic obstructive pulmonary disease, unspecified
CPT/HCPCS: 99283

== ENCOUNTER → 2019-02-16 | Outpatient (CLI) | payer MEDICARE, MEDICAID ==
--- NOTE | 2019-02-16 12:51 | RADIOLOGY REPORT (SQ) ---
EXAM DESCRIPTION: LUMBAR SPINE COMPLETE COMPLETED DATE/TIME: 02/16/2019 12:22 pm REASON FOR STUDY: LOW BACK PAIN RADIATING TO RIGHT LEG M54.5 LOW BACK PAIN COMPARISON: Lumbar spine films 04/14/2011, 04/28/2008 NUMBER OF VIEWS: Five views including obliques. TECHNIQUE: AP, lateral, oblique, and sacral radiographic images acquired of the lumbar spine. LIMITATIONS: None. FINDINGS: MINERALIZATION: Bones are osteopenic SEGMENTATION: Normal. No transitional anatomy. ALIGNMENT: Normal. VERTEBRAE: Maintained height. No fracture or worrisome bone lesion. DISCS: Preserved height. No significant osteophytes or end plate irregularity. POSTERIOR ELEMENTS: Pedicles and facets are intact. No pars defect or posterior arch defects. Mild bilateral facet arthropathy at L4-5 and L5-S1 HARDWARE: None in the spine. PARASPINAL SOFT TISSUES: Clips right upper quadrant post cholecystectomy. Suspect a 10 mm left midpo le intrarenal nonobstructive kidney stone PELVIS: SI joints are intact OTHER: No other significant finding. IMPRESSION: Lower lumbar facet arthropathy at L4-5 and L5-S1 Suspected 10 mm left midpole intrarenal nonobstructive kidney stone TECHNICAL DOCUMENTATION: JOB ID: [id number] [employer]- All Rights Reserved Reading location - IP/workstation name: [email or web address]
== END ==
LOC: OD 12:03
PROVIDERS: ATTEND Nurse Practitioner Acute Care
DX: M54.5 Low back pain (principal); M12.88 Other specific arthropathies, not elsewhere classified, other specified site
CPT/HCPCS: 72110

== ENCOUNTER 2019-03-04 12:44 | Emergency (ER) | payer MEDICARE, MEDICAID ==
--- NOTE | 2019-03-04 13:37 | ER Document Report ---
ED Medical Screen (RME) - General Chief Complaint: Back Pain Stated Complaint: BACK PAIN Time Seen by Provider: 03/04/19 13:32 Primary Care Provider: MAIRANO COPE NP [Primary Care Provider] - Follow up as needed Mode of Arrival: Wheelchair Information source: Patient Notes: 69-year-old female presented to ED for complaint of sharp low back pain. She states is been for several days this time. She states she has not had any new injuries. She states she is not taking any pain medicine for her back pain. She has a history of chronic back pain but never this bad. States she has a history of a 10 mm kidney stone for over a year but they have not removed it. She states she also has a history of constipation. She states her next appointment with her primary care doctor and erbecca Camp is in March. Patient is alert and oriented respirations regular and unlabored. She denies smoking drinking or doing any drugs. I have greeted and performed a rapid initial assessment of this patient. A comprehensive ED assessment and evaluation of the patient, analysis of test results and completion of medical decision making process will be conducted by a n additional ED providers. Dictation of this chart was performed using voice recognition software; therefore, there may be some unintended grammatical errors. TRAVEL OUTSIDE OF THE [place] IN LAST 30 DAYS: No - Related Data Allergies/Adverse Reactions: No Known Allergies Allergy (Verified 03/04/19 12:46) Past Medical History - Past Medical History Cardiac Medical History: Reports: Hx Hypercholesterolemia Pulmonary Medical History: Reports: Hx Bronchitis, Hx COPD, Hx Pneumonia - hx of EENT Medical History: Reports: None Neurological Medical History: Reports: Hx Cerebrovascular Accident - 3 prior strokes resulting in left-sided weakness., Hx Migraine Endocrine Medical History: Reports: None Renal/ Medical History: Reports: Hx Kidney Stones Malignancy Medical History: Reports: None GI Medical History: Reports: Hx Gastroesophageal Reflux Disease, Hx Ulcer Musculoskeltal Medical History: Reports Hx Arthritis - Back & legs Psychiatric Medical History: Reports: Hx Anxiety, Hx Depression, Hx Schizophrenia Past Surgical History: Reports: Hx Cholecystectomy, Hx Gynecologic Surgery - Pelvic abscess surgery, Hx Hysterectomy, Hx Orthopedic Surgery - Cervical fusion, Hx Tubal Ligation, Other - Cataract surgery - Immunizations Immunizations up to date: Yes Hx Diphtheria, Pertussis, Tetanus Vaccination: No - unknown Physical Exam - Vital signs Vitals: Temp Pulse Resp BP Pulse Ox 98.6 F 96 16 117/84 97 03/04/19 13:15 03/04/19 13:15 03/04/19 13:15 03/04/19 13:15 03/04/19 13:15 Course - Vital Signs Vital signs: Temp Pulse Resp BP Pulse Ox 98.6 F 96 16 117/84 97 03/04/19 13:15 03/04/19 13:15 03/04/19 13:15 03/04/19 13:15 03/04/19 13:15 Doctor's Discharge - Discharge Referrals: MARIANO COPE NP [Primary Care Provider] - Follow up as needed
--- NOTE | 2019-03-04 14:47 | RADIOLOGY REPORT (SQ) ---
EXAM DESCRIPTION: CT ABD/PELVIS NO ORAL OR IV COMPLETED DATE/TIME: 03/04/2019 2:31 pm REASON FOR STUDY: Low back pain worse than normal history 10 mm ston COMPARISON: 05/29/2015 TECHNIQUE: CT scan of the abdomen and pelvis performed without intravenous or oral contrast. Images reviewed with lung, soft tissue, and bone windows. Reconstructed coronal and sagittal MPR images revi ewed. All images stored on PACS. All CT scanners at this facility use dose modulation, iterative reconstruction, and/or weight based d osing when appropriate to reduce radiation dose to as low as reasonably achievable (ALARA). [facility]: Dose Right [facility]: CareDose [facility]: Dose Right [facility]: Teradose 4D [facility]: Xsilon RADIATION DOSE: CT Rad equipment meets quality standard of care and radiation dose reduction techniq ues were employed. CTDIvol: 5.4 mGy. DLP: 294 mGy-cm.mGy. LIMITATIONS: None. FINDINGS: LOWER CHEST: Minimal basilar atelectatic change. No evidence of acute intrathoracic proce ss. NON-CONTRASTED LIVER, SPLEEN, ADRENALS: Evaluation limited by lack of IV contrast. No identified sign ificant masses. Adrenals not well visualized. PANCREAS: Limited evaluation without contrast. No peripancreatic inflammation. GALLBLADDER: Surgically absent. RIGHT KIDNEY AND URETER: No suspicious masses. Assessment limited by lack of IV contrast. Punctate nonobstructing stone. No hydronephrosis or hydroureter. LEFT KIDNEY AND URETER: No suspicious masses. Assessment limited by lack of IV contrast. Stable 8 m m left lower pole stone. No hydronephrosis or hydroureter. AORTA AND RETROPERITONEUM: No aneurysm. No retroperitoneal masses or adenopathy. BOWEL AND PERITONEAL CAVITY: No evidence of intestinal obstruction. No focal bowel wall thickening. Stool throughout the colon. APPENDIX: Not visualized. PELVIS, BLADDER, AND ABDOMINAL WALL:No abnormal masses. No free fluid. Bladder normal. Unchanged rig ht flank fat containing hernia with a 2.2 cm aperture (series 3, image 36). Heterotopic calcificatio n within the right gluteal soft tissues likely from prior injections. BONES: No significant findings. OTHER: No other significant finding. IMPRESSION: 1. Bilateral nonobstructing stones, largest on the left measuring 8 mm. No hydronephro sis. 2. No other evidence of acute intra-abdominal/pelvic process. 3. Stable right flank fat containing hernia. COMMENT: Quality ID # [id number]: Final reports with documentation of one or more dose reduction techniques (e.g., Automated exposure control, adjustment of the mA and/or kV according to patient size, use of iterative reconstruction technique) TECHNICAL DOCUMENTATION: JOB ID: [id number] [employer]- All Rights Reserved Reading location - IP[facility]workstation name: [email or web address]
[2019-03-04 16:47] LABS: APPEARANCE,URINE CLEAR; BILIRUBIN,URINE NEGATIVE (NEGATIVE); COLOR,URINE YELLOW; GLUCOSE, URINE NEGATIVE (NEGATIVE); KETONES,URINE NEGATIVE (NEGATIVE); LEUKOCYTE ESTERASE,URINE NEGATIVE (NEGATIVE); NITRITE,URINE NEGATIVE (NEGATIVE); PROTEIN,URINE NEGATIVE (NEGATIVE); URINE SPECIFIC GRAVITY 1.017; UROBILINOGEN,URINE NEGATIVE mg/dL (<2.0)
--- NOTE | 2019-03-04 17:22 | ER Document Report ---
ED General - General Chief Complaint: Back Pain Stated Complaint: BACK PAIN Time Seen by Provider: 03/04/19 13:32 Primary Care Provider: JHONNY HERNADEZ MD [Primary Care Provider] - Follow up as needed BETH HERNADEZ FNP-C [NO LOCAL MD] - 03/06/19 Mode of Arrival: Wheelchair TRAVEL OUTSIDE OF THE [place] IN LAST 30 DAYS: No - HPI Notes: 69 year old female to the ED with with C/O left right sided low back pain that has gotten worse for the past two days. States that she did not fall or sustain any trauma. She states that the pain radiates down into the front of her right leg. States that she has had this pain before, but it seems a little worse. Denies any fevers, chills, chest pain, SOB, NVD, abd pain, headache, bladder/bowel incontinence, saddle paresthesias, urinary retention. She states she was trying to see her PCP but cannot be seen until the beginning of March. She does report history of kidney stones. - Related Data Allergies/Adverse Reactions: No Known Allergies Allergy (Verified 03/04/19 12:46) Past Medical History - General Information source: Patient - Social History Smoking Status: Never Smoker Chew tobacco use (# tins/day): No Frequency of alcohol use: None Drug Abuse: None Family History: Reviewed & Not Pertinent, CVA, Hypertension Patient has suicidal ideation: No Patient has homicidal ideation: No - Past Medical History Cardiac Medical History: Reports: Hx Hypercholesterolemia Pulmonary Medical History: Reports: Hx Bronchitis, Hx COPD, Hx Pneumonia - hx of EENT Medical History: Reports: None Neurological Medical History: Reports: Hx Cerebrovascular Accident - 3 prior strokes resulting in left-sided weakness., Hx Migraine Endocrine Medical History: Reports: None Renal/ Medical History: Reports: Hx Kidney Stones. Denies: Hx Peritoneal Dialysis Malignancy Medical History: Reports: None GI Medical History: Reports: Hx Gastroesophageal Reflux Disease, Hx Ulcer Musculoskeletal Medical History: Reports Hx Arthritis - Back & legs Psychiatric Medical History: Reports: Hx Anxiety, Hx Depression, Hx Schizophrenia Past Surgical History: Reports: Hx Cholecystectomy, Hx Gynecologic Surgery - Pelvic abscess surgery, Hx Hysterectomy, Hx Orthopedic Surgery - Cervical fusion, Hx Tubal Ligation, Other - Cataract surgery - Immunizations Immunizations up to date: Yes Hx Diphtheria, Pertussis, Tetanus Vaccination: No - unknown Hx Pneumococcal Vaccination: 08/12/09 Review of Systems - Review of Systems Constitutional: denies: Chills, Fever EENT: No symptoms reported Cardiovascular: denies: Chest pain, Dyspnea, Syncope, Dizziness, Lightheaded Respiratory: denies: Cough, Short of breath Gastrointestinal: denies: Abdominal pain, Diarrhea, Nausea, Vomiting Genitourinary: Flank pain. denies: Hematuria, Incontinence Musculoskeletal: Back pain - right sided low back and flank pain, worse with walking or moving Skin: No symptoms reported Hematologic/Lymphatic: No symptoms reported Neurological/Psychological: No symptoms reported -: Yes All other systems reviewed and negative Physical Exam - Vital signs Vitals: Temp Pulse Resp BP Pulse Ox 98.6 F 96 16 117/84 97 03/04/19 13:15 03/04/19 13:15 03/04/19 13:15 03/04/19 13:15 03/04/19 13:15 Interpretation: Normal - General General appearance: Alert In distress: Mild - mild pain distress -- appears colicky, as she will feel well and then states "i get a spasm" - HEENT Head: Normocephalic, Atraumatic Eyes: Normal Pupils: PERRL - Respiratory Respiratory status: No respiratory distress Chest status: Nontender Breath sounds: Normal Chest palpation: Normal - Cardiovascular Rhythm: Regular Heart sounds: Normal auscultation Murmur: No - Abdominal Inspection: Normal Distension: No distension Bowel sounds: Normal Tenderness: Nontender Organomegaly: No organomegaly - Back Back: Tender - there is TTP over the right cva and along the right paraspinal muscles with noted muscular tightness. negative SLR bilaterally., CVA tenderness - Extremities General upper extremity: Normal inspection, Normal ROM, Normal strength General lower extremity: Normal inspection, Normal ROM, Normal strength - Neurological Neuro grossly intact: Yes Cognition: Normal Orientation: AAOx4 Brandon Coma Scale Eye Opening: Spontaneous Harshad Coma Scale Verbal: Oriented Brandon Coma Scale Motor: Obeys Commands Brandon Coma Scale Total: 15 Speech: Normal Cranial nerves: Normal Cerebellar coordination: No: Gait ataxia Motor strength normal: LUE, RUE, LLE, RLE Additional motor exam normals: Equal exchange mechanic. No: Pronator drift Sensory: Normal - Psychological Associated symptoms: Normal affect, Normal mood - Skin Skin Temperature: Warm Skin Moisture: Dry Skin Color: Normal Course - Re-evaluation Re-evalutation: Progress: Rounded on patient. She is feeling better after pain control. We discussed her UA and her CT reading -- she has nephrolithiasis and no obstructive uropathy. Will given another round of pain medicine and then will attempt ambulation. Laboratory 03/04/19 16:30 Urine Color YELLOW Urine Appearance CLEAR Urine pH 6.0 Ur Specific [place] 1.017 Urine Protein NEGATIVE Urine Glucose (UA) NEGATIVE Urine Ketones NEGATIVE Urine Blood MODERATE H Urine Nitrite NEGATIVE Urine Bilirubin NEGATIVE Urine Urobilinogen NEGATIVE Ur Leukocyte Esterase NEGATIVE Urine WBC (Auto) 2 Urine RBC (Auto) 53 Squamous Epi Cells Auto <1 Urine Mucus (Auto) RARE Urine Ascorbic Acid NEGATIVE Abdomen/Pelvis CT 03/04/19 13:38 IMPRESSION: 1. Bilateral nonobstructing stones, largest on the left measuring 8 mm. No hydronephrosis. 2. No other evidence of acute intra-abdominal/pelvic process. 3. Stable right flank fat containing hernia. Impression: Patient's pain continues to improve. Was able to get her up and walk her around the ER with mild assistance. Ravin plan on discharging home -- patient requests to be discharged as well. Will send home with pain control. Urged to return if inability to walk, fevers, chills, bladder/bowel incontinence, intractable vomiting, chest pain, SOB, urinary retention, saddle paresthesias. Patient voices understanding and agrees with the plan. - Vital Signs Vital signs: Temp Pulse Resp BP Pulse Ox 97.8 F 89 16 102/86 H 97 03/04/19 20:51 03/04/19 20:51 03/04/19 20:51 03/04/19 20:51 03/04/19 20:51 - Laboratory Laboratory results interpreted by me: 03/04/19 16:30 Urine Blood MODERATE H Discharge - Discharge Clinical Impression: Nephrolithiasis, Hematuria Right-sided back pain Qualifiers: Back pain location: low back pain Chronicity: acute Sciatica presence: with sciatica Sciatica laterality: sciatica of right side Qualified Code(s): M54.41 - Lumbago with sciatica, right side Condition: Stable Disposition: HOME, SELF-CARE Instructions: Low Back Pain ([facility]), Sciatica ([facility]) Additional Instructions: FOLLOW UP WITH PRIMARY CARE IN THE NEXT 2 DAYS. RETURN IF WORSE - WORSENING PAIN, INABILITY TO WALK, FEVERS, INABILITY TO URINATE. TAKE MEDICINES PRESCRIBED. PUSH FLUIDS. Prescriptions: Cyclobenzaprine HCl [Flexeril 5 mg Tablet] 1 - 2 tab PO TID PRN #15 tablet PRN Reason: Methylprednisolone [Medrol Dosepack (4 mg/Tab) 21 Tab/Dosepak] 4 mg PO ASDIR PRN #21 tab.ds.pk PRN Reason: Oxycodone HCl/Acetaminophen [Percocet 5-325 mg Tablet] 1 - 2 tab PO Q6H PRN #15 tablet PRN Reason: Referrals: JHONNY HERNADEZ MD [Primary Care Provider] - Follow up as needed BETH HERNADEZ FNP-C [NO LOCAL MD] - 03/06/19
[2019-03-04] MEDS ORDERED: HYDROCODONE/ACETAMINOPHEN 5-325 MG TABLET PO ONE (17:54)
[2019-03-04] MEDS ORDERED: CYCLOBENZAPRINE HCL 10 MG TABLET PO ONE (17:54)
[2019-03-04 21:15] VITALS: BP 131/94
== END 2019-03-04 21:05 | disposition home or self-care (01) ==
LOC: ER 12:44
DX: M54.41 Lumbago with sciatica, right side (principal); N20.0 Calculus of kidney; R31.9 Hematuria, unspecified; K46.9 Unspecified abdominal hernia without obstruction or gangrene; R10.9 Unspecified abdominal pain; J44.9 Chronic obstructive pulmonary disease, unspecified
CPT/HCPCS: 99284; 81001; 74176; A9270 ×2

== ENCOUNTER 2019-05-13 23:41 | Emergency (ER) | payer MEDICARE, MEDICAID ==
--- NOTE | 2019-05-14 00:18 | ER Document Report ---
ED Medical Screen (RME) - General Chief Complaint: Closed Head Injury Stated Complaint: FALL Time Seen by Provider: 05/14/19 00:15 Primary Care Provider: PB FERRARO MD [Primary Care Provider] - Follow up as needed Notes: Patient is a 69-year-old female history of multiple TIAs presents to the emergency department after a fall. Patient states she was trying to open the door for her brother. States she is unsure if she tripped on something but states she fell to the floor hitting the right side of her face. Patient's denying any weakness, dizziness, chest pain, lightheadedness. Patient is speaking with a slight slur in her voice with left-sided facial droop. Patient voices this is normal for her from her past TIAs. There is no family member present to speak for patient's current symptoms. Patient's only complaint right now is a generalized headache and pain in her right eye. GENERAL: Alert, interacts well. No acute distress. HEAD: Normocephalic, generalized pain right zygomatic arch and right supraorbital. I have greeted and performed a rapid initial assessment of this patient. A comprehensive ED assessment and evaluation of the patient, analysis of test results and completion of the medical decision making process will be conducted by additional ED providers. I have specifically instructed the patient or family members with the patient to immediately return to any nursing staff should anything change in the patient's condition or with their chief complaint. This medical record was dictated with voice recognizing software. There may be grammatical, syntax errors that are unintended. TRAVEL OUTSIDE OF THE [place] IN LAST 30 DAYS: No - Related Data Allergies/Adverse Reactions: No Known Allergies Allergy (Verified 03/04/19 12:46) Past Medical History - Past Medical History Cardiac Medical History: Reports: Hx Hypercholesterolemia Pulmonary Medical History: Reports: Hx Bronchitis, Hx COPD, Hx Pneumonia - hx of Neurological Medical History: Reports: Hx Cerebrovascular Accident - 3 prior strokes resulting in left-sided weakness., Hx Migraine. Denies: Hx Parkinson's Disease Renal/ Medical History: Reports: Hx Kidney Stones. Denies: Hx Peritoneal Dialysis GI Medical History: Reports: Hx Gastroesophageal Reflux Disease, Hx Ulcer Musculoskeltal Medical History: Reports Hx Arthritis - Back & legs Psychiatric Medical History: Reports: Hx Anxiety, Hx Depression, Hx Schizophrenia Past Surgical History: Reports: Hx Cholecystectomy, Hx Gynecologic Surgery - Pelvic abscess surgery, Hx Hysterectomy, Hx Orthopedic Surgery - Cervical fusion, Hx Tubal Ligation, Other - Cataract surgery - Immunizations Immunizations up to date: Yes Hx Diphtheria, Pertussis, Tetanus Vaccination: No - unknown Physical Exam - Vital signs Vitals: Temp Pulse Resp BP Pulse Ox 97.9 F 98 34 H 115/82 92 05/13/19 23:50 05/13/19 23:50 05/13/19 23:50 05/13/19 23:50 05/13/19 23:50 Course - Vital Signs Vital signs: Temp Pulse Resp BP Pulse Ox 97.9 F 98 34 H 115/82 92 05/13/19 23:50 05/13/19 23:50 05/13/19 23:50 05/13/19 23:50 05/13/19 23:50 Doctor's Discharge - Discharge Referrals: PB FERRARO MD [Primary Care Provider] - Follow up as needed
--- NOTE | 2019-05-14 01:25 | RADIOLOGY REPORT (SQ) ---
EXAM DESCRIPTION: CT HEAD WITHOUT IV CONTRAST COMPLETED DATE/TME: 05/14/2019 00:15 CLINICAL HISTORY: 69 years, Female, fall, L EYE INJURY: HX OF TIA'S, L SIDE FACIAL DROOP(CHRONIC) COMPARISON: MRI 08/16/2018 TECHNIQUE: 194 Images stored on PACS. All CT scanners at this facility use dose modulation, iterative reconstruction, and/or weight based dosing when appropriate to reduce radiation dose to as low as reasonably achievable (ALARA). [facility]: Dose Right [facility]: CareDose [facility]: Dose Right [facility]: Teradose 4D [facility]: [employer] LIMITATIONS: None. FINDINGS: The globes are intact. The paranasal sinuses and mastoid air cells are unremarkable. No displaced or depressed skull fracture. No intra or extra-axial hemorrhage. CT is limited for evaluation of acute infarct. No CT evidence for large or territorial acute infarct. Mild age-appropriate atrophy. No mass. No midline shift IMPRESSION: No acute intracranial abnormality TECHNICAL DOCUMENTATION: Quality ID # 436: Final reports with documentation of one or more dose reduction techniques (e.g., Automated exposure control, adjustment of the mA and/or kV according to patient size, use of iterative reconstruction technique) copyright 2010 [employer]- All Rights Reserved
--- NOTE | 2019-05-14 01:26 | RADIOLOGY REPORT (SQ) ---
EXAM DESCRIPTION: CLINICAL HISTORY: 69 years Female trauma/fall COMPARISON: None. TECHNIQUE: Contiguous axial images obtained through the maxillofacial region without IV contrast. Reformatted images obtained. This exam was performed according to our department optimization program which includes automated exposure control, adjustment of the mA and/or kv according to patient size and/or use of iterative reconstruction technique. FINDINGS: The post septal orbits appear unremarkable. No fluid or significant mucosal thickening in the visualized paranasal sinuses. No facial bone fractures are identified. Degenerative changes in the cervical spine with previous anterior plate and screw fixation. Degenerative changes in the temporomandibular joints particularly on the left. IMPRESSION: No facial bone fractures are identified.
[2019-05-14] MEDS ORDERED: HYDROCODONE/ACETAMINOPHEN 7.5-325 MG TABLET PO ONE (01:33)
--- NOTE | 2019-05-14 02:32 | ER Document Report ---
ED Fall - General Chief Complaint: Fall Stated Complaint: FALL Time Seen by Provider: 05/14/19 00:15 Primary Care Provider: PB FERRARO MD [Primary Care Provider] - Follow up as needed Notes: Patient is a 69-year-old female history of multiple TIAs presents to the emergency department after a fall. Patient states she was trying to open the door for her brother. States she is unsure if she tripped on something but states she fell to the floor hitting the left side of her face. Patient's denying any weakness, dizziness, chest pain, lightheadedness. Patient is speaking with a slight slur in her voice with left-sided facial droop. Patient voices this is normal for her from her past TIAs. There is no family member present to speak for patient's current symptoms. Patient's only complaint right now is a generalized headache and pain in her left eye. Pts left eye is noticeably exotrpic, Pt voiced this his her "crazy eye!" Nursing staff has spoken with family. Voices patient's speech and left facial droop is her baseline based on previous TIAs. Family also voices patient sometimes gets confused. Patient continues to deny any lightheadedness, dizziness, weakness. States she does have a generalized headache and pain in the left eye. Patient's denying any chest pain, shortness of breath. TRAVEL OUTSIDE OF THE [place] IN LAST 30 DAYS: No - Related data Allergies/Adverse Reactions: No Known Allergies Allergy (Verified 03/04/19 12:46) Past Medical History - General Information source: Patient, Relative - Social History Smoking Status: Never Smoker Family History: Reviewed & Not Pertinent, CVA, Hypertension Patient has suicidal ideation: No Patient has homicidal ideation: No - Past Medical History Cardiac Medical History: Reports: Hx Hypercholesterolemia Pulmonary Medical History: Reports: Hx Bronchitis, Hx COPD, Hx Pneumonia - hx of Neurological Medical History: Reports: Hx Cerebrovascular Accident - 3 prior strokes resulting in left-sided weakness., Hx Migraine. Denies: Hx Parkinson's Disease Renal/ Medical History: Reports: Hx Kidney Stones. Denies: Hx Peritoneal Dialysis GI Medical History: Reports: Hx Gastroesophageal Reflux Disease, Hx Ulcer Musculoskeletal Medical History: Reports Hx Arthritis - Back & legs Psychiatric Medical History: Reports: Hx Anxiety, Hx Depression, Hx Schizophrenia Past Surgical History: Reports: Hx Cholecystectomy, Hx Gynecologic Surgery - Pelvic abscess surgery, Hx Hysterectomy, Hx Orthopedic Surgery - Cervical fusion, Hx Tubal Ligation, Other - Cataract surgery - Immunizations Immunizations up to date: Yes Hx Diphtheria, Pertussis, Tetanus Vaccination: No - unknown Hx Pneumococcal Vaccination: 08/12/09 Review of Systems - Review of Systems Constitutional: denies: Fever EENT: See HPI Cardiovascular: No symptoms reported Respiratory: No symptoms reported Gastrointestinal: No symptoms reported Genitourinary: No symptoms reported Female Genitourinary: No symptoms reported Musculoskeletal: No symptoms reported Skin: No symptoms reported Hematologic/Lymphatic: No symptoms reported Neurological/Psychological: See HPI Physical Exam - Vital signs Vitals: Temp Pulse Resp BP Pulse Ox 97.9 F 98 34 H 115/82 92 05/13/19 23:50 05/13/19 23:50 05/13/19 23:50 05/13/19 23:50 05/13/19 23:50 - Notes Notes: GENERAL: Alert, interacts well. No acute distress. Slight left facial droop noted, intermittent slurred speech noted. HEAD: Normocephalic, atraumatic. EYES: Pupils equal, round, and reactive to light. Extraocular movements intact ritgh eye. Left eye exotropia. Pain upon palpation left zygomatic arch. ENT: Oral mucosa moist, tongue midline. Nares patent, no nasal septal hematoma, TM's intact, no hemotympanum noted bilaterally. NECK: Full range of motion. Supple. Trachea midline. LUNGS: Clear to auscultation bilaterally, no wheezes, rales, or rhonchi. No respiratory distress. HEART: Regular rate and rhythm. No murmur ABDOMEN: Soft, non-tender. Non-distended. Bowel sounds present in all 4 quadrants. EXTREMITIES: Moves all 4 extremities spontaneously. No edema, normal radial and dorsalis pedis pulses bilaterally. No cyanosis. No pronator drift noted BACK: no cervical, thoracic, lumbar midline tenderness. No saddle anesthesia, normal distal neurovascular exam. NEUROLOGICAL: Alert and oriented x3. Normal speech. PSYCH: Normal affect, normal mood. SKIN: Warm, dry, normal turgor. No rashes or lesions noted. Course - Re-evaluation Re-evalutation: Facial Bones CT 05/14/19 00:15 IMPRESSION: No facial bone fractures are identified. Head CT 05/14/19 00:15 IMPRESSION: No acute intracranial abnormality TECHNICAL DOCUMENTATION: Quality ID # 436: Final reports with documentation of one or more dose reduction techniques (e.g., Automated exposure control, adjustment of the mA and/or kV according to patient size, use of iterative reconstruction technique) copyright 2011 [employer]- All Rights Reserved Patient was administered pain medication in the emergency department. Upon reassessment patient voices she feels better. Discussed with patient continued care and evaluation with primary care provider. Patient stable for discharge. - Vital Signs Vital signs: Temp Pulse Resp BP Pulse Ox 97.5 F 96 17 104/66 94 05/14/19 02:45 05/14/19 02:45 05/14/19 02:45 05/14/19 02:45 05/14/19 02:45 Discharge - Discharge Clinical Impression: Fall Qualifiers: Encounter type: initial encounter Qualified Code(s): W19.XXXA - Unspecified fall, initial encounter Condition: Stable Disposition: HOME, SELF-CARE Additional Instructions: As we discussed you have been seen and treated in the emergency department after a fall. Please make sure you follow-up with your primary care provider in the next 24 to 48 hours. Please return to the emergency room should you have any other concerns. Referrals: PB FERRARO MD [Primary Care Provider] - Follow up as needed
[2019-05-14 02:52] VITALS: BP 104/66
== END 2019-05-14 02:52 | disposition home or self-care (01) ==
LOC: ER 23:41
DX: R51 Headache (principal); H57.12 Ocular pain, left eye; W19.XXXA Unspecified fall, initial encounter; Y93.89 Activity, other specified; Y92.009 Unspecified place in unspecified non-institutional (private) residence as the place of occurrence of the external cause; I69.392 Facial weakness following cerebral infarction
CPT/HCPCS: 99283; 70450; 70486; A9270

== ENCOUNTER → 2019-05-15 | Outpatient (CLI) | payer MEDICARE, MEDICAID ==
--- NOTE | 2019-05-15 13:55 | WOMENS IMAGING REPORT ---
EXAM DESCRIPTION: 3D SCREENING MAMMO BILAT COMPLETED DATE/TIME: 05/15/2019 11:32 am REASON FOR STUDY: Z12.31 SCREENING MAMMO Z12.31 ENCNTR SCREEN MAMMOGRAM FOR MALIGNANT NEOPLASM OF B RE COMPARISON: Multiple since 2011 EXAM PARAMETERS: Views: Standard craniocaudal and mediolateral oblique views of each breast recorded using digital acquisition and breast tomosynthesis. Read with the assistance of CAD. .[facility] [employer] Code Administrator Version 9.2 LIMITATIONS: None. FINDINGS: No suspicious masses, suspicious calcifications or architectural distortion. No areas of c oncern. IMPRESSION: NEGATIVE MAMMOGRAM. BIRADS 1. BREAST DENSITY: c. The breasts are heterogeneously dense, which may obscure small masses. BIRAD: ASSESSMENT: 1 NEGATIVE RECOMMENDATION: ROUTINE SCREENING Please continue yearly bilateral screening mammography/tomosynthesis in May 2020. COMMENT: The patient has been notified of the results by letter per MQSA requirements. Additional no tification policies are in place for contacting patient with suspicious or incomplete findings. Quality ID #225: The [employer] recommends an annual screening mammogram for women aged 40 years or over. This facility utilizes a reminder system to ensure that all patients receive reminder letters, and/or direct phone calls for appointments. This includes reminders for routine scr eening mammograms, diagnostic mammograms, or other Breast Imaging Interventions when appropriate. Th is patient will be placed in the appropriate reminder system. TECHNICAL DOCUMENTATION: FINDING NUMBER: (1) ASSESSMENT: (1) JOB ID: [id number] [employer]- All Rights Reserved Reading location - IP/workstation name: [email or web address]
== END ==
LOC: WI 11:00
PROVIDERS: ATTEND Internal Medicine Geriatric Medicine
DX: Z12.31 Encounter for screening mammogram for malignant neoplasm of breast (principal)
CPT/HCPCS: 77063; 77067

== ENCOUNTER 2019-09-20 16:26 | Inpatient (IN) | payer MEDICARE, MEDICAID ==
[2019-09-20] MEDS ORDERED: ASPIRIN 81 MG TABLET, CHEWABLE PO ONE (17:33)
[2019-09-20] MEDS ORDERED: ONDANSETRON HCL INJ/PF 4 MG/2 ML SDV IV ONE (17:33)
--- NOTE | 2019-09-20 17:35 | ER Document Report ---
ED Medical Screen (RME) - General Chief Complaint: Shortness Of Breath Stated Complaint: SORE THROAT,COUGH Primary Care Provider: PB FERRARO MD [Primary Care Provider] - Follow up as needed Mode of Arrival: Ambulatory Information source: Patient Notes: Patient presents with cough and difficulty breathing for the past 2 weeks. Patient also complains of some difficulty swallowing as well. Patient states she has a history of scoliosis and had a plate that was placed in her throat by a surgeon. Patient feels that this plate may be causing some of her difficulty in swallowing symptoms. Patient denies any fever. Patient does report occasional chest discomfort. Patient also complains of nausea. Patient dyspneic and tachycardic in triage. I have greeted and performed a rapid initial assessment of this patient. A comprehensive ED assessment and evaluation of the patient, analysis of test results and completion of the medical decision making process will be conducted by additional ED providers. TRAVEL OUTSIDE OF THE [place] IN LAST 30 DAYS: No - Related Data Allergies/Adverse Reactions: No Known Allergies Allergy (Verified 03/04/19 12:46) Past Medical History - Past Medical History Cardiac Medical History: Reports: Hx Hypercholesterolemia Pulmonary Medical History: Reports: Hx Bronchitis, Hx COPD, Hx Pneumonia - hx of Neurological Medical History: Reports: Hx Cerebrovascular Accident - 3 prior strokes resulting in left-sided weakness., Hx Migraine. Denies: Hx Parkinson's Disease Renal/ Medical History: Reports: Hx Kidney Stones. Denies: Hx Peritoneal Dialysis GI Medical History: Reports: Hx Gastroesophageal Reflux Disease, Hx Ulcer Musculoskeltal Medical History: Reports Hx Arthritis - Back & legs Psychiatric Medical History: Reports: Hx Anxiety, Hx Depression, Hx Schizophrenia Past Surgical History: Reports: Hx Cholecystectomy, Hx Gynecologic Surgery - Pelvic abscess surgery, Hx Hysterectomy, Hx Orthopedic Surgery - Cervical fusion, Hx Tubal Ligation, Other - Cataract surgery - Immunizations Immunizations up to date: Yes Hx Diphtheria, Pertussis, Tetanus Vaccination: No - unknown Physical Exam - Respiratory Respiratory status: Labored, Tachypnea, Other - Patient speaking in short 3-4 word sentences Chest status: Tender Breath sounds: Nonproductive cough Doctor's Discharge - Discharge Referrals: PB FERRARO MD [Primary Care Provider] - Follow up as needed
[2019-09-20 18:47] LABS: ABSOLUTE BASOPHILS # (AUTO) 0.1 10^3/uL (0.0-0.2); ABSOLUTE EOSINOPHILS # (AUTO) 0.1 10^3/uL (0.0-0.6); ABSOLUTE LYMPHOCYTES (AUTO) 1.4 10^3/uL (0.5-4.7); ABSOLUTE MONOCYTES (AUTO) 0.3 10^3/uL (0.1-1.4); ABSOLUTE NEUT (AUTO) 7.3 10^3/uL (1.7-8.2); BASOPHILS % (AUTO) 0.8 % (0-2); HEMATOCRIT 34.9 % (36.0-47.0); HEMOGLOBIN 11.2 g/dL (12.0-15.5); LYMPHOCYTES % (AUTO) 15.3 % (13-45); MEAN CORPUSCULAR HEMOGLOBIN 24.2 pg (27.0-33.4); MEAN CORPUSCULAR VOLUME 76 fl (80-97); MONOCYTES % (AUTO) 3.3 % (3-13); PLATELET COUNT 312 10^3/uL (150-450); RED BLOOD COUNT 4.61 10^6/uL (3.72-5.28); RED CELL DISTRIBUTION WIDTH 16.9 % (11.5-14.0); SEGMENTED NEUTROPHILS % (AUTO) 79.6 % (42-78); TOTAL CELLS COUNTED % (AUTO) 100 %; WHITE BLOOD COUNT 9.2 10^3/uL (4.0-10.5)
[2019-09-20] MEDS ORDERED: IPRATROPIUM/ALBUTEROL 0.5-2.5 MG/3 ML AMPUL NEB ONE (18:47)
[2019-09-20] MEDS ORDERED: METHYLPREDNISOLONE INJ 125 MG/2 ML SDV IV ONE (18:47)
[2019-09-20] MEDS ORDERED: BENZONATATE 100 MG CAPSULE PO ONE (18:50)
[2019-09-20] MEDS ORDERED: NORMAL SALINE 1000 ML 1,000 ML IV ONE (18:58)
[2019-09-20 19:06] LABS: ALBUMIN 4.3 g/dL (3.5-5.0); ALKALINE PHOSPHATASE 94 U/L (38-126); ANION GAP 9 (5-19); ASPARTATE AMINO TRANSFERASE 21 U/L (14-36); BILIRUBIN,DIRECT 0.3 mg/dL (0.0-0.4); BILIRUBIN,TOTAL 0.4 mg/dL (0.2-1.3); BLOOD UREA NITROGEN 12 mg/dL (7-20); CALCIUM 9.5 mg/dL (8.4-10.2); CARBON DIOXIDE 32 mmol/L (22-30); CHLORIDE 101 mmol/L (98-107); GLUCOSE 110 mg/dL (75-110); POTASSIUM 3.3 mmol/L (3.6-5.0); TOTAL PROTEIN 8.3 g/dL (6.3-8.2)
[2019-09-20 19:18] LABS: NT PRO BNP 45 pg/mL (<125)
[2019-09-20 19:21] LABS: TROPONIN I < 0.012 ng/mL
[2019-09-20] MEDS ORDERED: GUAIFENESIN/D-METHORPHAN (200-20 MG) SYRUP 10 ML PO ONE (19:26)
[2019-09-20] MEDS ORDERED: POTASSIUM CHLORIDE 10 MEQ TABLET.ER PO ONE (19:26)
[2019-09-20] MEDS ORDERED: ALBUTEROL SULFATE 0.083% NEB 2.5 MG/3 ML AMPUL NEB ONE ×3 (19:26→21:46)
--- NOTE | 2019-09-20 19:33 | ER Document Report ---
Entered by VALDEZ HIRSCH SCRIBE 09/20/19 1839 Acting as scribe for:BETTYE AGUILAR MD ED General - General Chief Complaint: Shortness Of Breath Stated Complaint: SORE THROAT,COUGH Time Seen by Provider: 09/20/19 18:17 Primary Care Provider: PB FERRARO MD [Primary Care Provider] - Follow up as needed Mode of Arrival: Ambulatory Notes: This 69 year old female patient presents to the emergency department today with complaints of a cough. Patient states she always coughs, but it has worsened the past two weeks. Patient states her cough is non-productive and is the reason for her sore throat and being hoarse. TRAVEL OUTSIDE OF THE [place] IN LAST 30 DAYS: No - Related Data Allergies/Adverse Reactions: No Known Allergies Allergy (Verified 03/04/19 12:46) Past Medical History - General Information source: Patient - Social History Smoking Status: Former Smoker Cigarette use (# per day): No Family History: Reviewed & Not Pertinent, CVA, Hypertension Patient has suicidal ideation: No Patient has homicidal ideation: No - Past Medical History Cardiac Medical History: Reports: Hx Hypercholesterolemia Pulmonary Medical History: Reports: Hx Bronchitis, Hx COPD, Hx Pneumonia - hx of Neurological Medical History: Reports: Hx Cerebrovascular Accident - 3 prior strokes resulting in left-sided weakness., Hx Migraine Renal/ Medical History: Reports: Hx Kidney Stones GI Medical History: Reports: Hx Gastroesophageal Reflux Disease, Hx Ulcer Musculoskeletal Medical History: Reports Hx Arthritis - Back & legs Psychiatric Medical History: Reports: Hx Anxiety, Hx Depression, Hx Schizophrenia Past Surgical History: Reports: Hx Cholecystectomy, Hx Gynecologic Surgery - Pelvic abscess surgery, Hx Hysterectomy, Hx Orthopedic Surgery - Cervical fusion, Hx Tubal Ligation, Other - Cataract surgery - Immunizations Immunizations up to date: Yes Hx Diphtheria, Pertussis, Tetanus Vaccination: No - unknown Hx Pneumococcal Vaccination: 08/12/09 Review of Systems - Review of Systems Constitutional: No symptoms reported EENT: See HPI, Throat pain Cardiovascular: No symptoms reported Respiratory: See HPI, Cough Gastrointestinal: Constipation - Patient states last BM was 2 days ago. Reports she does have problems with constipation. Genitourinary: No symptoms reported Female Genitourinary: No symptoms reported Musculoskeletal: No symptoms reported Skin: No symptoms reported Hematologic/Lymphatic: No symptoms reported Neurological/Psychological: No symptoms reported -: Yes All other systems reviewed and negative Physical Exam - Vital signs Vitals: Temp Pulse Resp BP Pulse Ox 98.6 F 123 H 26 H 100/71 90 L 09/20/19 17:25 09/20/19 17:25 09/20/19 17:25 09/20/19 17:25 09/20/19 17:25 - HEENT Head: Normocephalic, Atraumatic Eyes: Normal Pupils: PERRL Pharynx: Erythema, Other - Hoarse - Respiratory Respiratory status: Tachypnea Chest status: Nontender Breath sounds: Rhonchi, Wheezing Chest palpation: Normal - Cardiovascular Rhythm: Tachycardia Heart sounds: Normal auscultation Murmur: No - Abdominal Distension: Distended, Tympanitic. No: Fluid wave Bowel sounds: Normal Tenderness: Nontender - Back Back: Other - Severe thoracic kyphosis - Extremities General upper extremity: Normal inspection. No: Edema General lower extremity: Normal inspection. No: Edema - Neurological Neuro grossly intact: Yes Cognition: Normal Orientation: AAOx4 Speech: Normal - Psychological Associated symptoms: Normal affect, Normal mood - Skin Skin Temperature: Warm Skin Moisture: Dry Skin Color: Normal Course - Vital Signs Vital signs: Temp Pulse Resp BP Pulse Ox 98.6 F 123 H 20 112/81 95 09/20/19 17:25 09/20/19 17:25 09/20/19 20:01 09/20/19 20:01 09/20/19 20:01 - Laboratory Result Diagrams: 09/20/19 18:30 09/20/19 18:30 Laboratory results interpreted by me: 09/20/19 09/20/19 18:30 18:30 Hgb 11.2 L Hct 34.9 L MCV 76 L MCH 24.2 L RDW 16.9 H Seg Neutrophils % 79.6 H Potassium 3.3 L Carbon Dioxide 32 H Total Protein 8.3 H - Diagnostic Test Radiology reviewed: Image reviewed, Reports reviewed - Chest x-ray shows bilateral airspace opacities with consolidation and atelectasis at the lung bases. Abdominal film shows nonspecific mild gaseous distention with no evidence for bowel obstruction. - EKG Interpretation by Co EKG shows normal: Sinus rhythm, [place], Intervals, QRS Complexes, ST-T Waves Rate: Tachycardia - 113 Voltage: Consistant with LVH When compared to previous EKG there are: No significant change Discharge - Discharge Clinical Impression: Acute exacerbation of chronic obstructive pulmonary disease (COPD), Hypoxia, Laryngitis, Tachycardia Pneumonia Qualifiers: Pneumonia type: due to unspecified organism Laterality: bilateral Lung location: lower lobe of lung Qualified Code(s): J18.9 - Pneumonia, unspecified organism Condition: Stable Disposition: ADMITTED INPATIENT Admitting Provider: Roberto Jacob covering Unit Admitted: Telemetry Referrals: PB FERRARO MD [Primary Care Provider] - Follow up as needed Scribe Attestation: 09/20/19 21:03 I personally performed the services described in the documentation, reviewed and edited the documentation which was dictated to the scribe in my presence, and it accurately records my words and actions. I personally performed the services described in the documentation, reviewed and edited the documentation which was dictated to the scribe in my presence, and it accurately records my words and actions.
--- NOTE | 2019-09-20 19:57 | RADIOLOGY REPORT (SQ) ---
EXAM DESCRIPTION: CHEST SINGLE VIEW COMPLETED DATE/TIME: 09/20/2019 7:14 pm REASON FOR STUDY: Hypoxia, COPD exacerbation COMPARISON: Chest x-ray 12/30/2017, 02/06/2018. EXAM PARAMETERS: NUMBER OF VIEWS: One view. TECHNIQUE: Single frontal radiographic view of the chest acquired. RADIATION DOSE: NA LIMITATIONS: Patient positioning. FINDINGS: LUNGS AND PLEURA: The patient is rotated in a kyphotic position. There are bibasilar airs pace opacities. No sizable pleural effusion or pneumothorax. MEDIASTINUM AND HILAR STRUCTURES: No masses. Contour normal. HEART AND VASCULAR STRUCTURES: Heart normal in size. Normal vasculature. BONES: There are healed right-sided rib fractures. HARDWARE: Partially visualized orthopedic hardware at the lower cervical spine. OTHER: There is gaseous distension of the bowel loops at the visualized abdomen. IMPRESSION: 1. Bibasilar airspace opacities, may be secondary to atelectasis or pneumonia. 2. Gaseous distension of the bowel loops at the visualized abdomen. Dedicated abdominal imaging as c linically warranted. TECHNICAL DOCUMENTATION: JOB ID: [id number]-64 2010 [employer]- All Rights Reserved Reading location - IP/workstation name: [email or web address]
--- NOTE | 2019-09-20 20:34 | EKG REPORT ---
SEVERITY:- BORDERLINE ECG - SINUS TACHYCARDIA LVH BY VOLTAGE LATERAL Q WAVES, PROBABLY DUE TO LVH : Confirmed by: Tammy Hendrix MD 20-Sep-2019 20:33:28
--- NOTE | 2019-09-20 21:56 | RADIOLOGY REPORT (SQ) ---
EXAM DESCRIPTION: XR CHEST 1 VIEW COMPLETED DATE/TME: 09/20/2019 20:50 CLINICAL HISTORY: Dyspnea, shortness of breath, gaseous distention - lateral view only COMPARISON: Same day frontal view chest. FINDINGS: Single lateral view of the chest is submitted. Lung volumes are low. This limits detail. There is atelectasis and consolidation at each lung base. Anterior cervical spine hardware is present but detail is limited. There is mild distention of loops of gas-filled bowel. IMPRESSION: Consolidation and atelectasis is seen at the lung bases. Detail is limited.
--- NOTE | 2019-09-20 22:03 | RADIOLOGY REPORT (SQ) ---
EXAM DESCRIPTION: [employer]: XR ABDOMEN 2 VIEWS SUPINE ERECT Views: 2 CLINICAL HISTORY: 69 years Female; Dyspnea, shortness of breath, gaseous distention ; COMPARISON: CT 03/04/2019 FINDINGS: Supine and erect AP abdomen: There is mild gaseous distention of the colon and small amount of gas in several small bowel segments, without distention. Minimal air-fluid levels. No free air. No pneumatosis. Right upper quadrant surgical clips are noted. Calcifications up to 7 mm diameter are noted in the region of the left kidney, likely renal calculi. IMPRESSION: 1. Nonspecific mild gaseous distention. No evidence for bowel obstruction.
[2019-09-20] MEDS ORDERED: LEVOFLOXACIN 750 MG/D5W RTU 750 MG/150 ML RTUPB IV ONE (22:17)
--- NOTE | 2019-09-20 22:19 | RADIOLOGY REPORT (SQ) ---
EXAM DESCRIPTION: XR CHEST 1 VIEW COMPLETED DATE/TME: 09/20/2019 00:00 CLINICAL HISTORY: 69 years, Female, STANDING BETTER INSPIRATION PER MD COMPARISON: Chest x-ray from 7:13 PM of today's date NUMBER OF VIEWS: 1 TECHNIQUE: Standing AP view of the chest LIMITATIONS: None. FINDINGS: The heart size is normal. Osteopenia. Low lung volumes with bibasilar subsegmental atelectasis. No pneumothorax. Air-filled loops of bowel in the upper abdomen. Postsurgical change cervical spine IMPRESSION: Little interval change on the standing AP view copyright 2010 [employer] [facility] [employer]- All Rights Reserved
[2019-09-21] MEDS: ENOXAPARIN SODIUM INJ 40 MG/0.4 ML DISP.SYRIN SUBCUT SCH ×2 (00:18→09:50)
[2019-09-21] MEDS: CEFTRIAXONE 1 GM/D5W RTU 1 G/50 ML RTUPB IV SCH ×2 (00:19→22:28)
[2019-09-21 00:47] LABS: APPEARANCE,URINE SLIGHTLY-CLOUDY; BILIRUBIN,URINE NEGATIVE (NEGATIVE); COLOR,URINE YELLOW; GLUCOSE, URINE NEGATIVE (NEGATIVE); KETONES,URINE NEGATIVE (NEGATIVE); LEUKOCYTE ESTERASE,URINE NEGATIVE (NEGATIVE); NITRITE,URINE NEGATIVE (NEGATIVE); PROTEIN,URINE NEGATIVE (NEGATIVE); URINE SPECIFIC GRAVITY 1.009; UROBILINOGEN,URINE NEGATIVE mg/dL (<2.0)
[2019-09-21] MEDS: RINGERS SOLUTION,LACTATED 1,000 ML IV PRN ×2 (00:49→13:15)
[2019-09-21 06:54] LABS: ABSOLUTE LYMPHOCYTES (AUTO) 0.7 10^3/uL (0.5-4.7); ABSOLUTE MONOCYTES (AUTO) 0.2 10^3/uL (0.1-1.4); ABSOLUTE NEUT (AUTO) 10.1 10^3/uL (1.7-8.2); BASOPHILS % (AUTO) 0.2 % (0-2); HEMATOCRIT 28.3 % (36.0-47.0); LYMPHOCYTES % (AUTO) 6.4 % (13-45); MEAN CORPUSCULAR HEMOGLOBIN 23.8 pg (27.0-33.4); MEAN CORPUSCULAR HGB CONC 31.7 g/dL (32.0-36.0); MEAN CORPUSCULAR VOLUME 75 fl (80-97); MONOCYTES % (AUTO) 1.7 % (3-13); PLATELET COUNT 270 10^3/uL (150-450); RED BLOOD COUNT 3.77 10^6/uL (3.72-5.28); RED CELL DISTRIBUTION WIDTH 16.6 % (11.5-14.0); SEGMENTED NEUTROPHILS % (AUTO) 91.7 % (42-78); TOTAL CELLS COUNTED % (AUTO) 100 %
[2019-09-21 07:02] LABS: ALBUMIN 3.4 g/dL (3.5-5.0); ALKALINE PHOSPHATASE 69 U/L (38-126); ANION GAP 8 (5-19); ASPARTATE AMINO TRANSFERASE 18 U/L (14-36); BILIRUBIN,TOTAL 0.2 mg/dL (0.2-1.3); BLOOD UREA NITROGEN 12 mg/dL (7-20); CALCIUM 8.6 mg/dL (8.4-10.2); CARBON DIOXIDE 26 mmol/L (22-30); CHLORIDE 107 mmol/L (98-107); GLUCOSE 112 mg/dL (75-110); POTASSIUM 4.2 mmol/L (3.6-5.0); TOTAL PROTEIN 6.6 g/dL (6.3-8.2)
[2019-09-21] MEDS: LEVOFLOXACIN 750 MG/D5W RTU 750 MG/150 ML RTUPB IV SCH (23:59)
[2019-09-22 05:06] LABS: ABSOLUTE BASOPHILS # (AUTO) 0.1 10^3/uL (0.0-0.2); ABSOLUTE EOSINOPHILS # (AUTO) 0.2 10^3/uL (0.0-0.6); ABSOLUTE LYMPHOCYTES (AUTO) 1.5 10^3/uL (0.5-4.7); ABSOLUTE MONOCYTES (AUTO) 0.4 10^3/uL (0.1-1.4); ABSOLUTE NEUT (AUTO) 5.3 10^3/uL (1.7-8.2); BASOPHILS % (AUTO) 0.7 % (0-2); EOSINOPHILS % (AUTO) 2.7 % (0-6); HEMOGLOBIN 9.7 g/dL (12.0-15.5); LYMPHOCYTES % (AUTO) 20.2 % (13-45); MEAN CORPUSCULAR HEMOGLOBIN 24.3 pg (27.0-33.4); MEAN CORPUSCULAR HGB CONC 32.4 g/dL (32.0-36.0); MEAN CORPUSCULAR VOLUME 75 fl (80-97); MONOCYTES % (AUTO) 5.2 % (3-13); PLATELET COUNT 256 10^3/uL (150-450); RED CELL DISTRIBUTION WIDTH 16.5 % (11.5-14.0); SEGMENTED NEUTROPHILS % (AUTO) 71.2 % (42-78); TOTAL CELLS COUNTED % (AUTO) 100 %; WHITE BLOOD COUNT 7.5 10^3/uL (4.0-10.5)
[2019-09-22 05:32] LABS: ALBUMIN 3.3 g/dL (3.5-5.0); ALKALINE PHOSPHATASE 73 U/L (38-126); ANION GAP 5 (5-19); ASPARTATE AMINO TRANSFERASE 21 U/L (14-36); BILIRUBIN,TOTAL 0.4 mg/dL (0.2-1.3); BLOOD UREA NITROGEN 14 mg/dL (7-20); CARBON DIOXIDE 33 mmol/L (22-30); CHLORIDE 102 mmol/L (98-107); GLUCOSE 76 mg/dL (75-110); POTASSIUM 4.4 mmol/L (3.6-5.0); TOTAL PROTEIN 6.5 g/dL (6.3-8.2)
[2019-09-22] MEDS: RINGERS SOLUTION,LACTATED 1,000 ML IV PRN ×2 (06:17→22:01)
--- NOTE | 2019-09-22 08:34 | PDOC H&P ---
History of Present Illness Admission Date/PCP: 09/20/19 22:33 PBPATRICE FERRARO Patient complains of: Cough History of Present Illness: DIPESH BRAUN is a 69 year old female known to my practice who presented with worsening cough. She reported associated sore throat and hoarseness. She denied any definite chills or fever. She reported associated chest pain with coughing. Her symptoms have worsen over the last two weeks. Her initial ED evaluation was significant for hypoxemia, tachycardia, and chest X ray finding of basal consolidation and atelectasis. She was advised hospitalization for further evaluation and management. Her morbidities are as listed below. Past Medical History Cardiac Medical History: Reports: Hyperlipidema Pulmonary Medical History: Reports: Bronchitis, Chronic Obstructive Pulmonary Disease (COPD), Pneumonia - hx of Neurological Medical History: Reports: Migraine Renal/ Medical History: GI Medical History: Reports: Gastroesophageal Reflux Disease Musculoskeltal Medical History: Reports: Arthritis - Back & legs Psychiatric Medical History: Reports: Depression Hematology: Reports: Anemia - Thalassemia trait, Sickle Cell Disease, Bleeding Tendencies Past Surgical History Past Surgical History: Reports: Cholecystectomy, Hysterectomy, Orthopedic Surgery - Cervical fusion, Tubal Ligation, Other - Cataract surgery Denies: Amputation Social History Smoking Status: Former Smoker Electronic Cigarette use?: No Frequency of Alcohol Use: None Hx Recreational Drug Use: No Drugs: None Hx Prescription Drug Abuse: No - Advance Directive Resuscitation Status: Full Code Family History Family History: Reviewed & Not Pertinent, CVA, Hypertension Parental Family History Reviewed: Yes Children Family History Reviewed: Yes Sibling(s) Family History Reviewed.: Yes Medication/Allergy Home Medications: Doxepin HCl 150 mg PO QHS 09/21/19 Duloxetine HCl [Cymbalta 30 mg Capsule.dr] 30 mg PO DAILY 09/21/19 Fluticasone/Umeclidin/Vilanter [Trelegy 100-62.5-25 Mcg Ellipta 14 Dose/Dpi] 1 puff IH DAILY 09/21/19 Gabapentin [Neurontin 300 mg Capsule] 300 mg PO Q8 09/21/19 Ipratropium/Albuterol Sulfate [Combivent Respimat 4 gm Mdi] 1 puff IH Q6 09/21/19 Linaclotide [Linzess 145 Mcg Capsule] 145 mcg PO DAILY 09/21/19 Mirabegron [Myrbetriq] 25 mg PO DAILY 09/21/19 Nifedipine [Nifedipine ER] 30 mg PO DAILY 09/21/19 Omeprazole 40 mg PO DAILY 09/21/19 Allergies/Adverse Reactions: No Known Allergies Allergy (Verified 03/04/19 12:46) Review of Systems Constitutional: PRESENT: fatigue, weakness Eyes: ABSENT: visual disturbances Ears: ABSENT: hearing changes Nose, Mouth, and Throat: PRESENT: sore throat. ABSENT: headache(s), vertigo Cardiovascular: PRESENT: chest pain - with coughing Respiratory: PRESENT: cough Gastrointestinal: ABSENT: abdominal pain, constipation, diarrhea, hematemesis, hematochezia, nausea, vomiting Genitourinary: ABSENT: dysuria, hematuria Musculoskeletal: ABSENT: joint swelling Integumentary: ABSENT: rash, wounds Neurological: ABSENT: abnormal gait, abnormal speech, confusion, dizziness, focal weakness, syncope Psychiatric: ABSENT: anxiety, depression, homidical ideation, suicidal ideation Endocrine: ABSENT: cold intolerance, heat intolerance, polydipsia, polyuria Hematologic/Lymphatic: ABSENT: easy bleeding, easy bruising, lymphadenopathy Allergic/Immunologic: ABSENT: seasonal rhinorrhea Physical Exam Vital Signs: Temp Pulse Resp BP Pulse Ox 98.2 F 104 H 19 119/71 93 09/21/19 03:48 09/21/19 06:46 09/21/19 03:48 09/21/19 03:48 09/21/19 03:48 Intake & Output 09/20/19 09/21/19 09/22/19 06:59 06:59 06:59 Intake Total 1250 Balance 1250 Weight 65.7 kg General appearance: PRESENT: no acute distress, well-developed, well-nourished Head exam: PRESENT: atraumatic, normocephalic Eye exam: PRESENT: conjunctiva pink, EOMI, PERRLA. ABSENT: scleral icterus Ear exam: PRESENT: normal external ear exam Mouth exam: PRESENT: moist Neck exam: PRESENT: full ROM. ABSENT: carotid bruit, JVD, lymphadenopathy, thyromegaly Respiratory exam: PRESENT: decreased breath sounds - at lung bases Cardiovascular exam: PRESENT: RRR. ABSENT: diastolic murmur, rubs, systolic murmur Vascular exam: ABSENT: pallor GI/Abdominal exam: PRESENT: normal bowel sounds, soft. ABSENT: distended, guarding, mass, organolmegaly, rebound, tenderness Rectal exam: PRESENT: deferred Extremities exam: ABSENT: pedal edema Musculoskeletal exam: PRESENT: deformity Neurological exam: PRESENT: alert, awake, oriented to person, oriented to place, oriented to time, oriented to situation, CN II-XII grossly intact. ABSENT: motor sensory deficit Psychiatric exam: PRESENT: appropriate affect, normal mood. ABSENT: homicidal ideation, suicidal ideation Skin exam: PRESENT: dry, warm Results Laboratory Results: 09/21/19 06:21 09/21/19 06:21 09/20/19 09/20/19 09/21/19 18:30 18:30 00:10 WBC 9.2 RBC 4.61 Hgb 11.2 L Hct 34.9 L MCV 76 L MCH 24.2 L MCHC 32.0 RDW 16.9 H Plt Count 312 Seg Neutrophils % 79.6 H Sodium 142.1 Potassium 3.3 L Chloride 101 Carbon Dioxide 32 H Anion Gap 9 BUN 12 Creatinine 0.89 Est GFR ( Amer) > 60 Glucose 110 Calcium 9.5 Total Bilirubin 0.4 AST 21 Alkaline Phosphatase 94 Total Protein 8.3 H Albumin 4.3 Urine Color YELLOW Urine Appearance SLIGHTLY-CLOUDY Urine pH 5.0 Ur Specific [place] 1.009 Urine Protein NEGATIVE Urine Glucose (UA) NEGATIVE Urine Ketones NEGATIVE Urine Blood LARGE H Urine Nitrite NEGATIVE Ur Leukocyte Esterase NEGATIVE Urine WBC (Auto) 3 Urine RBC (Auto) >182 09/21/19 09/21/19 06:21 06:21 WBC 11.0 H RBC 3.77 Hgb 9.0 L D Hct 28.3 L MCV 75 L MCH 23.8 L MCHC 31.7 L RDW 16.6 H Plt Count 270 Seg Neutrophils % 91.7 H Sodium 141.2 Potassium 4.2 Chloride 107 Carbon Dioxide 26 Anion Gap 8 BUN 12 Creatinine 0.65 Est GFR ( Amer) > 60 Glucose 112 H Calcium 8.6 Total Bilirubin 0.2 AST 18 Alkaline Phosphatase 69 Total Protein 6.6 Albumin 3.4 L Urine Color Urine Appearance Urine pH Ur Specific [place] Urine Protein Urine Glucose (UA) Urine Ketones Urine Blood Urine Nitrite Ur Leukocyte Esterase Urine WBC (Auto) Urine RBC (Auto) 09/20/19 18:30 Troponin I < 0.012 NT-Pro-B Natriuret Pep 45 Impressions: Abdomen X-Ray 09/20/19 20:50 IMPRESSION: 1. Nonspecific mild gaseous distention. No evidence for bowel obstruction. Chest X-Ray 09/20/19 20:50 IMPRESSION: Consolidation and atelectasis is seen at the lung bases. Detail is limited. Assessment & Plan - Diagnosis (1) Pneumonia Qualifiers: Pneumonia type: due to unspecified organism Laterality: bilateral Lung location: lower lobe of lung Qualified Code(s): J18.9 - Pneumonia, unspecified organism (2) Chronic obstructive pulmonary disease (COPD) Qualifiers: Emphysema type: unspecified (4) GERD (gastroesophageal reflux disease) Qualifiers: Esophagitis presence: without esophagitis Qualified Code(s): K21.9 - Jolie ro-esophageal reflux disease without esophagitis (6) CVA (cerebral vascular accident) Qualifiers: CVA mechanism: unspecified Qualified Code(s): I63.9 - Cerebral infarction, unspecified - Time Time Spent: 50 to 70 Minutes Medications reviewed and adjusted accordingly: Yes Anticipated discharge: Home Within: Other - Inpatient Certification Based on my medical assessment, after consideration of the patient's comorbidities, presenting symptoms, or acuity I expect that the services needed warrant INPATIENT care.: Yes I certify that my determination is in accordance with my understanding of Medicare's requirements for reasonable and necessary INPATIENT services [42 CFR 412.3e].: Yes Medical Necessity: Significant Comorbidiites Make Outpatient Treatment Too Risky, Need Close Monitoring Due to Risk of Patient Decompensation, Need For IV Fluids, Need For Continuous Telemetry Monitoring, Need for IV Antibiotics, Risk of Complication if Not Cared For in Hospital, Risk of Diagnosis Which Will Require Inpatient Eval/Care/Monitoring Post Hospital Care: D/C Director Of Education Documentation - Plan Summary Plan Summary: See admitting attending physician orders for care plan details.
--- NOTE | 2019-09-22 08:40 | PDOC PROGRESS REPORT ---
Subjective Progress Note for:: 09/22/19 Subjective:: She reported persistence of her cough but improved breathing. No fever or chills. No nausea, vomiting, or diarrhea. Reason For Visit: PNEUMONIA Physical Exam Vital Signs: Temp Pulse Resp BP Pulse Ox 98.4 F 87 17 115/78 99 09/22/19 07:37 09/22/19 07:37 09/22/19 07:37 09/22/19 07:37 09/22/19 07:37 Intake & Output 09/21/19 09/22/19 09/23/19 06:59 06:59 06:59 Intake Total 1250 3305 Output Total 300 Balance 1250 3005 Weight 65.7 kg 64.3 kg General appearance: PRESENT: no acute distress Head exam: PRESENT: atraumatic, normocephalic Eye exam: PRESENT: conjunctiva pink. ABSENT: scleral icterus Ear exam: PRESENT: normal external ear exam Mouth exam: PRESENT: moist Respiratory exam: PRESENT: decreased breath sounds - at lung bases Cardiovascular exam: PRESENT: RRR. ABSENT: diastolic murmur, rubs, systolic murmur Vascular exam: ABSENT: pallor GI/Abdominal exam: PRESENT: normal bowel sounds, soft. ABSENT: distended, guarding, mass, organolmegaly, rebound, tenderness Extremities exam: ABSENT: pedal edema Musculoskeletal exam: PRESENT: deformity - related to multiple joints involvement with arthritis Neurological exam: PRESENT: alert, awake, oriented to person, oriented to place, oriented to time, oriented to situation, CN II-XII grossly intact. ABSENT: motor sensory deficit Psychiatric exam: PRESENT: appropriate affect, normal mood. ABSENT: homicidal ideation, suicidal ideation Skin exam: PRESENT: dry, warm Results Laboratory Results: 09/22/19 04:12 09/22/19 04:12 09/22/19 09/22/19 04:12 04:12 WBC 7.5 RBC 4.00 Hgb 9.7 L Hct 30.0 L MCV 75 L MCH 24.3 L MCHC 32.4 RDW 16.5 H Plt Count 256 Seg Neutrophils % 71.2 Sodium 139.6 Potassium 4.4 Chloride 102 Carbon Dioxide 33 H Anion Gap 5 BUN 14 Creatinine 0.86 Est GFR ( Amer) > 60 Glucose 76 Calcium 9.0 Total Bilirubin 0.4 AST 21 Alkaline Phosphatase 73 Total Protein 6.5 Albumin 3.3 L 09/20/19 22:55 Blood Blood Culture (PCR) - Final 09/20/19 18:30 Troponin I < 0.012 NT-Pro-B Natriuret Pep 45 Impressions: Abdomen X-Ray 09/20/19 20:50 IMPRESSION: 1. Nonspecific mild gaseous distention. No evidence for bowel obstruction. Chest X-Ray 09/20/19 20:50 IMPRESSION: Consolidation and atelectasis is seen at the lung bases. Detail is limited. Assessment & Plan - Diagnosis (1) Pneumonia Qualifiers: Pneumonia type: due to unspecified organism Laterality: bilateral Lung location: lower lobe of lung Qualified Code(s): J18.9 - Pneumonia, unspecified organism Is this a current diagnosis for this admission?: Yes (2) Chronic obstructive pulmonary disease (COPD) Qualifiers: Emphysema type: unspecified Is this a current diagnosis for this admission?: Yes (3) Hyperlipidemia Qualifiers: Hyperlipidemia type: unspecified Qualified Code(s): E78.5 - Hyperlipidemia, unspecified Is this a current diagnosis for this admission?: Yes (4) GERD (gastroesophageal reflux disease) Qualifiers: Esophagitis presence: without esophagitis Qualified Code(s): K21.9 - Gastro-esophageal reflux disease without esophagitis Is this a current diagnosis for this admission?: Yes (5) Anxiety and depression Is this a current diagnosis for this admission?: Yes (6) CVA (cerebral vascular accident) Qualifiers: CVA mechanism: unspecified Qualified Code(s): I63.9 - Cerebral infarction, unspecified Is this a current diagnosis for this admission?: Yes - Time Time Spent with patient: 25-34 minutes Level of Care: IMCU Medications reviewed and adjusted accordingly: Yes Anticipated discharge: Home Within: Other - Inpatient Certification Based on my medical assessment, after consideration of the patient's comorbidities, presenting symptoms, or acuity I expect that the services needed warrant INPATIENT care.: Yes I certify that my determination is in accordance with my understanding of Medicare's requirements for reasonable and necessary INPATIENT services [42 CFR 412.3e].: Yes Medical Necessity: Significant Comorbidiites Make Outpatient Treatment Too Risky, Need Close Monitoring Due to Risk of Patient Decompensation, Need For IV Fluids, Need For Continuous Telemetry Monitoring, Need for IV Antibiotics, Risk of Complication if Not Cared For in Hospital, Risk of Diagnosis Which Will Require Inpatient Eval/Care/Monitoring Post Hospital Care: D/C Internal Control Manager Documentation - Plan Summary Plan Summary: Continue IV Rocephin and Levofloxacin coverage. Maintain on all other current medication management. Encouraged bedside Flutter and incentive spirometer usage.
[2019-09-22] MEDS: IPRATROPIUM/ALBUTEROL 0.5-2.5 MG/3 ML AMPUL NEB PRN (10:51)
[2019-09-22] MEDS: ENOXAPARIN SODIUM INJ 40 MG/0.4 ML DISP.SYRIN SUBCUT SCH (10:57)
[2019-09-22] MEDS: ACETAMINOPHEN 325 MG TABLET PO PRN (14:30)
--- NOTE | 2019-09-22 16:16 | CDI QUERY ---
<URIEL RUGGIERO - Last Filed: 09/22/19 16:15> CDI Query CDI Review: Dear RONAN, To better reflect your patients severity of illness, morbidity, and resource utilization Please LINK any condition to present on admission, if applicable. The terms probable, suspected, likely, possible or still to be ruled out may be used. If you agree, please add to the Progress Notes and Discharge Summary Query Clinical indicators HISTORY OF 3 CVA WITH LEFT HEMIPARESIS? HISTORY CVA OTHER 09/22 PROGRESS NOTE: (6) CVA (cerebral vascular accident) Is this a current diagnosis for this admission?: Yes Neurological exam: PRESENT: alert, awake, oriented to person, oriented to place, oriented to time, oriented to situation, CN II-XII grossly intact. 3 prior strokes resulting in left-sided weakness Thank you, URIEL Clinical Documentation [facility] Office [phone] <PB FERRARO - Last Filed: 09/22/19 18:19> CDI Query Agree with Query: No - HISTORY of CVA with left hemiparesis is not current acute illness with this admission
[2019-09-22] MEDS: CEFTRIAXONE 1 GM/D5W RTU 1 G/50 ML RTUPB IV SCH (22:00)
[2019-09-22] MEDS: LEVOFLOXACIN 750 MG/D5W RTU 750 MG/150 ML RTUPB IV SCH (22:57)
[2019-09-23 05:27] LABS: ABSOLUTE EOSINOPHILS # (AUTO) 0.2 10^3/uL (0.0-0.6); ABSOLUTE LYMPHOCYTES (AUTO) 1.4 10^3/uL (0.5-4.7); ABSOLUTE MONOCYTES (AUTO) 0.5 10^3/uL (0.1-1.4); ABSOLUTE NEUT (AUTO) 5.4 10^3/uL (1.7-8.2); BASOPHILS % (AUTO) 0.5 % (0-2); EOSINOPHILS % (AUTO) 3.1 % (0-6); HEMATOCRIT 32.5 % (36.0-47.0); HEMOGLOBIN 10.4 g/dL (12.0-15.5); MEAN CORPUSCULAR HEMOGLOBIN 24.1 pg (27.0-33.4); MEAN CORPUSCULAR HGB CONC 32.1 g/dL (32.0-36.0); MEAN CORPUSCULAR VOLUME 75 fl (80-97); MONOCYTES % (AUTO) 6.5 % (3-13); PLATELET COUNT 277 10^3/uL (150-450); RED BLOOD COUNT 4.33 10^6/uL (3.72-5.28); RED CELL DISTRIBUTION WIDTH 16.7 % (11.5-14.0); SEGMENTED NEUTROPHILS % (AUTO) 71.9 % (42-78); TOTAL CELLS COUNTED % (AUTO) 100 %; WHITE BLOOD COUNT 7.5 10^3/uL (4.0-10.5)
[2019-09-23 05:41] LABS: ALBUMIN 3.4 g/dL (3.5-5.0); ALKALINE PHOSPHATASE 76 U/L (38-126); ANION GAP 6 (5-19); ASPARTATE AMINO TRANSFERASE 23 U/L (14-36); BILIRUBIN,TOTAL 0.4 mg/dL (0.2-1.3); BLOOD UREA NITROGEN 12 mg/dL (7-20); CALCIUM 9.2 mg/dL (8.4-10.2); CARBON DIOXIDE 34 mmol/L (22-30); CHLORIDE 100 mmol/L (98-107); GLUCOSE 84 mg/dL (75-110); TOTAL PROTEIN 6.6 g/dL (6.3-8.2)
[2019-09-23] MEDS: ENOXAPARIN SODIUM INJ 40 MG/0.4 ML DISP.SYRIN SUBCUT SCH (09:40)
[2019-09-23] MEDS: IPRATROPIUM/ALBUTEROL 0.5-2.5 MG/3 ML AMPUL NEB PRN (11:04)
[2019-09-23] MEDS: CEFTRIAXONE 1 GM/D5W RTU 1 G/50 ML RTUPB IV SCH (22:03)
[2019-09-23] MEDS: ACETAMINOPHEN 325 MG TABLET PO PRN (22:18)
[2019-09-23] MEDS: LEVOFLOXACIN 750 MG/D5W RTU 750 MG/150 ML RTUPB IV SCH (23:18)
--- NOTE | 2019-09-23 23:59 | PDOC PROGRESS REPORT ---
Subjective Progress Note for:: 09/23/19 Subjective:: She reported improvement in her cough and breathing. No chest pain. No fever or chills. No nausea, vomiting, or diarrhea. Reason For Visit: PNEUMONIA Physical Exam Vital Signs: Temp Pulse Resp BP Pulse Ox 98.5 F 102 H 17 103/67 100 09/23/19 15:32 09/23/19 15:32 09/23/19 15:32 09/23/19 15:32 09/23/19 15:32 Intake & Output 09/22/19 09/23/19 09/24/19 06:59 06:59 06:59 Intake Total 3305 2040 840 Output Total 300 1300 300 Balance 3005 740 540 Weight 64.3 kg 57.6 kg Physical Exam: General appearance: PRESENT: no acute distress Head exam: PRESENT: atraumatic, normocephalic Eye exam: PRESENT: conjunctiva pink. ABSENT: pallor, scleral icterus Ear exam: PRESENT: normal external ear exam Mouth exam: PRESENT: moist Respiratory exam: PRESENT: decreased breath sounds - at lung bases Cardiovascular exam: PRESENT: RRR. ABSENT: diastolic murmur, rubs, systolic murmur GI/Abdominal exam: PRESENT: normal bowel sounds, soft. ABSENT: distended, guarding, mass, organomegaly, rebound, tenderness Extremities exam: ABSENT: pedal edema Musculoskeletal exam: PRESENT: deformity - related to multiple joints involv ement with arthritis Neurological exam: PRESENT: alert, awake, oriented to person, oriented to place, oriented to time, oriented to situation, CN II-XII grossly intact. ABSENT: motor sensory deficit Psychiatric exam: PRESENT: appropriate affect, normal mood. ABSENT: homicidal ideation, suicidal ideation Skin exam: PRESENT: dry, warm Results Laboratory Results: 09/23/19 04:41 09/23/19 04:41 09/23/19 09/23/19 04:41 04:41 WBC 7.5 RBC 4.33 Hgb 10.4 L Hct 32.5 L MCV 75 L MCH 24.1 L MCHC 32.1 RDW 16.7 H Plt Count 277 Seg Neutrophils % 71.9 Sodium 139.7 Potassium 4.0 Chloride 100 Carbon Dioxide 34 H Anion Gap 6 BUN 12 Creatinine 0.84 Est GFR ( Amer) > 60 Glucose 84 Calcium 9.2 Total Bilirubin 0.4 AST 23 Alkaline Phosphatase 76 Total Protein 6.6 Albumin 3.4 L 09/20/19 22:55 Blood Blood Culture (PCR) - Final 09/20/19 22:55 Blood Blood Culture - Final Bacillus Sp. Not Anthracis 09/20/19 18:30 Troponin I < 0.012 NT-Pro-B Natriuret Pep 45 Impressions: Abdomen X-Ray 09/20/19 20:50 IMPRESSION: 1. Nonspecific mild gaseous distention. No evidence for bowel obstruction. Chest X-Ray 09/20/19 20:50 IMPRESSION: Consolidation and atelectasis is seen at the lung bases. Detail is limited. Assessment & Plan - Diagnosis (1) Pneumonia Qualifiers: Pneumonia type: due to unspecified organism Laterality: bilateral Lung location: lower lobe of lung Qualified Code(s): J18.9 - Pneumonia, unspecified organism Is this a current diagnosis for this admission?: Yes (2) Chronic obstructive pulmonary disease (COPD) Qualifiers: Emphysema type: unspecified Is this a current diagnosis for this admission?: Yes (3) Hyperlipidemia Qualifiers: Hyperlipidemia type: unspecified Qualified Code(s): E78.5 - Hyperlipidemia, unspecified Is this a current diagnosis for this admission?: Yes (4) GERD (gastroesophageal reflux disease) Qualifiers: Esophagitis presence: without esophagitis Qualified Code(s): K21.9 - Gastro-esophageal reflux disease without esophagitis Is this a current diagnosis for this admission?: Yes (5) Anxiety and depression Is this a current diagnosis for this admission?: Yes (6) CVA (cerebral vascular accident) Qualifiers: CVA mechanism: unspecified Qualified Code(s): I63.9 - Cerebral infarction, unspecified Is this a current diagnosis for this admission?: Yes - Time Time Spent with patient: 25-34 minutes Level of Care: IMCU Medications reviewed and adjusted accordingly: Yes Anticipated discharge: Home Within: Other - Inpatient Certification Based on my medical assessment, after consideration of the patient's comorbidities, presenting symptoms, or acuity I expect that the services needed warrant INPATIENT care.: Yes I certify that my determination is in accordance with my understanding of Medicare's requirements for reasonable and necessary INPATIENT services [42 CFR 412.3e].: Yes Medical Necessity: Significant Comorbidiites Make Outpatient Treatment Too Risky, Need Close Monitoring Due to Risk of Patient Decompensation, Need For IV Fluids, Need For Continuous Telemetry Monitoring, Need for IV Antibiotics, Risk of Complication if Not Cared For in Hospital, Risk of Diagnosis Which Will Require Inpatient Eval/Care/Monitoring Post Hospital Care: D/C Separating Machine Operator Documentation - Plan Summary Plan Summary: Continue current antibiotic coverage. Follow up on blood culture findings.
[2019-09-24] MEDS: ENOXAPARIN SODIUM INJ 40 MG/0.4 ML DISP.SYRIN SUBCUT SCH (10:37)
[2019-09-24] MEDS: ACETAMINOPHEN 325 MG TABLET PO PRN ×2 (12:30→17:48)
[2019-09-24] MEDS: RINGERS SOLUTION,LACTATED 1,000 ML IV PRN (12:30)
--- NOTE | 2019-09-24 19:00 | PDOC PROGRESS REPORT ---
Subjective Progress Note for:: 09/24/19 Subjective:: She denied any coughing or difficulty with breathing. No chest pain. No fever or chills. No nausea, vomiting, or diarrhea. Reason For Visit: PNEUMONIA Physical Exam Vital Signs: Temp Pulse Resp BP Pulse Ox 97.3 F 97 16 136/89 H 98 09/24/19 12:14 09/24/19 14:00 09/24/19 12:14 09/24/19 12:14 09/24/19 12:14 Intake & Output 09/23/19 09/24/19 09/25/19 06:59 06:59 06:59 Intake Total 2040 2572 727 Output Total 1300 300 Balance 740 2272 727 Weight 57.6 kg 62.7 kg Physical Exam: General appearance: PRESENT: no acute distress Head exam: PRESENT: atraumatic, normocephalic Eye exam: PRESENT: conjunctiva pink. ABSENT: pallor, scleral icterus Ear exam: PRESENT: normal external ear exam Mouth exam: PRESENT: moist Respiratory exam: PRESENT: decreased breath sounds - at lung bases Cardiovascular exam: PRESENT: RRR. ABSENT: diastolic murmur, rubs, systolic murmur GI/Abdominal exam: PRESENT: normal bowel sounds, soft. ABSENT: distended, guarding, mass, organomegaly, rebound, tenderness Extremities exam: ABSENT: pedal edema Musculoskeletal exam: PRESENT: deformity - related to multiple joints involvemen t with arthritis Neurological exam: PRESENT: alert, awake, oriented to person, oriented to place, oriented to time, oriented to situation, CN II-XII grossly intact. ABSENT: motor sensory deficit Psychiatric exam: PRESENT: appropriate affect, normal mood. ABSENT: homicidal ideation, suicidal ideation Skin exam: PRESENT: dry, warm Results Laboratory Results: 09/23/19 04:41 09/23/19 04:41 09/20/19 18:30 Troponin I < 0.012 NT-Pro-B Natriuret Pep 45 Impressions: Abdomen X-Ray 09/20/19 20:50 IMPRESSION: 1. Nonspecific mild gaseous distention. No evidence for bowel obstruction. Chest X-Ray 09/20/19 20:50 IMPRESSION: Consolidation and atelectasis is seen at the lung bases. Detail is limited. Assessment & Plan - Diagnosis (1) Pneumonia Qualifiers: Pneumonia type: due to unspecified organism Laterality: bilateral Lung location: lower lobe of lung Qualified Code(s): J18.9 - Pneumonia, unspecified organism Is this a current diagnosis for this admission?: Yes (2) Chronic obstructive pulmonary disease (COPD) Qualifiers: Emphysema type: unspecified Is this a current diagnosis for this admission?: Yes (3) Hyperlipidemia Qualifiers: Hyperlipidemia type: unspecified Qualified Code(s): E78.5 - Hyperlipidemia, unspecified Is this a current diagnosis for this admission?: Yes (4) GERD (gastroesophageal reflux disease) Qualifiers: Esophagitis presence: without esophagitis Qualified Code(s): K21.9 - Gastro-esophageal reflux disease without esophagitis Is this a current diagnosis for this admission?: Yes (5) Anxiety and depression Is this a current diagnosis for this admission?: Yes (6) CVA (cerebral vascular accident) Qualifiers: CVA mechanism: unspecified Qualified Code(s): I63.9 - Cerebral infarction, unspecified Is this a current diagnosis for this admission?: No - Time Time Spent with patient: 25-34 minutes Level of Care: IMCU Medications reviewed and adjusted accordingly: Yes Anticipated discharge: Home with Homehealth Within: Other - Inpatient Certification Based on my medical assessment, after consideration of the patient's comorbidities, presenting symptoms, or acuity I expect that the services needed warrant INPATIENT care.: Yes I certify that my determination is in accordance with my understanding of Medicare's requirements for reasonable and necessary INPATIENT services [42 CFR 412.3e].: Yes Medical Necessity: Significant Comorbidiites Make Outpatient Treatment Too Risky, Need Close Monitoring Due to Risk of Patient Decompensation, Need For IV Fluids, Need For Continuous Telemetry Monitoring, Need for IV Antibiotics, Risk of Complication if Not Cared For in Hospital, Risk of Diagnosis Which Will Require Inpatient Eval/Care/Monitoring Post Hospital Care: D/C Premix Operator Concentrate Documentation - Plan Summary Plan Summary: D/C IV Levofloxacin and Ceftriaxone. Start on oral Levofloxacin 750 mg p.o daily and Cefpodoxime 200 mg p.o bid. Patient is aware of possible discharge home tomorrow.
[2019-09-24] MEDS: CEFPODOXIME 200 MG TABLET PO SCH (21:42)
[2019-09-24] MEDS ORDERED: LEVOFLOXACIN 750 MG TABLET PO SCH (22:00)
[2019-09-25] MEDS: RINGERS SOLUTION,LACTATED 1,000 ML IV PRN (05:37)
[2019-09-25] MEDS: ACETAMINOPHEN 325 MG TABLET PO PRN (08:38)
[2019-09-25] MEDS: ENOXAPARIN SODIUM INJ 40 MG/0.4 ML DISP.SYRIN SUBCUT SCH (09:19)
[2019-09-25] MEDS: CEFPODOXIME 200 MG TABLET PO SCH (09:19)
[2019-09-25 14:59] VITALS: BP 112/71
--- NOTE | 2019-09-25 16:00 | PDOC DISCHARGE SUMMARY ---
Impression - Admit/DC Date/PCP Admission Date/Primary Care Provider: 09/20/19 22:33 PB FERRARO Discharge Date: 09/25/19 - Discharge Diagnosis (1) Pneumonia Is this a current diagnosis for this admission?: Yes (2) Chronic obstructive pulmonary disease (COPD) Is this a current diagnosis for this admission?: Yes (3) Hyperlipidemia Is this a current diagnosis for this admission?: Yes (4) GERD (gastroesophageal reflux disease) Is this a current diagnosis for this admission?: Yes (5) Anxiety and depression Is this a current diagnosis for this admission?: Yes (6) CVA (cerebral vascular accident) Is this a current diagnosis for this admission?: No - Assessment Summary: Patient was admitted for bilateral bilateral basilar consolidation suggestive of pneumonia with COPD. She was treated with IV Levofloxacin and Ceftriaxone. She was transition to oral Levofloxacin and Cefepodoxime. she will be discharge home on same for five days. her blood culture remain no growth at the time of her discharge. she will follow up in the office as instructed upon discharge. - Additional Information Resuscitation Status: Full Code Discharge Diet: Cardiac Discharge Activity: Activity As Tolerated Referrals: PB FERRARO MD [Primary Care Provider] - 10/01/19 10:00 am Prescriptions: Levofloxacin [Levaquin 750 mg Tablet] 750 mg PO QHS #5 tablet Cefpodoxime Proxetil [Vantin 200 mg Tablet] 200 mg PO Q12 #10 tablet Home Medications: Doxepin HCl 150 mg PO QHS 09/21/19 Duloxetine HCl [Cymbalta 30 mg Capsule.] 30 mg PO DAILY 09/21/19 Fluticasone/Umeclidin/Vilanter [Trelegy 100-62.5-25 Mcg Ellipta 14 Dose/Dpi] 1 puff IH DAILY 09/21/19 Gabapentin [Neurontin 300 mg Capsule] 300 mg PO Q8 09/21/19 Ipratropium/Albuterol Sulfate [Combivent Respimat 4 gm Mdi] 1 puff IH Q6 09/21/19 Linaclotide [Linzess 145 Mcg Capsule] 145 mcg PO DAILY 09/21/19 Mirabegron [Myrbetriq] 25 mg PO DAILY 09/21/19 Nifedipine [Nifedipine ER] 30 mg PO DAILY 09/21/19 Omeprazole 40 mg PO DAILY 09/21/19 Cefpodoxime Proxetil [Vantin 200 mg Tablet] 200 mg PO Q12 #10 tablet 09/25/19 Levofloxacin [Levaquin 750 mg Tablet] 750 mg PO QHS #5 tablet 09/25/19 History of Present Illiness History of Present Illness: DIPESH BRAUN is a 69 year old female known to my practice who presented with worsening cough. She reported associated sore throat and hoarseness. She denied any definite chills or fever. She reported associated chest pain with coughing. Her symptoms have worsen over the last two weeks. Her initial ED evaluation was significant for hypoxemia, tachycardia, and chest X ray finding of basal consolidation and atelectasis. She was advised hospitalization for further evaluation and management. Her morbidities are as listed below. Hospital Course Hospital Course: Patient was admitted for bilateral bilateral basilar consolidation suggestive of pneumonia with COPD. She was treated with IV Levofloxacin and Ceftriaxone. She was transition to oral Levofloxacin and Cefepodoxime. she will be discharge home on same for five days. her blood culture remain no growth at the time of her discharge. she will follow up in the office as instructed upon discharge. Physical Exam Vital Signs: Temp Pulse Resp BP Pulse Ox 98.2 F 109 H 16 112/71 99 09/25/19 11:37 09/25/19 14:00 09/25/19 11:37 09/25/19 11:37 09/25/19 11:37 Intake & Output 09/24/19 09/25/19 09/26/19 06:59 06:59 06:59 Intake Total 2572 2198 927 Output Total 300 Balance 2272 2198 927 Weight 62.7 kg 62.6 kg General appearance: PRESENT: no acute distress Head exam: PRESENT: atraumatic, normocephalic Eye exam: PRESENT: conjunctiva pink. ABSENT: pallor, scleral icterus Ear exam: PRESENT: normal external ear exam Mouth exam: PRESENT: moist Respiratory exam: PRESENT: decreased breath sounds - at lung bases Cardiovascular exam: PRESENT: RRR. ABSENT: diastolic murmur, rubs, systolic murmur GI/Abdominal exam: PRESENT: normal bowel sounds, soft. ABSENT: distended, guarding, mass, organomegaly, rebound, tenderness Extremities exam: ABSENT: pedal edema Musculoskeletal exam: PRESENT: deformity - related to multiple joints involvement with arthritis Neurological exam: PRESENT: alert, awake, oriented to person, oriented to place, oriented to time, oriented to situation, CN II-XII grossly intact. ABSENT: motor sensory deficit Psychiatric exam: PRESENT: appropriate affect, normal mood. ABSENT: homicidal ideation, suicidal ideation Skin exam: PRESENT: dry, warm Results Laboratory Results: WBC 7.5 10^3/uL (4.0-10.5) 09/23/19 04:41 RBC 4.33 10^6/uL (3.72-5.28) 09/23/19 04:41 Hgb 10.4 g/dL (12.0-15.5) L 09/23/19 04:41 Hct 32.5 % (36.0-47.0) L 09/23/19 04:41 MCV 75 fl (80-97) L 09/23/19 04:41 MCH 24.1 pg (27.0-33.4) L 09/23/19 04:41 MCHC 32.1 g/dL (32.0-36.0) 09/23/19 04:41 RDW 16.7 % (11.5-14.0) H 09/23/19 04:41 Plt Count 277 10^3/uL (150-450) 09/23/19 04:41 Lymph % (Auto) 18.0 % (13-45) 09/23/19 04:41 [place] % (Auto) 6.5 % (3-13) 09/23/19 04:41 Eos % (Auto) 3.1 % (0-6) 09/23/19 04:41 Baso % (Auto) 0.5 % (0-2) 09/23/19 04:41 Absolute Neuts (auto) 5.4 10^3/uL (1.7-8.2) 09/23/19 04:41 Absolute Lymphs (auto) 1.4 10^3/uL (0.5-4.7) 09/23/19 04:41 Absolute Monos (auto) 0.5 10^3/uL (0.1-1.4) 09/23/19 04:41 Absolute Eos (auto) 0.2 10^3/uL (0.0-0.6) 09/23/19 04:41 Absolute Basos (auto) 0.0 10^3/uL (0.0-0.2) 09/23/19 04:41 Seg Neutrophils % 71.9 % (42-78) 09/23/19 04:41 Sodium 139.7 mmol/L (137-145) 09/23/19 04:41 Potassium 4.0 mmol/L (3.6-5.0) 09/23/19 04:41 Chloride 100 mmol/L (98-107) 09/23/19 04:41 Carbon Dioxide 34 mmol/L (22-30) H 09/23/19 04:41 Anion Gap 6 (5-19) 09/23/19 04:41 BUN 12 mg/dL (7-20) 09/23/19 04:41 Creatinine 0.84 mg/dL (0.52-1.25) 09/23/19 04:41 Est GFR ( Amer) > 60 (>60) 09/23/19 04:41 Est GFR (MDRD) Non-Af > 60 (>60) 09/23/19 04:41 Glucose 84 mg/dL (75-110) 09/23/19 04:41 Calcium 9.2 mg/dL (8.4-10.2) 09/23/19 04:41 Total Bilirubin 0.4 mg/dL (0.2-1.3) 09/23/19 04:41 Direct Bilirubin 0.0 mg/dL (0.0-0.4) 09/23/19 04:41 Neonat Total Bilirubin Not Reportable 09/23/19 04:41 Neonat Direct Bilirubin Not Reportable 09/23/19 04:41 Neonat Indirect Bili Not Reportable 09/23/19 04:41 AST 23 U/L (14-36) 09/23/19 04:41 ALT 11 U/L (<35) 09/23/19 04:41 Alkaline Phosphatase 76 U/L (38-126) 09/23/19 04:41 Troponin I < 0.012 ng/mL 09/20/19 18:30 NT-Pro-B Natriuret Pep 45 pg/mL (<125) 09/20/19 18:30 Total Protein 6.6 g/dL (6.3-8.2) 09/23/19 04:41 Albumin 3.4 g/dL (3.5-5.0) L 09/23/19 04:41 Urine Color YELLOW 09/21/19 00:10 Urine Appearance SLIGHTLY-CLOUDY 09/21/19 00:10 Urine pH 5.0 (5.0-9.0) 09/21/19 00:10 Ur Specific [place] 1.009 09/21/19 00:10 Urine Protein NEGATIVE mg/dL (NEGATIVE) 09/21/19 00:10 Urine Glucose (UA) NEGATIVE mg/dL (NEGATIVE) 09/21/19 00:10 Urine Ketones NEGATIVE mg/dL (NEGATIVE) 09/21/19 00:10 Urine Blood LARGE (NEGATIVE) H 09/21/19 00:10 Urine Nitrite NEGATIVE (NEGATIVE) 09/21/19 00:10 Urine Bilirubin NEGATIVE (NEGATIVE) 09/21/19 00:10 Urine Urobilinogen NEGATIVE mg/dL (<2.0) 09/21/19 00:10 Ur Leukocyte Esterase NEGATIVE (NEGATIVE) 09/21/19 00:10 Urine WBC (Auto) 3 /HPF 09/21/19 00:10 Urine RBC (Auto) >182 /HPF 09/21/19 00:10 Urine Bacteria (Auto) TRACE /HPF 09/21/19 00:10 Squamous Epi Cells Auto 2 /HPF 09/21/19 00:10 Urine Mucus (Auto) OCC /LPF 09/21/19 00:10 Urine Ascorbic Acid NEGATIVE (NEGATIVE) 09/21/19 00:10 09/20/19 18:30 Troponin I < 0.012 NT-Pro-B Natriuret Pep 45 Impressions: Chest X-Ray 09/20/19 00:00 IMPRESSION: Little interval change on the standing AP view copyright 2011 [employer]- All Rights Reserved Chest X-Ray 09/20/19 19:02 IMPRESSION: 1. Bibasilar airspace opacities, may be secondary to atelectasis or pneumonia. 2. Gaseous distension of the bowel loops at the visualized abdomen. Dedicated abdominal imaging as clinically warranted. Abdomen X-Ray 09/20/19 20:50 IMPRESSION: 1. Nonspecific mild gaseous distention. No evidence for bowel obstruction. Chest X-Ray 09/20/19 20:50 IMPRESSION: Consolidation and atelectasis is seen at the lung bases. Detail is limited. Plan Health Concerns: Compliance with medication management and continue resolution of her symptoms. Plan of Treatment: Discharged home with antibiotic therapy x 5 days. Goals: Continue antibiotic therapy x 5 days. Time Spent: Less than 30 Minutes Stroke Is this a Stroke Patient?: No Acute Heart Failure - Is this a Heart Failure Patient?: No
== END 2019-09-25 16:30 | disposition home or self-care (01) | DRG 194 ==
LOC: ER 16:26 → EH 22:33 → 3W 09-21 01:00
PROVIDERS: ADMIT Internal Medicine Geriatric Medicine; ATTEND Internal Medicine Geriatric Medicine
DX: J18.9 Pneumonia, unspecified organism (principal); J44.0 Chronic obstructive pulmonary disease with (acute) lower respiratory infection; G81.94 Hemiplegia, unspecified affecting left nondominant side; E78.5 Hyperlipidemia, unspecified; K21.9 Gastro-esophageal reflux disease without esophagitis; F41.9 Anxiety disorder, unspecified; F32.9 Major depressive disorder, single episode, unspecified; D57.3 Sickle-cell trait; E78.00 Pure hypercholesterolemia, unspecified; Z87.891 Personal history of nicotine dependence; Z86.73 Personal history of transient ischemic attack (TIA), and cerebral infarction without residual deficits
CPT/HCPCS: 36415; 71045; 74019; 80053; 81001; 83880; 84484; 85025; 87040; 87077; 87150; 93005; 93010; 94640; 96361; 96374; 96375; 99285; J0696; J1650; J1956; J2405; J2930; J3490; J7030; J7120; J7620

== ENCOUNTER 2019-11-19 10:41 | Emergency (ER) | payer MEDICARE, MEDICAID ==
[2019-11-19] MEDS ORDERED: OXYCODONE-ACETAMINOPHEN 5-325 MG TABLET PO ONE (11:50)
--- NOTE | 2019-11-19 11:58 | ER Document Report ---
ED General - General Chief Complaint: Back Pain Stated Complaint: SHOULDER PAIN, BACK PAIN Time Seen by Provider: 11/19/19 11:28 Primary Care Provider: PB FERRARO MD [Primary Care Provider] - Follow up as needed TRAVEL OUTSIDE OF THE [place] IN LAST 30 DAYS: No - HPI Notes: Patient is a very pleasant 69-year-old female who presents to the emergency department for evaluation of pain in her right neck, right shoulder, right back, as well as swelling in her left foot and ankle. She states that the symptoms of her neck pain have been present for about 2 weeks. Has been getting progressively worse. It hurts to move. She has been trying Tylenol, ibuprofen, without any significant relief. No associated fevers or chills. No nausea or vomiting. She has baseline minimal cough and shortness of breath, secondary to her COPD, which she states is stable. She also states she noted some increased swelling in her foot and ankle. She really does not have pain there, but she does have pain in her more proximal calf. No recent prolonged immobility, although the patient does have a history of stroke. No history of blood clots. - Related Data Allergies/Adverse Reactions: No Known Allergies Allergy (Verified 03/04/19 12:46) Past Medical History - General Information source: Patient - Social History Smoking Status: Current Some Day Smoker Family History: Reviewed & Not Pertinent, CVA, Hypertension Patient has suicidal ideation: No Patient has homicidal ideation: No - Past Medical History Cardiac Medical History: Reports: Hx Hypercholesterolemia Pulmonary Medical History: Reports: Hx Bronchitis, Hx COPD, Hx Pneumonia - hx of Neurological Medical History: Reports: Hx Cerebrovascular Accident - 3 prior strokes resulting in left-sided weakness., Hx Migraine. Denies: Hx Parkinson's Disease Renal/ Medical History: Reports: Hx Kidney Stones. Denies: Hx Peritoneal Dialysis GI Medical History: Reports: Hx Gastroesophageal Reflux Disease, Hx Ulcer Musculoskeletal Medical History: Reports Hx Arthritis - Back & legs Psychiatric Medical History: Reports: Hx Anxiety, Hx Depression, Hx Schizophrenia Past Surgical History: Reports: Hx Cholecystectomy, Hx Gynecologic Surgery - Pelvic abscess surgery, Hx Hysterectomy, Hx Orthopedic Surgery - Cervical fusion, Hx Tubal Ligation, Other - Cataract surgery - Immunizations Immunizations up to date: Yes Hx Diphtheria, Pertussis, Tetanus Vaccination: No - unknown Hx Pneumococcal Vaccination: 08/12/09 Review of Systems - Review of Systems Musculoskeletal: See HPI -: Yes All other systems reviewed and negative Physical Exam - Vital signs Vitals: Temp Pulse Resp BP Pulse Ox 98.4 F 98 18 130/86 H 96 11/19/19 10:45 11/19/19 10:45 11/19/19 10:45 11/19/19 10:45 11/19/19 10:45 - Notes Notes: This is a very pleasant 69-year-old female who appears her stated age in no acute distress. Head is normocephalic and atraumatic. Pupils are equal round, active to light. Oral mucosa is moist. Examination of the neck yields significant tension and tenderness in the right sternocleidomastoid muscle, the paraspinal musculature of the cervical spine, and into the trapezius. Her pain and tenderness, as well as ropey musculature, continues in the paraspinal musculature down to approximately T7. This does reproduce her pain. Heart is regular rate and rhythm, lungs reveal occasional scant expiratory wheeze. Abdomen soft, nontender, active bowel sounds. Extremities without cyanosis or clubbing. She does have 2+ pretibial pitting edema bilaterally, but she has worsened ankle edema on the left compared to the right. She has proximal left calf tenderness, no right calf tenderness noted. Neurovascular intact distally. Skin is warm and dry. Patient is awake alert. She has a facial asymmetry secondary to history of CVA. Otherwise she is awake and alert, moves all 4 extremities spontaneously, and is cooperative with examiner. Course - Re-evaluation Re-evalutation: 11/19/19 11:58 Patient presents to the emergency department for evaluation. It seems likely that most of her pain is musculoskeletal. She has taken Percocet in the past, states that it did help her pain significantly. She is given a Percocet here. I will send her home with a short course of muscle relaxers. In regards to her proximal left calf tenderness, we will evaluate her for a DVT. Patient is notified of the plan. She has no questions or concerns at this time, we will continue to monitor. 11/19/19 14:32 Patient's Doppler is preliminarily read as negative. Patient is feeling improved after the Percocet. I will send her home with muscle relaxers and short course of Percocet. She is told to please be extremely cautious with these medicines as they both can cause dizziness and drowsiness, Percocet can cause constipation. She voiced understanding of his discharge. - Vital Signs Vital signs: Temp Pulse Resp BP Pulse Ox 98.4 F 98 18 130/86 H 96 11/19/19 10:45 11/19/19 10:45 11/19/19 10:45 11/19/19 10:45 11/19/19 10:45 - Diagnostic Test Radiology reviewed: Reports reviewed Discharge - Discharge Clinical Impression: Neck pain on right side, Upper back pain on right side, Edema of left ankle Condition: Stable Disposition: HOME, SELF-CARE Instructions: Muscle Strain ([facility]) Additional Instructions: Moist heat packs to the painful areas. Take pain medication, muscle relaxer as prescribed. As discussed, these can cause dizziness, drowsiness, and the Percocet can cause constipation. Please be extremely careful when taking these medications. You can start with half doses if necessary. Follow-up with your primary care doctor this week. Return to the ER with worsening or new concerning symptoms of any sort. Referrals: PB FERRARO MD [Primary Care Provider] - Follow up as needed
[2019-11-19 14:50] VITALS: BP 116/68
--- NOTE | 2019-11-19 14:52 | RADIOLOGY REPORT (SQ) ---
EXAM DESCRIPTION: VENOUS UNILATERAL LOWER IMAGES COMPLETED DATE/TIME: 11/19/2019 2:42 pm REASON FOR STUDY: Left leg pain, edema COMPARISON: None. TECHNIQUE: Dynamic and static carmona scale and color images acquired of the left leg venous system. Se lected spectral images acquired with additional compression and augmentation maneuvers. The contralat eral common femoral vein and saphenofemoral junction were also imaged. Images stored on PACS. LIMITATIONS: None. FINDINGS: COMMON FEMORAL: Normal phasicity, compression and augmentation. No visualized echogenic ma terial on carmona scale. No defects on color images. FEMORAL: Normal compression and augmentation. No visualized echogenic material on carmona scale. No defe cts on color images. POPLITEAL: Normal compression, augmentation. No visualized echogenic material on carmona scale. No defec ts on color images. CALF VESSELS: Normal compression, augmentation. No visualized echogenic material on carmona scale. No de fects on color images. GSV and SSV: Normal compression, augmentation. No visualized echogenic material on carmona scale. No def ects on color images. ANY DEEP VENOUS INSUFFICIENCY: No. ANY EVIDENCE OF POPLITEAL CYST: No. OTHER: No other significant finding. CONTRALATERAL COMMON FEMORAL VEIN AND SAPHENOFEMORAL JUNCTION: Normal phasicity, compression and augmentation. No visualized echogenic material on carmona scale. No de fects on color images. IMPRESSION: NO EVIDENCE DVT OR SVT IN THE LEFT LEG. TECHNICAL DOCUMENTATION: JOB ID: [id number] 2010 [employer]- All Rights Reserved Reading location - IP/workstation name: [email or web address]
== END 2019-11-19 14:49 | disposition home or self-care (01) ==
LOC: ER 10:41
DX: M54.2 Cervicalgia (principal); M54.6 Pain in thoracic spine; R60.0 Localized edema; M54.9 Dorsalgia, unspecified; M25.511 Pain in right shoulder; M79.89 Other specified soft tissue disorders; J44.9 Chronic obstructive pulmonary disease, unspecified; R05 Cough; R06.02 Shortness of breath; F17.200 Nicotine dependence, unspecified, uncomplicated
CPT/HCPCS: 99284; 93971; A9270

== ENCOUNTER 2020-04-26 11:11 | Emergency (ER) | payer MEDICARE, MEDICAID ==
--- NOTE | 2020-04-26 11:56 | ER Document Report ---
ED Medical Screen (RME) - General Chief Complaint: General Weakness Stated Complaint: HAND PAIN Time Seen by Provider: 04/26/20 11:36 Primary Care Provider: PB FERRARO MD [Primary Care Provider] - Follow up as needed TRAVEL OUTSIDE OF THE [place] IN LAST 30 DAYS: No - HPI Notes: 04/26/20 11:51 70 yr old female with a history of CVA who is not on blood thinners presents to the emergency room with multiple vague complaints today for fatigue, abdominal pain for the last month, bright red blood in stool this morning, bilateral hand pain and a heart rate of 126bpm when she was seen by her neurologist this morning, who advised her to come to the emergency room for further evaluation. Patient states she has had issues with her bilateral hand pain for the last week but has been seen multiple times in the emergency room when reviewing her chart for hand pain. Patient is very slow to respond, she states is related to her fatigue. denies any nausea vomiting but reports generalized abdominal pain I have greeted and performed a rapid initial assessment of this patient. A comprehensive ED assessment and evaluation of the patient, analysis of test results and completion of the medical decision making process will be conducted by additional ED providers. PHYSICAL EXAMINATION: GENERAL: Chronically ill, malnourished and in no acute distress. HEAD: Atraumatic, normocephalic. EYES: Pupils equal round extraocular movements intact, conjunctiva are normal. NECK: Normal range of motion CV: Sinus tachycardia abd: No abdominal tenderness on palpation in all quadrants, no CVA tenderness appreciated bilaterally LUNGS: No respiratory distress NEUROLOGICAL: Normal speech, normal gait. SKIN: Warm, Dry, normal turgor, no rashes or lesions noted. Consulted with Dr. Harry, ER supervising physician who recommended ordering a d-dimer for initial evaluation for tachycardia unexplained reason without being on anticoagulant therapy 04/26/20 12:00 - Related Data Allergies/Adverse Reactions: No Known Allergies Allergy (Verified 04/26/20 11:30) Past Medical History - Social History Chew tobacco use (# tins/day): No Frequency of alcohol use: None Drug Abuse: None - Past Medical History Cardiac Medical History: Reports: Hx Hypercholesterolemia Pulmonary Medical History: Reports: Hx Bronchitis, Hx COPD, Hx Pneumonia - hx of Neurological Medical History: Reports: Hx Cerebrovascular Accident - 3 prior strokes resulting in left-sided weakness., Hx Migraine. Denies: Hx Parkinson's Disease Renal/ Medical History: Reports: Hx Kidney Stones. Denies: Hx Peritoneal Dialysis GI Medical History: Reports: Hx Gastroesophageal Reflux Disease, Hx Ulcer Musculoskeltal Medical History: Reports Hx Arthritis - Back & legs Psychiatric Medical History: Reports: Hx Anxiety, Hx Depression, Hx Schizophrenia Past Surgical History: Reports: Hx Cholecystectomy, Hx Gynecologic Surgery - Pelvic abscess surgery, Hx Hysterectomy, Hx Orthopedic Surgery - Cervical fusion, Hx Tubal Ligation, Other - Cataract surgery - Immunizations Immunizations up to date: Yes Hx Diphtheria, Pertussis, Tetanus Vaccination: No - unknown Physical Exam - Vital signs Vitals: Temp Pulse Resp BP Pulse Ox 98.6 F 107 H 16 102/75 96 04/26/20 11:25 04/26/20 11:25 04/26/20 11:25 04/26/20 11:25 04/26/20 11:25 Course - Vital Signs Vital signs: Temp Pulse Resp BP Pulse Ox 98.6 F 107 H 16 102/75 96 04/26/20 11:25 04/26/20 11:25 04/26/20 11:25 04/26/20 11:25 04/26/20 11:25 Doctor's Discharge - Discharge Referrals: PB FERRARO MD [Primary Care Provider] - Follow up as needed
[2020-04-26 12:20] LABS: ABSOLUTE BASOPHILS # (AUTO) 0.1 10^3/uL (0.0-0.2); ABSOLUTE EOSINOPHILS # (AUTO) 0.1 10^3/uL (0.0-0.6); ABSOLUTE MONOCYTES (AUTO) 0.5 10^3/uL (0.1-1.4); ABSOLUTE NEUT (AUTO) 5.9 10^3/uL (1.7-8.2); BASOPHILS % (AUTO) 0.9 % (0-2); EOSINOPHILS % (AUTO) 0.7 % (0-6); HEMATOCRIT 38.2 % (36.0-47.0); HEMOGLOBIN 12.6 g/dL (12.0-15.5); LYMPHOCYTES % (AUTO) 23.9 % (13-45); MEAN CORPUSCULAR HGB CONC 33.1 g/dL (32.0-36.0); MEAN CORPUSCULAR VOLUME 73 fl (80-97); MONOCYTES % (AUTO) 5.6 % (3-13); PLATELET COUNT 271 10^3/uL (150-450); RED BLOOD COUNT 5.26 10^6/uL (3.72-5.28); RED CELL DISTRIBUTION WIDTH 17.9 % (11.5-14.0); SEGMENTED NEUTROPHILS % (AUTO) 68.9 % (42-78); TOTAL CELLS COUNTED % (AUTO) 100 %; WHITE BLOOD COUNT 8.6 10^3/uL (4.0-10.5)
[2020-04-26 12:35] LABS: APPEARANCE,URINE CLEAR; BILIRUBIN,URINE NEGATIVE (NEGATIVE); COLOR,URINE YELLOW; GLUCOSE, URINE NEGATIVE (NEGATIVE); KETONES,URINE NEGATIVE (NEGATIVE); LEUKOCYTE ESTERASE,URINE NEGATIVE (NEGATIVE); NITRITE,URINE NEGATIVE (NEGATIVE); PROTEIN,URINE NEGATIVE (NEGATIVE); URINE SPECIFIC GRAVITY 1.013; UROBILINOGEN,URINE NEGATIVE mg/dL (<2.0)
[2020-04-26 12:49] LABS: ALBUMIN 4.4 g/dL (3.5-5.0); ALKALINE PHOSPHATASE 81 U/L (38-126); ANION GAP 11 (5-19); ASPARTATE AMINO TRANSFERASE 29 U/L (14-36); BILIRUBIN,DIRECT 0.3 mg/dL (0.0-0.4); BILIRUBIN,TOTAL 0.5 mg/dL (0.2-1.3); BLOOD UREA NITROGEN 21 mg/dL (7-20); CARBON DIOXIDE 27 mmol/L (22-30); CHLORIDE 101 mmol/L (98-107); GLUCOSE 106 mg/dL (75-110); POTASSIUM 3.9 mmol/L (3.6-5.0); TOTAL PROTEIN 7.9 g/dL (6.3-8.2)
--- NOTE | 2020-04-26 13:02 | RADIOLOGY REPORT (SQ) ---
EXAM DESCRIPTION: CHEST 2 VIEWS IMAGES COMPLETED DATE/TIME: 04/26/2020 12:40 pm REASON FOR STUDY: tachycardia COMPARISON: 09/20/2019 EXAM PARAMETERS: NUMBER OF VIEWS: two views TECHNIQUE: Digital Frontal and Lateral radiographic views of the chest acquired. RADIATION DOSE: NA LIMITATIONS: none FINDINGS: LUNGS AND PLEURA: No opacities, masses or pneumothorax. No pleural effusion. MEDIASTINUM AND HILAR STRUCTURES: No masses or contour abnormalities. HEART AND VASCULAR STRUCTURES: Heart normal size. No evidence for failure. BONES: No acute findings. HARDWARE: None in the chest. OTHER: No other significant finding. IMPRESSION: NO ACUTE RADIOGRAPHIC FINDING IN THE CHEST. TECHNICAL DOCUMENTATION: JOB ID: [id number] 2010 [employer]- All Rights Reserved Reading location - IP/workstation name: [email or web address]
--- NOTE | 2020-04-26 15:09 | ER Document Report ---
ED General - General Chief Complaint: General Weakness Stated Complaint: HAND PAIN Time Seen by Provider: 04/26/20 11:36 Primary Care Provider: PB FERRARO MD [Primary Care Provider] - Follow up as needed TRAVEL OUTSIDE OF THE [place] IN LAST 30 DAYS: No - HPI Notes: 70-year-old female presents with bilateral hand pain. Patient states for the past 2 weeks she has been having pain in her wrists and fourth and fifth digits bilaterally. She has no known injury. She states that she will often wake up with the pain sensation. It is sharp, stabbing, [id number]. She has not taken any oral medication. She states that she has applied icy hot and that does help with the pain. She states that she "can't use them". Patient states that this is her main reason for presentation to the emergency department today, she has not seen her PCP about this. States that she was at her neurologist office today for routine follow-up for post stroke care, had stroke in 2009, 2012, 2013, 2014, 2018. States that her neurologist listened to her heart and counted her pulse, states that she was told it was 126 and was advised to come get that checked out. States that she was having a lot of pain at the time and did not feel good. Patient also states that she told her neurologist that a couple of days ago she had some bright red blood when wiping after having a constipated type of bowel movement. Is not occurred since. At triage told provider that she has been having generalized fatigue and weakness and abdominal pain for the past month, patient now denies this. - Related Data Allergies/Adverse Reactions: No Known Allergies Allergy (Verified 04/26/20 11:30) Past Medical History - General Information source: Patient - Social History Smoking Status: Former Smoker Chew tobacco use (# tins/day): No Frequency of alcohol use: None Drug Abuse: None Family History: Reviewed & Not Pertinent, CVA, Hypertension Patient has homicidal ideation: No - Past Medical History Cardiac Medical History: Reports: Hx Hypercholesterolemia Pulmonary Medical History: Reports: Hx Bronchitis, Hx COPD, Hx Pneumonia - hx of Neurological Medical History: Reports: Hx Cerebrovascular Accident - 3 prior strokes resulting in left-sided weakness., Hx Migraine. Denies: Hx Parkinson's Disease Renal/ Medical History: Reports: Hx Kidney Stones. Denies: Hx Peritoneal Dialysis GI Medical History: Reports: Hx Gastroesophageal Reflux Disease, Hx Ulcer Musculoskeletal Medical History: Reports Hx Arthritis - Back & legs Psychiatric Medical History: Reports: Hx Anxiety, Hx Depression, Hx Schizophrenia Past Surgical History: Reports: Hx Cholecystectomy, Hx Gynecologic Surgery - Pelvic abscess surgery, Hx Hysterectomy, Hx Orthopedic Surgery - Cervical fusion, Hx Tubal Ligation, Other - Cataract surgery - Immunizations Immunizations up to date: Yes Hx Diphtheria, Pertussis, Tetanus Vaccination: No - unknown Hx Pneumococcal Vaccination: 08/12/09 Review of Systems - Review of Systems Constitutional: denies: Fever EENT: No symptoms reported Cardiovascular: denies: Chest pain Respiratory: denies: Cough, Short of breath Gastrointestinal: denies: Abdominal pain Genitourinary: No symptoms reported Musculoskeletal: Joint pain Skin: No symptoms reported Neurological/Psychological: denies: Weakness Physical Exam - Vital signs Vitals: Temp Pulse Resp BP Pulse Ox 98.6 F 107 H 16 102/75 96 04/26/20 11:25 04/26/20 11:25 04/26/20 11:25 04/26/20 11:25 04/26/20 11:25 - General General appearance: Appears well In distress: None - HEENT Head: Normocephalic, Atraumatic Extraocular movements intact: Yes Pupils: PERRL - Respiratory Breath sounds: Normal - Cardiovascular Rhythm: Regular Heart sounds: Normal auscultation Pulses: Normal: Radial - Abdominal Bowel sounds: Normal Tenderness: Nontender - Rectal Tenderness: No Hemorrhoids: No: External Notes: No gross blood - Extremities Notes: Patient has tenderness to ulnar side of wrist bilaterally. She has intact range of motion to bilateral hands, wrists and arms. There is no tenderness to elbow bilaterally. No swelling or erythema to her upper extremities. 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 She does have some tenderness to the ulnar aspect of both wrists, her sensation is in the ulnar distribution. Suspect that she has some compression of the ulnar nerve at wrist, potentially elbow. Given her age will obtain x-rays to assure that no pathological fracture is present. Motor and sensation are intact. Will trial Motrin and wrist splints for symptoms. She is not tachycardic on exam, discussed with her potential heart rate could been elevated due to pain. A large laboratory evaluation was initiated through triage, no major abnormalities so far. No current bleeding from rectum. Suspect that her reported bright red blood was related to constipation and has not occurred. 04/26/20 16:30 Images reviewed. Per radiology negative for fracture bilaterally. 04/26/20 16:35 No leukocytosis or left shift. Hemoglobin has much improved from previous checks. No elevation of d-dimer. Electrolytes are within normal limits. Creatinine is within normal limits. LFTs and lipase are within normal limits. Troponin is negative. TSH is within normal limits. Urine does not suggest UTI. 04/26/20 17:41 Patient given splints. Encourage PCP follow-up. Return precautions, stable time of discharge. - Vital Signs Vital signs: Temp Pulse Resp BP Pulse Ox 97.8 F 83 18 119/82 100 04/26/20 17:13 04/26/20 17:13 04/26/20 17:13 04/26/20 17:13 04/26/20 17:13 - Laboratory Result Diagrams: 04/26/20 12:10 04/26/20 12:10 Laboratory results interpreted by me: 04/26/20 04/26/20 04/26/20 12:10 12:10 12:10 MCV 73 L MCH 24.0 L RDW 17.9 H BUN 21 H Urine Blood MODERATE H Urine Ascorbic Acid 20 H - Diagnostic Test Radiology reviewed: Image reviewed, Reports reviewed - EKG Interpretation by Me Additional EKG results interpreted by me: EKG is interpreted by me. Normal sinus rhythm, rate 99. Narrow QRS, QTC within normal limits. Nonspecific ST changes.. Discharge - Discharge Clinical Impression: Bilateral wrist pain Disposition: HOME, SELF-CARE Additional Instructions: Apply the wrist splints before going to bed, see if this helps with the pain. Continue IcyHot. He may also continue ibuprofen/Motrin. Please have close follow-up with your primary care doctor. Return to emergency department for any concerning or worsening symptoms. Referrals: PB FERRARO MD [Primary Care Provider] - Follow up as needed
[2020-04-26] MEDS ORDERED: IBUPROFEN 600 MG TABLET PO ONE (15:29)
--- NOTE | 2020-04-26 16:24 | RADIOLOGY REPORT (SQ) ---
EXAM DESCRIPTION: WRIST BILATERAL 2 VIEWS IMAGES COMPLETED DATE/TIME: 04/26/2020 4:02 pm REASON FOR STUDY: b/l pain COMPARISON: None. NUMBER OF VIEWS: Four views. TECHNIQUE: AP and lateral radiographic images acquired of the right and left wrist. LIMITATIONS: None. FINDINGS: MINERALIZATION: Normal. BONES: No acute fracture or dislocation. No worrisome bone lesions. Normal alignment. SOFT TISSUES: No soft tissue swelling. No foreign body. OTHER: No other significant finding. IMPRESSION: No fracture. TECHNICAL DOCUMENTATION: JOB ID: [id number] 2010 [employer]- All Rights Reserved Reading location - IP/workstation name: [email or web address]
[2020-04-26 17:14] VITALS: BP 119/82
--- NOTE | 2020-04-27 00:52 | EKG REPORT ---
SEVERITY:- NORMAL ECG - SINUS RHYTHM : Confirmed by: Oscar Campbell 27-Apr-2020 00:52:31
== END 2020-04-26 18:00 | disposition home or self-care (01) ==
LOC: ER 11:11
DX: M25.531 Pain in right wrist (principal); M25.532 Pain in left wrist; M79.644 Pain in right finger(s); M79.645 Pain in left finger(s); J44.9 Chronic obstructive pulmonary disease, unspecified; Z87.891 Personal history of nicotine dependence; Z86.73 Personal history of transient ischemic attack (TIA), and cerebral infarction without residual deficits
CPT/HCPCS: 93005; 99285; 36415; 83690; 84443; 85025; 80053; 81001; 84484; 85379; 71046; 73100; 93010; A9270

== ENCOUNTER 2020-04-29 10:45 | Emergency (ER) | payer MEDICARE, MEDICAID ==
--- NOTE | 2020-04-29 12:15 | ER Document Report ---
ED Medical Screen (RME) - General Chief Complaint: Blood Pressure Problem Stated Complaint: BLOOD PRESSURE ISSUE Time Seen by Provider: 04/29/20 12:12 Primary Care Provider: PB FERRARO MD [Primary Care Provider] - Follow up as needed Mode of Arrival: Wheelchair Notes: HPI; 70-year-old female presents to the emergency room complaining of generalized weakness that started yesterday. Patient states she went for a pain shot for her pinched nerve and was not feeling well afterwards. States he took her blood pressure was elevated. She does not remember the actual reading. States she still feeling generally weak today. Denies nausea, vomiting, denies any chest pain or shortness of breath, no difficulty breathing. No recent travel. No COVID-19 exposure. PE: Alert and oriented x3. Mild distress noted. Lungs: Clear to auscultation without rales, rhonchi, wheezes. Heart: Tachycardic without murmurs, rubs, gallops. I have greeted and performed a rapid initial assessment of this patient. A comprehensive ED assessment and evaluation of the patient, analysis of test results and completion of the medical decision making process will be conducted by additional ED providers. I have specifically instructed the patient or family members with the patient to immediately return to any nursing staff should anything change in the patient's condition or with their chief complaint. TRAVEL OUTSIDE OF THE [place] IN LAST 30 DAYS: No - Related Data Allergies/Adverse Reactions: No Known Allergies Allergy (Verified 04/26/20 11:30) Past Medical History - Past Medical History Cardiac Medical History: Reports: Hx Hypercholesterolemia Pulmonary Medical History: Reports: Hx Bronchitis, Hx COPD, Hx Pneumonia - hx of Neurological Medical History: Reports: Hx Cerebrovascular Accident - [address] rokes resulting in left-sided weakness., Hx Migraine. Denies: Hx Parkinson's Disease Renal/ Medical History: Reports: Hx Kidney Stones. Denies: Hx Peritoneal Dialysis GI Medical History: Reports: Hx Gastroesophageal Reflux Disease, Hx Ulcer Musculoskeltal Medical History: Reports Hx Arthritis - Back & legs Psychiatric Medical History: Reports: Hx Anxiety, Hx Depression, Hx Schizophrenia Past Surgical History: Reports: Hx Cholecystectomy, Hx Gynecologic Surgery - Pelvic abscess surgery, Hx Hysterectomy, Hx Orthopedic Surgery - Cervical fusion, Hx Tubal Ligation, Other - Cataract surgery - Immunizations Immunizations up to date: Yes Hx Diphtheria, Pertussis, Tetanus Vaccination: No - unknown Physical Exam - Vital signs Vitals: Temp Pulse Resp BP Pulse Ox 98.3 F 108 H 16 127/91 H 99 04/29/20 10:49 04/29/20 10:49 04/29/20 10:49 04/29/20 10:49 04/29/20 10:49 Course - Vital Signs Vital signs: Temp Pulse Resp BP Pulse Ox 98.3 F 108 H 16 127/91 H 99 04/29/20 10:49 04/29/20 10:49 04/29/20 10:49 04/29/20 10:49 04/29/20 10:49 Doctor's Discharge - Discharge Referrals: PB FERRARO MD [Primary Care Provider] - Follow up as needed
[2020-04-29 12:34] LABS: ABSOLUTE MONOCYTES (AUTO) 0.3 10^3/uL (0.1-1.4); ABSOLUTE NEUT (AUTO) 6.7 10^3/uL (1.7-8.2); BASOPHILS % (AUTO) 0.4 % (0-2); HEMATOCRIT 38.3 % (36.0-47.0); HEMOGLOBIN 12.5 g/dL (12.0-15.5); MEAN CORPUSCULAR HEMOGLOBIN 23.6 pg (27.0-33.4); MEAN CORPUSCULAR HGB CONC 32.5 g/dL (32.0-36.0); MEAN CORPUSCULAR VOLUME 73 fl (80-97); MONOCYTES % (AUTO) 3.9 % (3-13); PLATELET COUNT 252 10^3/uL (150-450); RED BLOOD COUNT 5.28 10^6/uL (3.72-5.28); RED CELL DISTRIBUTION WIDTH 17.6 % (11.5-14.0); SEGMENTED NEUTROPHILS % (AUTO) 83.7 % (42-78); TOTAL CELLS COUNTED % (AUTO) 100 %
[2020-04-29 12:58] LABS: APPEARANCE,URINE SLIGHTLY-CLOUDY; BILIRUBIN,URINE NEGATIVE (NEGATIVE); COLOR,URINE YELLOW; GLUCOSE, URINE NEGATIVE (NEGATIVE); KETONES,URINE NEGATIVE (NEGATIVE); LEUKOCYTE ESTERASE,URINE NEGATIVE (NEGATIVE); NITRITE,URINE NEGATIVE (NEGATIVE); PROTEIN,URINE NEGATIVE (NEGATIVE); URINE SPECIFIC GRAVITY 1.023
[2020-04-29 13:01] LABS: ALBUMIN 4.3 g/dL (3.5-5.0); ALKALINE PHOSPHATASE 76 U/L (38-126); ANION GAP 8 (5-19); ASPARTATE AMINO TRANSFERASE 27 U/L (14-36); BILIRUBIN,DIRECT 0.3 mg/dL (0.0-0.4); BILIRUBIN,TOTAL 0.4 mg/dL (0.2-1.3); BLOOD UREA NITROGEN 25 mg/dL (7-20); CALCIUM 10.3 mg/dL (8.4-10.2); CARBON DIOXIDE 27 mmol/L (22-30); CHLORIDE 104 mmol/L (98-107); CREATINE KINASE 118 U/L (30-135); GLUCOSE 93 mg/dL (75-110); POTASSIUM 4.6 mmol/L (3.6-5.0); TOTAL PROTEIN 7.9 g/dL (6.3-8.2)
[2020-04-29 13:13] LABS: CREATINE KINASE MB 1.74 ng/mL (<4.55)
[2020-04-29 13:14] LABS: TROPONIN I < 0.012 ng/mL
--- NOTE | 2020-04-29 13:41 | RADIOLOGY REPORT (SQ) ---
EXAM DESCRIPTION: CHEST SINGLE VIEW IMAGES COMPLETED DATE/TIME: 04/29/2020 1:11 pm REASON FOR STUDY: weakness COMPARISON: 04/26/2020 EXAM PARAMETERS: NUMBER OF VIEWS: One view. TECHNIQUE: Single frontal radiographic view of the chest acquired. RADIATION DOSE: NA LIMITATIONS: None. FINDINGS: LUNGS AND PLEURA: No opacities, masses or pneumothorax. No pleural effusion. MEDIASTINUM AND HILAR STRUCTURES: No masses. Contour normal. HEART AND VASCULAR STRUCTURES: Heart normal in size. Normal vasculature. BONES: Scoliosis. HARDWARE: None in the chest. OTHER: No other significant finding. IMPRESSION: NO ACUTE RADIOGRAPHIC FINDING IN THE CHEST. TECHNICAL DOCUMENTATION: JOB ID: [id number] 2010 [employer]- All Rights Reserved Reading location - IP/workstation name: [email or web address]
--- NOTE | 2020-04-29 15:16 | ER Document Report ---
ED General - General Chief Complaint: Blood Pressure Problem Stated Complaint: BLOOD PRESSURE ISSUE Time Seen by Provider: 04/29/20 12:12 Primary Care Provider: PB FERRARO MD [Primary Care Provider] - Follow up as needed Mode of Arrival: Wheelchair Information source: Patient Notes: ED Medical Screen ([facility] notes) - General Chief Complaint: Blood Pressure Problem Stated Complaint: BLOOD PRESSURE ISSUE Time Seen by Provider: 04/29/20 12:12 Primary Care Provider: PB FERRARO MD [Primary Care Provider] - Follow up as needed Mode of Arrival: Wheelchair Notes: patient did not initially complain of chest pain on presentation to emergency room Did not complain of chest pain until she was being triaged. No ekg done on arrival due to no complain of chest pain on arrival. TRAVEL OUTSIDE OF THE [place] IN LAST 30 DAYS: No - Related Data Allergies/Adverse Reactions: No Known Allergies Allergy (Verified 04/26/20 11:30) Original Note: ED Medical Screen ([facility] notes) - General Chief Complaint: Blood Pressure Problem Stated Complaint: BLOOD PRESSURE ISSUE Time Seen by Provider: 04/29/20 12:12 Primary Care Provider: PB FERRARO MD [Primary Care Provider] - Follow up as needed Mode of Arrival: Wheelchair Notes: HPI; 70-year-old female presents to the emergency room complaining of generalized weakness that started yesterday. Patient states she went for a pain shot for her pinched nerve and was not feeling well afterwards. States he took her blood pressure was elevated. She does not remember the actual reading. States she still feeling generally weak today. Denies nausea, vomiting, denies any chest pain or shortness of breath, no difficulty breathing. No recent t ravel. No COVID-19 exposure. PE: Alert and oriented x3. Mild distress noted. Lungs: Clear to auscultation without rales, rhonchi, wheezes. Heart: Tachycardic without murmurs, rubs, gallops. MY NOTES 70-year-old black female arrives Complaining of weakness for 24 hours. She advised Cassi LANGE that she been weak for over 1 month. She has history of GERD hypertension COPD ethanol abuse and sick strokes with left-sided weakness left hand weakness and 2 CVAs in 2018. Patient was getting a pain shot for her pinched nerves at her pain doctor yesterday and she advises she had a 240 systolic pressure with some headache. Today she denies any headaches but feels especially weak. Her labs are within normal limits except for a 73 MCV. Patient's blood pressure today is 127/79. TRAVEL OUTSIDE OF THE [place] IN LAST 30 DAYS: No - HPI Onset: This morning Onset/Duration: Sudden Quality of pain: Achy Severity: None Associated symptoms: Weakness Exacerbated by: Movement Relieved by: Denies Similar symptoms previously: No Recently seen / treated by doctor: No - Related Data Allergies/Adverse Reactions: No Known Allergies Allergy (Verified 04/26/20 11:30) Past Medical History - General Information source: Patient - Social History Smoking Status: Former Smoker - quit b/o COPD years ago Cigarette use (# per day): No Chew tobacco use (# tins/day): No Smoking Education Provided: No Frequency of alcohol use: None Drug Abuse: None Lives with: Family Family History: Reviewed & Not Pertinent, CVA, Hypertension - Past Medical History Cardiac Medical History: Reports: Hx Hypercholesterolemia Pulmonary Medical History: Reports: Hx Bronchitis, Hx COPD, Hx Pneumonia - hx of Neurological Medical History: Reports: Hx Cerebrovascular Accident - 3 prior strokes resulting in left-sided weakness., Hx Migraine. Denies: Hx Parkinson's Disease Renal/ Medical History: Reports: Hx Kidney Stones. Denies: Hx Peritoneal Dialysis GI Medical History: Reports: Hx Gastroesophageal Reflux Disease, Hx Ulcer Musculoskeletal Medical History: Reports Hx Arthritis - Back & legs Psychiatric Medical History: Reports: Hx Anxiety, Hx Depression, Hx Schizophrenia Past Surgical History: Reports: Hx Cholecystectomy, Hx Gynecologic Surgery - Pelvic abscess surgery, Hx Hysterectomy, Hx Orthopedic Surgery - Cervical fusion, Hx Tubal Ligation, Other - Cataract surgery - Immunizations Immunizations up to date: Yes Hx Diphtheria, Pertussis, Tetanus Vaccination: No - unknown Hx Pneumococcal Vaccination: 08/12/09 Review of Systems - Review of Systems Constitutional: See HPI, Weakness. denies: Fever, Malaise, Weight gain, Weight loss, Recent illness EENT: No symptoms reported. denies: Eye pain, Eye discharge, Double vision, Ear pain, Ear discharge, Nose congestion, Nose discharge, Sinus discharge, Throat pain Cardiovascular: No symptoms reported. denies: Chest pain, Palpitations, Orthopnea Respiratory: No symptoms reported. denies: Hemoptysis, Short of breath, Sputum Gastrointestinal: No symptoms reported. denies: Vomiting, Constipation, Blood streaked bowels, Poor appetite, Blood in vomit Genitourinary: No symptoms reported. denies: Flank pain Female Genitourinary: No symptoms reported. denies: Post menopausal, Heavy/abnormal periods, Irregular period Musculoskeletal: No symptoms reported. denies: Joint swelling, Muscle pain Skin: No symptoms reported Hematologic/Lymphatic: No symptoms reported Neurological/Psychological: See HPI, Weakness, Headaches Physical Exam - Vital signs Vitals: Temp Pulse Resp BP Pulse Ox 98.3 F 108 H 16 127/91 H 99 04/29/20 10:49 04/29/20 10:49 04/29/20 10:49 04/29/20 10:49 04/29/20 10:49 Interpretation: Tachycardic, Tachypneic - General General appearance: Alert - HEENT Head: Normocephalic, Atraumatic Eyes: Normal Pupils: PERRL Sinus: Normal Nasal: Normal Mouth/Lips: Normal Mucous membranes: Normal Pharynx: Normal Neck: Normal - Respiratory Respiratory status: No respiratory distress Chest status: Nontender Breath sounds: Normal Chest palpation: Normal - Cardiovascular Rhythm: Tachycardia Heart sounds: Normal auscultation Murmur: No - Abdominal Inspection: Normal Distension: No distension Bowel sounds: Normal Tenderness: Nontender Organomegaly: No organomegaly - Rectal Hemorrhoids: Other - deferred - Genitourinary Bimanuel exam: Other - deferred - Back Back: Normal - Extremities General upper extremity: 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 lower extremity: Normal inspection - Neurological Neuro grossly intact: Yes Cognition: Normal Orientation: AAOx4 [place] Coma Scale Eye Opening: Spontaneous Harshad Coma Scale Verbal: Oriented [place] Coma Scale Motor: Obeys Commands Harshad Coma Scale Total: 15 Speech: Normal Motor strength normal: LUE, RUE, LLE, RLE Sensory: Normal - Psychological Associated symptoms: Normal affect - Skin Skin Temperature: Warm Skin Moisture: Dry Course - Vital Signs Vital signs: Temp Pulse Resp BP Pulse Ox 97.3 F 83 18 122/73 95 04/29/20 15:29 04/29/20 16:20 04/29/20 16:20 04/29/20 16:20 04/29/20 16:20 - Laboratory Result Diagrams: 04/29/20 12:24 04/29/20 12:24 Laboratory results interpreted by me: 04/29/20 04/29/20 04/29/20 12:24 12:24 12:34 MCV 73 L MCH 23.6 L RDW 17.6 H Lymph % (Auto) 12.0 L Seg Neutrophils % 83.7 H BUN 25 H Calcium 10.3 H Urine Blood SMALL H Urine Urobilinogen 2.0 H Urine Ascorbic Acid 40 H - Diagnostic Test Radiology reviewed: Reports reviewed - CT head wnl CXR nad per radiology Discharge - Discharge Clinical Impression: Weakness Anemia Qualifiers: Anemia type: iron deficiency Iron deficiency anemia type: unspecified iron deficiency Qualified Code(s): D50.9 - Iron deficiency anemia, unspecified Condition: Good Disposition: HOME, SELF-CARE Additional Instructions: Follow with personal doctor this week. Return to ER as needed. Take iron tablets as directed Prescriptions: Ferrous Fumarate [Hemocyte] 324 mg PO DAILY 30 Days #30 tablet Referrals: PB FERRARO MD [Primary Care Provider] - Follow up as needed
[2020-04-29] MEDS ORDERED: NORMAL SALINE 1000 ML 1,000 ML IV ONE (16:16)
[2020-04-29 17:06] LABS: URINE AMPHETAMINES SCREEN NEGATIVE; URINE BARBITURATES SCREEN NEGATIVE; URINE COCAINE SCREEN NEGATIVE; URINE MARIJUANA (THC) SCREEN NEGATIVE; URINE METHADONE SCREEN NEGATIVE; URINE PHENCYCLIDINE SCREEN NEGATIVE
[2020-04-29 17:07] LABS: URINE BENZODIAZEPINES SCREEN UNCONFIRMED POSITIVE
--- NOTE | 2020-04-29 17:11 | RADIOLOGY REPORT (SQ) ---
EXAM DESCRIPTION: CT HEAD WITHOUT IMAGES COMPLETED DATE/TIME: 04/29/2020 4:54 pm REASON FOR STUDY: ANNE weakness COMPARISON: 05/14/2019 TECHNIQUE: Axial images acquired through the brain without intravenous contrast. Images reviewed wi th bone, brain and subdural windows. Additional sagittal and coronal reconstructions were generated. Images stored on PACS. All CT scanners at this facility use dose modulation, iterative reconstruction, and/or weight based d osing when appropriate to reduce radiation dose to as low as reasonably achievable (ALARA). [facility]: Dose Right [facility]: CareDose [facility]: Dose Right [facility]: Teradose 4D [facility]: [employer] RADIATION DOSE: CT Rad equipment meets quality standard of care and radiation dose reduction techniq ues were employed. CTDIvol: 53.2 mGy. DLP: 937 mGy-cm. mGy. LIMITATIONS: None. FINDINGS: VENTRICLES: Normal size and contour. CEREBRUM: No masses. No hemorrhage. No midline shift. No evidence for acute infarction. Normal gra y/white matter differentiation. No areas of low density in the white matter. CEREBELLUM: No masses. No hemorrhage. No alteration of density. No evidence for acute infarction. EXTRAAXIAL SPACES: No fluid collections. No masses. ORBITS AND GLOBE: No intra- or extraconal masses. Normal contour of globe without masses. CALVARIUM: No fracture. PARANASAL SINUSES: No fluid or mucosal thickening. SOFT TISSUES: No mass or hematoma. OTHER: No other significant finding. IMPRESSION: NORMAL BRAIN CT WITHOUT CONTRAST. EVIDENCE OF ACUTE STROKE: NO. COMMENT: Quality ID # [id number]: Final reports with documentation of one or more dose reduction techniques (e.g., Automated exposure control, adjustment of the mA and/or kV according to patient size, use of iterative reconstruction technique) TECHNICAL DOCUMENTATION: JOB ID: [id number] 2010 [employer]- All Rights Reserved Reading location - IP/workstation name: [email or web address]
[2020-04-29 18:13] VITALS: BP 109/81
--- NOTE | 2020-04-29 21:02 | EKG REPORT ---
SEVERITY:- BORDERLINE ECG - SINUS RHYTHM [facility] BY VOLTAGE : Confirmed by: Oscar Campbell 29-Apr-2020 21:01:13
== END 2020-04-29 18:13 | disposition home or self-care (01) ==
LOC: ER 10:45
DX: R53.1 Weakness (principal); D50.9 Iron deficiency anemia, unspecified; R07.9 Chest pain, unspecified; G58.9 Mononeuropathy, unspecified; I10 Essential (primary) hypertension; J44.9 Chronic obstructive pulmonary disease, unspecified; R51 Headache; R00.0 Tachycardia, unspecified; Z87.891 Personal history of nicotine dependence
CPT/HCPCS: 36415; 70450; 71045; 80053; 80307; 81001; 82550; 82553; 84484; 85025; 93005; 93010; 99285

== ENCOUNTER → 2020-07-05 | Outpatient (CLI) | payer MEDICARE, MEDICAID ==
--- NOTE | 2020-07-05 11:10 | WOMENS IMAGING REPORT ---
EXAM DESCRIPTION: BILAT SCREENING MAMMO W/CAD IMAGES COMPLETED DATE/TIME: 07/05/2020 10:00 am REASON FOR STUDY: ROUTINE BILATERAL SCREENING;Z12.31 Z12.31 ENCNTR SCREEN MAMMOGRAM FOR MALIGNANT N EOPLASM OF ILLY COMPARISON: Priors back to 2011 EXAM PARAMETERS: Standard craniocaudal and mediolateral oblique views of each breast recorded using digital acquisition. Read with the assistance of CAD. .[facility] - [employer] Vice President Version 9.2 LIMITATIONS: None. FINDINGS: No suspicious masses, suspicious calcifications or architectural distortion. No areas of c oncern. IMPRESSION: NEGATIVE MAMMOGRAM. BIRADS 1 BREAST DENSITY: c. The breasts are heterogeneously dense, which may obscure small masses. BIRAD: ASSESSMENT: 1 NEGATIVE RECOMMENDATION: ROUTINE SCREENING COMMENT: The patient has been notified of the results by letter per [place] requirements. Additional no tification policies are in place for contacting patient with suspicious or incomplete findings. Quality ID #[id number]: The [employer] recommends an annual screening mammogram for women aged 40 years or over. This facility utilizes a reminder system to ensure that all patients receive reminder letters, and/or direct phone calls for appointments. This includes reminders for routine scr eening mammograms, diagnostic mammograms, or other Breast Imaging Interventions when appropriate. Th is patient will be placed in the appropriate reminder system. TECHNICAL DOCUMENTATION: FINDING NUMBER: (1) ASSESSMENT: (1) JOB ID: [id number] 2010 [employer]- All Rights Reserved Reading location - IP/workstation name: [email or web address]
== END ==
LOC: WI 09:01
PROVIDERS: ATTEND Nurse Practitioner Adult Health
DX: Z12.31 Encounter for screening mammogram for malignant neoplasm of breast (principal)
CPT/HCPCS: 77067